=== PATIENT | female | born 1985 | race Caucasian/White ===

== ENCOUNTER 2017-09-26 02:37 | Emergency (ER) | payer OTHER ==
[2017-09-26 02:53] VITALS: BP 118/81; TEMP 99.6; O2SAT 99
[2017-09-26] MEDS: diazePAM 5 MG TAB PO ONE (03:02)
[2017-09-26] MEDS: carBAMazepine 200 MG TAB PO ONE (03:02)
--- NOTE | 2017-09-26 03:37 | ED.PDOC ---
History of Present Illness - General Chief Complaint: Neuro Symptoms/Deficits Stated Complaint: headache, twitching, out of seizure meds Time Seen by Provider: 09/26/17 02:55 Source: patient Exam Limitations: no limitations - History of Present Illness Initial Comments: the patient is a 32-year-old female presenting to the emergency room with her significant other secondary to tremors and diaphoresis and shaking for the last 12 hours. The patient has been out of her Tegretol and Valium. She reports that she takes 250 mg of Tegretol 3 times a day and Valium 10 mg 3 times a day. She also does have anxiety and bipolar issues. She has seizure disorder with multiple kinds of seizures. She has just moved to this area and has not established a new primary care doctor. She is planning to do this after the fourth. Timing/Duration: 24 hours Severity: moderate Improving Factors: nothing Worsening Factors: nothing Associated Symptoms: denies symptoms Allergies/Adverse Reactions: Allergies Aspirin Allergy (Verified 09/26/17 02:52) Ibuprofen Allergy (Verified 09/26/17 02:52) Ketorolac Tromethamine [From Toradol] Allergy (Verified 09/26/17 02:52) Levofloxacin [From Levaquin] Allergy (Verified 09/26/17 02:52) Phenytoin [From Dilantin] Allergy (Verified 09/26/17 02:52) Tramadol Allergy (Verified 09/26/17 02:52) Vancomycin Allergy (Verified 09/26/17 02:52) Home Medications: Ambulatory Orders Diazepam [Valium] 2 mg PO Q8HR PRN #20 tab 09/26/17 Diazepam [Valium] 10 mg PO TID 09/26/17 Zolpidem Tartrate [Ambien] 10 mg PO BEDTIME 09/26/17 carBAMazepine [TEGretol] 200 mg PO Q8HR #45 tab 09/26/17 carBAMazepine [TEGretol] 250 mg PO TID 09/26/17 Review of Systems - Review of Systems Constitutional: States: no symptoms reported EENTM: States: no symptoms reported Respiratory: States: no symptoms reported Cardiology: States: no symptoms reported Gastrointestinal/Abdominal: States: no symptoms reported Genitourinary: States: no symptoms reported Musculoskeletal: States: no symptoms reported Skin: States: no symptoms reported Neurological: States: anxiety, tremors Endocrine: States: no symptoms reported All other Systems: No Change from Baseline Past Medical History (General) - Patient Medical History Hx Seizures: Yes Hx Stroke: No Hx Dementia: No Hx Asthma: Yes Hx of COPD: No Hx Cardiac Disorders: No Hx Congestive Heart Failure: No Hx Pacemaker: No Hx Hypertension: No Hx Thyroid Disease: No Hx Diabetes: No Hx Gastroesophageal Reflux: No Hx Renal Disease: No Hx Cancer: No Hx Hepatitis C: No Surgical History: cholecystectomy, Hysterectomy - Vaccination History Hx Tetanus, Diphtheria Vaccination: Yes Hx Influenza Vaccination: No - refuses to take Hx Pneumococcal Vaccination: No - refuses to take - Social History Hx Tobacco Use: No Hx Alcohol Use: Yes - occasional Family Medical History - Family History Mother Family History: Unknown Physical Exam - Physical Exam General Appearance: Alert, Anxious Eye Exam: bilateral normal Ears, Nose, Throat: hearing grossly normal, normal ENT inspection, normal pharynx Neck: full range of motion, supple Respiratory: lungs clear, normal breath sounds, no respiratory distress, no accessory muscle use Cardiovascular/Chest: normal peripheral pulses, regular rate, rhythm, no edema Peripheral Pulses: radial,right: 2+, radial,left: 2+ Gastrointestinal/Abdominal: non tender, soft Rectal Exam: deferred Back Exam: no vertebral tenderness Extremity: normal range of motion, no pedal edema, normal capillary refill Neurologic: awning hanger II-XII nml as tested, alert, oriented x 3, other - anxious Skin Exam: normal color Comments: Vital Signs - 24 hr 09/26/17 02:37 Temperature 99.6 F Pulse Rate [ 90 monitor] Respiratory 16 Rate Blood Pressure 118/81 [Right Arm] O2 Sat by Pulse 99 Oximetry Progress - Progress Progress: 09/26/17 03:37 the patient is a 32-year-old patient with a history of bipolar disorder and epilepsy presenting secondary to being out of medications and likely and some benzodiazepine withdrawal. The patient was given a dose of Tegretol and the dose of Valium here. She'll be written for 2 weeks worth of Tegretol 200 mg 3 times a day and Valium 2 mg 3 times a day for one week. She needs to reestablish primary care doctor. ER warnings were given. - EKG/XRAY/CT CT Ordered: No Departure - Departure Clinical Impression: Noncompliance Benzodiazepine withdrawal Qualifiers: Complication of substance-induced condition: uncomplicated Qualified Code(s): F13.230 - Sedative, hypnotic or anxiolytic dependence with withdrawal, uncomplicated Epilepsy Qualifiers: Epilepsy type: other generalized Intractability: not intractable Status epilepticus: without status epilepticus Qualified Code(s): G40.409 - Other generalized epilepsy and epileptic syndromes, not intractable, without status epilepticus Disposition: Discharge to Home or Self Care Condition: Fair Departure Forms: ED Discharge - Pt. Copy, Patient Portal Self Enrollment Instructions: Prescription Drug Withdrawal (DC) Diet: regular diet Activity: increase activity as tolerated Prescriptions: carBAMazepine [TEGretol] 200 mg PO Q8HR #45 tab Diazepam [Valium] 2 mg PO Q8HR PRN #20 tab PRN Reason: Anxiety Home Medications: Ambulatory Orders Diazepam [Valium] 2 mg PO Q8HR PRN #20 tab 09/26/17 Diazepam [Valium] 10 mg PO TID 09/26/17 Zolpidem Tartrate [Ambien] 10 mg PO BEDTIME 09/26/17 carBAMazepine [TEGretol] 200 mg PO Q8HR #45 tab 09/26/17 carBAMazepine [TEGretol] 250 mg PO TID 09/26/17 Additional Instructions: the patient is a 32-year-old patient with a history of bipolar disorder and epilepsy presenting secondary to being out of medications and likely and some benzodiazepine withdrawal. The patient was given a dose of Tegretol and the dose of Valium here. She'll be written for 2 weeks worth of Tegretol 200 mg 3 times a day and Valium 2 mg 3 times a day for one week. She needs to reestablish primary care doctor. ER warnings were given.
== END 2017-09-26 03:47 | disposition home or self-care (01) ==
LOC: ER 02:37
DX: F13.230 Sedative, hypnotic or anxiolytic dependence with withdrawal, uncomplicated (principal); G40.409 Other generalized epilepsy and epileptic syndromes, not intractable, without status epilepticus; Z91.19 Patient's noncompliance with other medical treatment and regimen; Z79.899 Other long term (current) drug therapy

== ENCOUNTER 2017-09-28 22:42 | Emergency (ER) | payer OTHER ==
[2017-09-28] MEDS ORDERED: GABAPENTIN 300 MG CAP PO ONE (23:29)
--- NOTE | 2017-09-28 23:32 | ED.PDOC ---
History of Present Illness - General Chief Complaint: Neuro Symptoms/Deficits Stated Complaint: Seizure Time Seen by Provider: 09/28/17 23:22 Source: patient Exam Limitations: no limitations - History of Present Illness Initial Comments: the patient is a 32-year-old female presenting to the emergency room secondary to persistent increase in her epileptic activity according to her. She was seen here a few days ago after she had run out of her medications to treat her epilepsy from a move up from [facility]. She was written for her Tegretol and essentially full dose but the Valium was written at a smaller dose as she was saying that the Valium that she was taking was 10 mg 3 times a day. In the 2 visits that I seen her about not seeing anything that looks like a seizure like activity. At rest she is showing some generalized spastic motions however these do stop when she is distracted by something else. She is alert and oriented. No evidence of any injury. She reports that she has been on Neurontin before as little as 3 or 4 months ago. She does not remember the dose. Timing/Duration: unsure Severity: moderate Improving Factors: nothing Worsening Factors: nothing Associated Symptoms: denies symptoms Allergies/Adverse Reactions: Allergies Aspirin Allergy (Verified 09/28/17 23:26) Ibuprofen Allergy (Verified 09/28/17 23:26) Ketorolac Tromethamine [From Toradol] Allergy (Verified 09/28/17 23:26) Levofloxacin [From Levaquin] Allergy (Verified 09/28/17 23:26) Phenytoin [From Dilantin] Allergy (Verified 09/28/17 23:26) Tramadol Allergy (Verified 09/28/17 23:26) Vancomycin Allergy (Verified 09/28/17 23:26) Home Medications: Ambulatory Orders Diazepam [Valium] 2 mg PO Q8HR PRN #20 tab 09/26/17 Diazepam [Valium] 10 mg PO TID 09/26/17 Zolpidem Tartrate [Ambien] 10 mg PO BEDTIME 09/26/17 carBAMazepine [TEGretol] 200 mg PO Q8HR #45 tab 09/26/17 carBAMazepine [TEGretol] 250 mg PO TID 09/26/17 Gabapentin 100 mg PO TID #30 cap 09/28/17 Review of Systems - Review of Systems Constitutional: States: no symptoms reported EENTM: States: no symptoms reported Respiratory: States: no symptoms reported Cardiology: States: no symptoms reported Gastrointestinal/Abdominal: States: no symptoms reported Genitourinary: States: no symptoms reported Musculoskeletal: States: no symptoms reported Skin: States: no symptoms reported Neurological: States: see HPI Endocrine: States: no symptoms reported All other Systems: No Change from Baseline Past Medical History (General) - Patient Medical History Hx Seizures: Yes Hx Stroke: No Hx Dementia: No Hx Asthma: Yes Hx of COPD: No Hx Cardiac Disorders: No Hx Congestive Heart Failure: No Hx Pacemaker: No Hx Hypertension: No Hx Thyroid Disease: No Hx Diabetes: No Hx Gastroesophageal Reflux: No Hx Renal Disease: No Hx Cancer: No Hx Hepatitis C: No - Vaccination History Hx Tetanus, Diphtheria Vaccination: Yes Hx Influenza Vaccination: No - refuses to take Hx Pneumococcal Vaccination: No - refuses to take - Social History Hx Tobacco Use: No Hx Alcohol Use: Yes - occasional Family Medical History - Family History Mother Family History: Unknown Physical Exam - Physical Exam General Appearance: Alert, No apparent distress Eye Exam: bilateral normal - no abnormal nystagmus. Extraocular movements are intact. Ears, Nose, Throat: hearing grossly normal Neck: full range of motion, supple Respiratory: no respiratory distress, no accessory muscle use Cardiovascular/Chest: normal peripheral pulses, no edema Peripheral Pulses: radial,right: 2+, radial,left: 2+ Gastrointestinal/Abdominal: other - obese Rectal Exam: deferred Extremity: no pedal edema, no calf tenderness, normal capillary refill Neurologic: non food receiving clerk II-XII nml as tested, alert, oriented x 3 Skin Exam: normal color Progress - Progress Progress: 09/28/17 23:33 the patient is a 32-year-old female presenting to the emergency room secondary to what she is reporting to be an increased frequency of her seizure activity. The patient is going to have Neurontin 100 mg 3 times a day added to her medications. She has reported that she is getting set up with a new doctor for management of her seizure activity. She does need to keep this follow-up. ER warnings were given. Departure - Departure Clinical Impression: Epilepsy Qualifiers: Epilepsy type: unspecified Intractability: not intractable Status epilepticus: without status epilepticus Qualified Code(s): G40.909 - Epilepsy, unspecified, not intractable, without status epilepticus Disposition: Discharge to Home or Self Care Condition: Fair Departure Forms: ED Discharge - Pt. Copy, Patient Portal Self Enrollment Diet: regular diet Activity: increase activity as tolerated Prescriptions: Gabapentin 100 mg PO TID #30 cap Home Medications: Ambulatory Orders Diazepam [Valium] 2 mg PO Q8HR PRN #20 tab 09/26/17 Diazepam [Valium] 10 mg PO TID 09/26/17 Zolpidem Tartrate [Ambien] 10 mg PO BEDTIME 09/26/17 carBAMazepine [TEGretol] 200 mg PO Q8HR #45 tab 09/26/17 carBAMazepine [TEGretol] 250 mg PO TID 09/26/17 Gabapentin 100 mg PO TID #30 cap 09/28/17 Additional Instructions: the patient is a 32-year-old female presenting to the emergency room secondary to what she is reporting to be an increased frequency of her seizure activity. The patient is going to have Neurontin 100 mg 3 times a day added to her medications. She has reported that she is getting set up with a new doctor for management of her seizure activity. She does need to keep this follow-up. ER warnings were given. seizure activity precautions were given.
[2017-09-28 23:34] VITALS: O2SAT 96
[2017-09-28 23:36] VITALS: TEMP 98.9
[2017-09-28 23:44] VITALS: BP 103/73
== END 2017-09-28 23:43 | disposition home or self-care (01) ==
LOC: ER 22:42
DX: G40.909 Epilepsy, unspecified, not intractable, without status epilepticus (principal); Z79.899 Other long term (current) drug therapy

== ENCOUNTER → 2017-10-06 | Outpatient (CLI) | payer OTHER ==
--- NOTE | 2017-10-10 10:17 | MAM ---
EXAM DESCRIPTION: 3D Screening BILATERAL : Digital Mammography. CLINICAL HISTORY: 32 years Female SCREENING . No complaints. Sister and mother with breast cancer. Childbirth. Postmenopausal. No HRT.. COMPARISON: Baseline study at this facility.. No prior reports available. Reports from prior examinations also reviewed. Report from prior examination also reviewed. TECHNIQUE: Bilateral CC and MLO projection full-field images, 3-D tomosynthesis digital mammographic technique. CAD not utilized. FINDINGS: The breast parenchymal density pattern is: Scattered areas of fibroglandular density. No skin thickening or nipple retraction. Probable skin mole upper bilateral right breast posterior third. Left axillary lymph node. Small solitary microcalcifications bilaterally. No new focal, stellate mass or density, focal asymmetry , and no suspicious microcalcifications. IMPRESSION: BI-RADS CATEGORY: 2 - BENIGN FINDINGS. FOLLOW UP: Routine digital bilateral screening, one year interval from September 2017. Normally, screening would began at age 40 (please see below), but starting earlier due to strong positive family history. Also consider yearly breast MRI without and with gadolinium IV contrast due to strong positive family history (please see below.) Written communication explaining the IMPRESSION and follow-up, will be mailed to the patient and referring health care provider. According to the [employer], yearly mammograms are recommended starting at age 40 and continuing as long as a woman is in good health. Any breast change noted on a breast self-exam should be reported promptly to the patient's healthcare provider. Breast MRI is recommended for women with an approximately 20-25% or greater lifetime risk of breast cancer, including women with a strong family history of breast or ovarian cancer and women who have been treated for Hodgkin's disease. A negative mammographic report should not delay tissue diagnosis in patients with significant clinical history or physical findings. Extremely dense breast tissue limits the sensitivity of digital mammography. Electronically signed by: Monty Kim MD 10/10/2017 10:15 AM CDT
== END ==
LOC: MAMMO 12:31
PROVIDERS: ATTEND Nurse Practitioner Family
DX: Z12.31 Encounter for screening mammogram for malignant neoplasm of breast (principal); G40.909 Epilepsy, unspecified, not intractable, without status epilepticus

== ENCOUNTER 2017-12-10 03:00 | Emergency (ER) | payer OTHER ==
--- NOTE | 2017-12-10 03:39 | ED.PDOC ---
History of Present Illness - General Chief Complaint: Back Pain or Injury Stated Complaint: low back pain Time Seen by Provider: 12/10/17 03:25 Source: patient Exam Limitations: no limitations - History of Present Illness Initial Comments: Betsey Rowan 32 y/o female stated that she was reaching package on top of the fridge the stool that she was standing on slipped off then fell on her back.Had dull ache from her neck down to her back non radiating.Denies head injury;no blurry vision.No bladder or bowel dysfunction,no numbness,no weakness. Timing/Duration: 4-6 hours Quality/Severity: dullness Back Pain Location: C-spine, T-spine, lumbar spine, other - left shoulder Back Pain Radiation: other - none Method of Injury/Prior Injury: fell Improving Factors: rest Worsening Factors: movement Associated Symptoms: denies symptoms Allergies/Adverse Reactions: Allergies Aspirin Allergy (Verified 09/28/17 23:26) Ibuprofen Allergy (Verified 09/28/17 23:26) Ketorolac Tromethamine [From Toradol] Allergy (Verified 09/28/17 23:26) Levofloxacin [From Levaquin] Allergy (Verified 09/28/17 23:26) Phenytoin [From Dilantin] Allergy (Verified 09/28/17 23:26) Tramadol Allergy (Verified 09/28/17 23:26) Vancomycin Allergy (Verified 09/28/17 23:26) Home Medications: Ambulatory Orders Diazepam [Valium] 2 mg PO Q8HR PRN #20 tab 09/26/17 Diazepam [Valium] 10 mg PO TID 09/26/17 Zolpidem Tartrate [Ambien] 10 mg PO BEDTIME 09/26/17 carBAMazepine [TEGretol] 200 mg PO Q8HR #45 tab 09/26/17 carBAMazepine [TEGretol] 250 mg PO TID 09/26/17 Gabapentin 100 mg PO TID #30 cap 09/28/17 Baclofen 20 mg PO BID #10 tab 12/10/17 Review of Systems - Review of Systems Constitutional: States: no symptoms reported EENTM: States: no symptoms reported Respiratory: States: no symptoms reported Cardiology: States: no symptoms reported Gastrointestinal/Abdominal: States: no symptoms reported Genitourinary: States: no symptoms reported Musculoskeletal: States: back pain Skin: States: no symptoms reported Neurological: States: no symptoms reported Past Medical History (General) - Patient Medical History Hx Seizures: Yes Hx Stroke: No Hx Dementia: No Hx Asthma: Yes Hx of COPD: No Hx Cardiac Disorders: No Hx Congestive Heart Failure: No Hx Pacemaker: No Hx Hypertension: No Hx Thyroid Disease: No Hx Diabetes: No Hx Gastroesophageal Reflux: No Hx Renal Disease: No Hx Cancer: No Hx Hepatitis C: No Hx Other PMH: Yes - bipolar Surgical History: cholecystectomy, Hysterectomy, other - hyaterectomy - Vaccination History Hx Tetanus, Diphtheria Vaccination: Yes Hx Influenza Vaccination: No Hx Pneumococcal Vaccination: No - Social History Hx Tobacco Use: No Hx Alcohol Use: No Hx Substance Use: No Hx Substance Use Treatment: No Hx Depression: No Hx Physical Abuse: No Hx Emotional Abuse: No - Female History Patient is a Female of Child Bearing Age (10 -59 yrs old): No - Triage Comment ED Triage Comment: Pt reports she fell off chair trying to reach for something up in cabinet. This occurred earlier in evening. PT took some tylenol but no relief. Pt hurts in upper back shoulder area Family Medical History - Family History Mother Family History: Unknown Hx Family Asthma: Yes - child Hx Family Cancer: Yes - breast-sister Physical Exam - Physical Exam General Appearance: Alert, Comfortable, No apparent distress Eyes, Ears, Nose, Throat Exam: normal ENT inspection Neck Exam: non-tender, normal alignment, normal inspection, limited range of motion, muscle spasm Cardiovascular/Respiratory: regular rate, rhythm, no M/R/G, normal peripheral pulses Peripheral Pulses: radial,right: 2+, radial,left: 2+ Gastrointestinal/Abdominal: normal bowel sounds, non tender, soft, no organomegaly Back Exam: no CVA tenderness, no vertebral tenderness, muscle spasm - paralumbar muscle Extremity Exam: no evidence of injury, normal range of motion - both hips,no pain on external/ internal rotation, non-tender, no pedal edema, pelvis stable Neurologic: no motor/sensory deficits, alert, oriented x 3, other - negative straight leg raising test bilaterally Progress - Progress Progress: 12/10/17 03:45 Vital Signs - 8 hr 12/10/17 03:11 Temperature 98.9 F Pulse Rate [ 108 H left] Respiratory 18 Rate Blood Pressure 123/77 [left] O2 Sat by Pulse 96 Oximetry - EKG/XRAY/CT XRAY: c-spine,left shoulder,lumbar spine-no fracture Departure - Departure Clinical Impression: Muscle spasm Fall at home Qualifiers: Encounter type: initial encounter Qualified Code(s): W19.XXXA - Unspecified fall, initial encounter; Y92.009 - Unspecified place in unspecified non- institutional (private) residence as the place of occurrence of the external cause; Y92.009 - Unspecified place in unspecified non-institutional (private) residence as the place of occurrence of the external cause Backache, unspecified Qualifiers: Back pain location: back pain in unspecified location Chronicity: unspecified Back pain laterality: midline Qualified Code(s): M54.89 - Other dorsalgia Time of Disposition: 04:45 Disposition: Discharge to Home or Self Care Condition: Fair Departure Forms: ED Discharge - Pt. Copy, Patient Portal Self Enrollment Instructions: DI for Low Back Pain, DI for Back Spasm Referrals: Rach Howard, [employer] [Primary Care Provider] - 1-2 Weeks Prescriptions: Baclofen 20 mg PO BID #10 tab Home Medications: Ambulatory Orders Diazepam [Valium] 2 mg PO Q8HR PRN #20 tab 09/26/17 Diazepam [Valium] 10 mg PO TID 09/26/17 Zolpidem Tartrate [Ambien] 10 mg PO BEDTIME 09/26/17 carBAMazepine [TEGretol] 200 mg PO Q8HR #45 tab 09/26/17 carBAMazepine [TEGretol] 250 mg PO TID 09/26/17 Gabapentin 100 mg PO TID #30 cap 09/28/17 Baclofen 20 mg PO BID #10 tab 12/10/17 Additional Instructions: Follow up with primary Md 12 December 2017 as needed
--- NOTE | 2017-12-10 04:23 | RAD ---
EXAM DESCRIPTION: Shoulder,Left 2 or More Views CLINICAL HISTORY: 32 years Female, fall/pain COMPARISON: None. FINDINGS: No fracture or dislocation. Soft tissues are unremarkable. IMPRESSION: No acute abnormality. Electronically signed by: Roque Chavez DO 12/10/2017 4:22 AM CDT
--- NOTE | 2017-12-10 04:24 | RAD ---
EXAM DESCRIPTION: Cervical Spine,3 Views CLINICAL HISTORY: 32 years Female, fall/pain COMPARISON: None. FINDINGS: Disc space narrowing and marginal osteophytes throughout the cervical spine most pronounced at C5-6. There is straightening of the normal cervical lordosis. No subluxation. No acute fracture. Soft tissues are unremarkable. IMPRESSION: No acute abnormality. Electronically signed by: Roque Chavez DO 12/10/2017 4:23 AM CDT
--- NOTE | 2017-12-10 04:25 | RAD ---
EXAM DESCRIPTION: Lumbar Spine 3 Views CLINICAL HISTORY: 32 years Female, fall/pain COMPARISON: None. FINDINGS: The vertebral body heights and disc spaces are preserved. No acute fracture or subluxation. Soft tissues are unremarkable. IMPRESSION: No acute abnormality. Electronically signed by: Roque Chavez DO 12/10/2017 4:23 AM CDT
[2017-12-10] MEDS ORDERED: PROMETHAZINE HCL INJ 25 MG/ML VIAL IM ONE (04:36)
[2017-12-10] MEDS ORDERED: MORPHINE SULFATE INJ 10 MG/ML VIAL IM ONE (04:36)
[2017-12-10] MEDS ORDERED: ORPHENADRINE CITRATE 30 MG/ML AMP IM ONE (04:36)
[2017-12-10] MEDS ORDERED: ACETAMINOPHEN W/COD #3 TAB (ER Disp) PO ONE (04:42)
[2017-12-10 04:52] VITALS: O2SAT 98
[2017-12-10 05:12] VITALS: BP 123/78; TEMP 97
--- NOTE | 2017-12-10 07:25 | RAD ---
EXAM DESCRIPTION: Thoracic Spine Lateral Only CLINICAL HISTORY: 32 years Female, fall/pain COMPARISON: None. FINDINGS: Only a lateral and swimmer's view were provided. No obvious fracture or subluxation. Soft tissues are grossly unremarkable. IMPRESSION: No gross abnormalities on limited lateral views of the thoracic spine. Electronically signed by: Roque Chavez DO 12/10/2017 7:24 AM CDT
== END 2017-12-10 05:00 | disposition home or self-care (01) ==
LOC: ER 03:00
DX: M62.830 Muscle spasm of back (principal); M25.512 Pain in left shoulder; F31.9 Bipolar disorder, unspecified; J45.909 Unspecified asthma, uncomplicated; Z79.899 Other long term (current) drug therapy; Z88.8 Allergy status to other drugs, medicaments and biological substances; Z88.1 Allergy status to other antibiotic agents; Z88.6 Allergy status to analgesic agent; Z90.49 Acquired absence of other specified parts of digestive tract; W17.89XA Other fall from one level to another, initial encounter; Y92.009 Unspecified place in unspecified non-institutional (private) residence as the place of occurrence of the external cause; Y93.89 Activity, other specified
CPT/HCPCS: 72020; 72040; 72100; 73030; J2270; J2360; J2550

== ENCOUNTER 2017-12-10 13:24 | Emergency (ER) | payer OTHER ==
[2017-12-10] MEDS ORDERED: TETRACAINE HCL 0.5% OPHTH SOL 1 DROP OPHTH ONE (13:25)
[2017-12-10] MEDS ORDERED: LORazepam 0.5 MG TAB PO ONE (13:55)
--- NOTE | 2017-12-10 14:12 | ED.PDOC ---
History of Present Illness - General Chief Complaint: Eye Problems Stated Complaint: eye pain Time Seen by Provider: 12/10/17 14:07 Source: patient Exam Limitations: no limitations Additional Information: 32 YEAR OLD WHITE FEMALE PRESENTS WITH LEFT EYE BLURRED VISION ITCHING AND BLEEDING FROM THAT EYE SUDDEN ONSET TODAY NO SIMILAR PROBLEMS IN THE PAST SHE HAS HISTORY OF SEIZURES BIPOLAR DISORSER ANXIETY DM ON DIET CONTROL SHE HAS ALLERGIES NO PETS IN HER APPARTMENT SHE HAS NO EYE PAIN MORE OF A IRRITATION THOUGHT SHE COULD NOT READ ANY LETTERS ON THE CHART AFTER TETRACAINE INSTILLATION AND SHE HAD A VISION OF 20/ 40 ON THE AFFECTED LEFT EYE 20/30 ON THE UNAFFECTED RIGHT EYE PUPILS EQUAL AND REACTIVE CONJUNCTIVA ON THE LEFT SIDE WAS INJECTED AND EYELIDS WERE MILDLY SWOLLEN NO MATTING NOTED NO MUCO-PURULANT DISCHARGE - History of Present Illness Timing/Duration: abrupt, this morning EENT Location: eye (L) Improving Factors: nothing Worsening Factors: nothing Associated Symptoms: denies symptoms Allergies/Adverse Reactions: Allergies Aspirin Allergy (Verified 09/28/17 23:26) Ibuprofen Allergy (Verified 09/28/17 23:26) Ketorolac Tromethamine [From Toradol] Allergy (Verified 09/28/17 23:26) Levofloxacin [From Levaquin] Allergy (Verified 09/28/17 23:26) Phenytoin [From Dilantin] Allergy (Verified 09/28/17 23:26) Tramadol Allergy (Verified 09/28/17 23:26) Vancomycin Allergy (Verified 09/28/17 23:26) Home Medications: Ambulatory Orders Diazepam [Valium] 2 mg PO Q8HR PRN #20 tab 09/26/17 Diazepam [Valium] 10 mg PO TID 09/26/17 Zolpidem Tartrate [Ambien] 10 mg PO BEDTIME 09/26/17 carBAMazepine [TEGretol] 200 mg PO Q8HR #45 tab 09/26/17 carBAMazepine [TEGretol] 250 mg PO TID 09/26/17 Gabapentin 100 mg PO TID #30 cap 09/28/17 Baclofen 20 mg PO BID #10 tab 12/10/17 Olopatadine HCl [Patanol] 0.1 % OP Q6HRS #1 stas 12/10/17 Review of Systems - Review of Systems Constitutional: States: no symptoms reported EENTM: States: blurred vision Respiratory: States: no symptoms reported Cardiology: States: no symptoms reported Gastrointestinal/Abdominal: States: no symptoms reported Genitourinary: States: no symptoms reported Musculoskeletal: States: no symptoms reported Skin: States: no symptoms reported Neurological: States: no symptoms reported Endocrine: States: no symptoms reported Hematologic/Lymphatic: States: no symptoms reported Past Medical History (General) - Patient Medical History Hx Seizures: Yes Hx Stroke: No Hx Dementia: No Hx Asthma: Yes Hx of COPD: No Hx Cardiac Disorders: No Hx Congestive Heart Failure: No Hx Pacemaker: No Hx Hypertension: No Hx Thyroid Disease: No Hx Diabetes: No Hx Gastroesophageal Reflux: No Hx Renal Disease: No Hx Cancer: No Hx Hepatitis C: No - Vaccination History Hx Tetanus, Diphtheria Vaccination: Yes Hx Influenza Vaccination: No Hx Pneumococcal Vaccination: No - Social History Hx Tobacco Use: No Hx Alcohol Use: No Hx Substance Use: No Hx Substance Use Treatment: No Hx Depression: No Hx Physical Abuse: No Hx Emotional Abuse: No Family Medical History - Family History Mother Family History: Unknown Hx Family Asthma: Yes - child Hx Family Cancer: Yes - breast-sister Physical Exam - Physical Exam General Appearance: Alert, Comfortable Eye Exam: right normal, left conjunctivae pale - INJECTED, left other - EDEMATOUS Nasal Exam: normal inspection Throat Exam: normal mouth inspection, pharynx normal, dental tenderness Neck: non-tender, full range of motion, supple 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 Copy, Patient Portal Self Enrollment Referrals: Rach Howard NP [Primary Care Provider] - 1-2 Weeks Prescriptions: Olopatadine HCl [Patanol] 0.1 % OP Q6HRS #1 stas Home Medications: Ambulatory Orders Diazepam [Valium] 2 mg PO Q8HR PRN #20 tab 09/26/17 Diazepam [Valium] 10 mg PO TID 09/26/17 Zolpidem Tartrate [Ambien] 10 mg PO BEDTIME 09/26/17 carBAMazepine [TEGretol] 200 mg PO Q8HR #45 tab 09/26/17 carBAMazepine [TEGretol] 250 mg PO TID 09/26/17 Gabapentin 100 mg PO TID #30 cap 09/28/17 Baclofen 20 mg PO BID #10 tab 12/10/17 Olopatadine HCl [Patanol] 0.1 % OP Q6HRS #1 stas 12/10/17
[2017-12-10 14:34] VITALS: BP 132/73; TEMP 97.4; O2SAT 95
== END 2017-12-10 14:22 | disposition home or self-care (01) ==
LOC: ER 13:24
DX: H10.12 Acute atopic conjunctivitis, left eye (principal); F31.9 Bipolar disorder, unspecified; F41.9 Anxiety disorder, unspecified; R56.9 Unspecified convulsions; E11.9 Type 2 diabetes mellitus without complications; J45.909 Unspecified asthma, uncomplicated; Z79.899 Other long term (current) drug therapy; Z88.6 Allergy status to analgesic agent; Z88.1 Allergy status to other antibiotic agents; Z88.8 Allergy status to other drugs, medicaments and biological substances

== ENCOUNTER 2017-12-14 19:49 | Emergency (ER) | payer OTHER ==
--- NOTE | 2017-12-14 19:58 | ED.PDOC ---
History of Present Illness - General Time Seen by Provider: 12/14/17 19:53 Source: patient, RN notes reviewed, Vital Signs reviewed, EMS notes reviewed Exam Limitations: no limitations - History of Present Illness Timing/Duration: 1/2 hour, other - hit right side of head Severity: moderate Improving Factors: nothing Worsening Factors: nothing Associated Symptoms: loss of consciousness, seizures Allergies/Adverse Reactions: Allergies Aspirin Allergy (Verified 09/28/17 23:26) Ibuprofen Allergy (Verified 09/28/17 23:26) Ketorolac Tromethamine [From Toradol] Allergy (Verified 09/28/17 23:26) Levofloxacin [From Levaquin] Allergy (Verified 09/28/17 23:26) Phenytoin [From Dilantin] Allergy (Verified 09/28/17 23:26) Tramadol Allergy (Verified 09/28/17 23:26) Vancomycin Allergy (Verified 09/28/17 23:26) Home Medications: Ambulatory Orders Diazepam [Valium] 2 mg PO Q8HR PRN #20 tab 09/26/17 Diazepam [Valium] 10 mg PO TID 09/26/17 Zolpidem Tartrate [Ambien] 10 mg PO BEDTIME 09/26/17 carBAMazepine [TEGretol] 200 mg PO Q8HR #45 tab 09/26/17 carBAMazepine [TEGretol] 250 mg PO TID 09/26/17 Gabapentin 100 mg PO TID #30 cap 09/28/17 Baclofen 20 mg PO BID #10 tab 12/10/17 Olopatadine HCl [Patanol] 0.1 % OP Q6HRS #1 stas 12/10/17 Acetaminophen W/ Codeine [Tylenol W/ CODEINE #3] 1 ea PO Q6H PRN #6 12/14/17 Ondansetron Odt (ER Disp) [Zofran ODT (ER DISP)] 8 mg PO BID PRN #6 tab Review of Systems - Review of Systems Constitutional: States: no symptoms reported EENTM: States: no symptoms reported Respiratory: States: no symptoms reported Cardiology: States: no symptoms reported Gastrointestinal/Abdominal: States: nausea, vomiting Genitourinary: States: no symptoms reported Musculoskeletal: States: no symptoms reported Skin: States: no symptoms reported Neurological: States: headache, seizure Endocrine: States: no symptoms reported Hematologic/Lymphatic: States: no symptoms reported Past Medical History (General) - Patient Medical History Hx Seizures: Yes Hx Stroke: No Hx Dementia: No Hx Asthma: Yes Hx of COPD: No Hx Cardiac Disorders: No Hx Congestive Heart Failure: No Hx Pacemaker: No Hx Hypertension: No Hx Thyroid Disease: No Hx Diabetes: No Hx Gastroesophageal Reflux: No Hx Renal Disease: No Hx Cancer: No Hx Hepatitis C: No - Vaccination History Hx Tetanus, Diphtheria Vaccination: Yes Hx Influenza Vaccination: No Hx Pneumococcal Vaccination: No - Social History Hx Tobacco Use: No Hx Alcohol Use: No Hx Substance Use: No Hx Substance Use Treatment: No Hx Depression: No Hx Physical Abuse: No Hx Emotional Abuse: No Family Medical History - Family History Mother Family History: Unknown Hx Family Asthma: Yes - child Hx Family Cancer: Yes - breast-sister Physical Exam - Physical Exam General Appearance: Alert, Well Developed, Well Groomed, Well Hydrated, Well Nourished Eye Exam: bilateral normal ENT Exam: normal ENT inspection, hearing grossly normal, TMs normal, pharynx normal, nasal congestion Neck: non-tender, full range of motion, supple, normal inspection Respiratory: chest non-tender, lungs clear, normal breath sounds, no respiratory distress, no accessory muscle use Cardiovascular/Chest: normal peripheral pulses, regular rate, rhythm, no edema, no gallop Peripheral Pulses: radial,right: 2+ Gastrointestinal/Abdominal: non tender, soft Back Exam: normal inspection, no CVA tenderness, no vertebral tenderness Extremities Exam: non-tender, normal range of motion, no evidence of injury Mental Status: alert, 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 pt states that has been non compliant with tegretol; chart review shows she has history of this. 12/14/17 20:37 ct head negative, no seizure in the ED, baseline neuro, GCS3, Laboratory Results Sodium 138 mmol/L (135-145) 12/14/17 20:02 Potassium 3.9 mmol/L (3.6-5.0) 12/14/17 20:02 Chloride 103 mmol/L (101-111) 12/14/17 20:02 Carbon Dioxide 27 mmol/L (21-31) 12/14/17 20:02 Anion Gap 11.9 (12-18) L 12/14/17 20:02 BUN 10 mg/dL (7-18) 12/14/17 20:02 Creatinine 0.70 mg/dL (0.6-1.3) 12/14/17 20:02 BUN/Creatinine Ratio 14.3 (10-20) 12/14/17 20:02 Random Glucose 107 mg/dL (70-105) H 12/14/17 20:02 Serum Osmolality 275.2 mOsm/L (275-295) 12/14/17 20:02 Calcium 8.7 mg/dL (8.4-10.2) 12/14/17 20:02 Total Bilirubin < 0.2 mg/dL (0.2-1.0) L 12/14/17 20:02 AST 18 IU/L (10-42) 12/14/17 20:02 ALT 17 IU/L (10-60) 12/14/17 20:02 Alkaline Phosphatase 101 IU/L (42-121) 12/14/17 20:02 Serum Total Protein 6.7 gm/dL (6.4-8.2) 12/14/17 20:02 Albumin 3.3 g/dl (3.2-5.5) 12/14/17 20:02 Globulin 3.4 gm/dL (2.3-3.5) 12/14/17 20:02 Albumin/Globulin Ratio 1.0 (1.1-1.9) L 12/14/17 20:02 Departure - Departure Clinical Impression: Seizure Closed head injury Qualifiers: Encounter type: initial encounter Qualified Code(s): S09.90XA - Unspecified injury of head, initial encounter Nausea and vomiting Qualifiers: Vomiting type: unspecified Vomiting Intractability: non-intractable Qualified Code(s): R11.2 - Nausea with vomiting, unspecified Time of Disposition: 20:33 Disposition: Discharge to Home or Self Care Condition: Excellent Instructions: DI for Concussion, Epilepsy in Adults Diet: full liquid diet Activity: increase activity as tolerated Referrals: Rach Howard MACHINE CLOTHING REPLACER [Primary Care Provider] - 1-5 Days Prescriptions: Acetaminophen W/ Codeine [Tylenol W/ CODEINE #3] 1 ea PO Q6H PRN #6 PRN Reason: Pain Ondansetron Odt (ER Disp) [Zofran ODT (ER DISP)] 8 mg PO BID PRN #6 tab PRN Reason: Nausea -- Severe Home Medications: Ambulatory Orders Diazepam [Valium] 2 mg PO Q8HR PRN #20 tab 09/26/17 Diazepam [Valium] 10 mg PO TID 09/26/17 Zolpidem Tartrate [Ambien] 10 mg PO BEDTIME 09/26/17 carBAMazepine [TEGretol] 200 mg PO Q8HR #45 tab 09/26/17 carBAMazepine [TEGretol] 250 mg PO TID 09/26/17 Gabapentin 100 mg PO TID #30 cap 09/28/17 Baclofen 20 mg PO BID #10 tab 12/10/17 Olopatadine HCl [Patanol] 0.1 % OP Q6HRS #1 stas 12/10/17 Acetaminophen W/ Codeine [Tylenol W/ CODEINE #3] 1 ea PO Q6H PRN #6 12/14/17 Ondansetron Odt (ER Disp) [Zofran ODT (ER DISP)] 8 mg PO BID PRN #6 tab
[2017-12-14] MEDS: ONDANSETRON INJ 4 MG/2 ML VIAL IV ONE (20:21)
[2017-12-14] MEDS: ACETAMINOPHEN 500 MG TAB PO ONE (20:22)
[2017-12-14] MEDS: LORazepam 0.5 MG TAB PO ONE (20:22)
--- NOTE | 2017-12-14 20:30 | CT ---
CT head without contrast on 12/14/2017 CLINICAL INDICATION: Head trauma, seizure TECHNIQUE: Multiple axial images are obtained throughout the head without the administration of contrast. This exam was performed according to our departmental dose-optimization program, which includes automated exposure control, adjustment of the mA and/or kV according to patient size and/or use of iterative reconstruction technique. Total DLP is 859.97 mGy*cm. COMPARISON: 08/22/2017 FINDINGS: There is no hydrocephalus. There is no CT evidence of acute infarct. There is no hemorrhage. There are no abnormal extra-axial fluid collections. There is no mass, mass effect or midline shift. No bony abnormality is noted. IMPRESSION: No acute intracranial abnormality. Electronically signed by: Greg Stover 12/14/2017 8:29 PM CDT
[2017-12-14 20:34] VITALS: TEMP 98.4
[2017-12-14] MEDS: ACETAMINOPHEN W/COD #3 TAB 1 EA TAB PO ONE (20:56)
[2017-12-14] MEDS: ONDANSETRON ODT (ER DISP) 8 MG TAB PO ONE (20:57)
[2017-12-14 21:05] VITALS: BP 113/60; O2SAT 96
== END 2017-12-14 21:06 | disposition home or self-care (01) ==
LOC: ER 19:49
DX: S09.90XA Unspecified injury of head, initial encounter (principal); R56.9 Unspecified convulsions; R11.2 Nausea with vomiting, unspecified; J45.909 Unspecified asthma, uncomplicated; Z79.899 Other long term (current) drug therapy; X58.XXXA Exposure to other specified factors, initial encounter; Y92.002 Bathroom of unspecified non-institutional (private) residence as the place of occurrence of the external cause
CPT/HCPCS: 36415; 70450; 80053; J2405

== ENCOUNTER 2017-12-20 08:21 | Emergency (ER) | payer OTHER ==
[2017-12-20 08:34] VITALS: TEMP 97.8
--- NOTE | 2017-12-20 09:08 | ED.PDOC ---
History of Present Illness - General Chief Complaint: Abdominal Pain Stated Complaint: RLQ abdominal pain Time Seen by Provider: 12/20/17 09:02 Information Source: patient Exam Limitations: no limitations - History of Present Illness Initial Comments: RLQ ABD PAIN. STARTED [place] LAST NOC. N/V. PSH: JAMES TATYANA, C-SXN, TAHBSO (HYSTER FOR UTERINE CA). PT ASSURES ME SHE IS NOT ALLERGIC TO DILAUDID OR TYLENOL WITH CODEINE. Abdominal Pain Onset Location: RLQ Pain Radiation: no radiation Quality: severe Timing/Duration: 7-24 hours, constant, getting worse Improving Factors: nothing Worsening Factors: nothing Associated Symptoms: nausea/vomiting Review of Systems - Review of Systems Constitutional: Denies: diaphoresis, fever EENTM: States: no symptoms reported Respiratory: States: no symptoms reported Cardiology: States: no symptoms reported. Denies: chest pain, palpitations Gastrointestinal/Abdominal: States: see HPI, abdominal pain, nausea, vomiting. Denies: diarrhea Genitourinary: Denies: dysuria, frequency Musculoskeletal: States: no symptoms reported Skin: States: no symptoms reported Neurological: States: no symptoms reported Endocrine: States: no symptoms reported Hematologic/Lymphatic: States: no symptoms reported All other Systems: Reviewed and Negative Past Medical History (General) - Patient Medical History Hx Seizures: Yes Hx Stroke: No Hx Dementia: No Hx Asthma: Yes Hx of COPD: No Hx Cardiac Disorders: No Hx Congestive Heart Failure: No Hx Pacemaker: No Hx Hypertension: No Hx Thyroid Disease: No Hx Diabetes: No Hx Gastroesophageal Reflux: No Hx Renal Disease: No Hx Cancer: No Hx of HIV: No Hx Hepatitis C: No Hx MRSA: No Surgical History: cholecystectomy, Hysterectomy - Vaccination History Hx Tetanus, Diphtheria Vaccination: Yes Hx Influenza Vaccination: No Hx Pneumococcal Vaccination: No - Social History Hx Tobacco Use: No Hx Alcohol Use: No Hx Substance Use: No Hx Substance Use Treatment: No Hx Depression: No Hx Physical Abuse: No Hx Emotional Abuse: No Family Medical History - Family History Mother Family History: Unknown Hx Family Asthma: Yes - child Hx Family Cancer: Yes - breast-sister Physical Exam - Physical Exam General Appearance: Alert, Obvious distress Eyes, Ears, Nose, Throat Exam: PERRL/EOMI, normal ENT inspection Neck: non-tender, full range of motion Respiratory: lungs clear, normal breath sounds, no respiratory distress Cardiovascular/Chest: normal peripheral pulses, regular rate, rhythm, no murmur Peripheral Pulses: No deficit Gastrointestinal/Abdominal: normal bowel sounds, soft, no organomegaly, no pulsatile mass, tenderness - RLQ AT MCBURNEY'S POINT. Rectal Exam: deferred Back Exam: normal inspection, no CVA tenderness Extremity: normal range of motion, normal inspection Neurologic: no motor/sensory deficits, alert, normal mood/affect Skin Exam: normal color, warm/dry Lymphatic: no adenopathy Progress - Progress Progress: 12/20/17 11:26 PT STATES HER RLQ PAIN IS RETURNING. CT NEG FOR APPY. CT NOT ABLE TO R/O A 3 MM R DISTAL URETERAL NEPHROLITHIASIS. THIS CORRELATES CLINICALLY, THUS I WILL GIVE NS BOLUS AND REPEAT PAIN MED SINCE SHE IS C/O HER PAIN HAVING RETURNED. 12/20/17 11:28 CBC NEG. UA NEG FOR IFXN. LIPASE NEG. CMP NEG EXCEPT K+ 3.5. 12/20/17 12:52 I EXPLAINED TO PT THAT HER STONE IS SMALL ENOUGH SHE WILL PASS IT AT HOME. PT IS COMFORTABLE BEING DC'D TO HOME WITH PAIN PILLS AND ANTIEMETIC. SAFE FOR DC TO HOME. Departure - Departure Clinical Impression: Right nephrolithiasis, RLQ abdominal pain Nausea & vomiting Qualifiers: Vomiting type: unspecified Vomiting Intractability: non-intractable Qualified Code(s): R11.2 - Nausea with vomiting, unspecified Disposition: Discharge to Home or Self Care Condition: Good Departure Forms: ED Discharge - Pt. Copy, Patient Portal Self Enrollment Instructions: Kidney Stones in Adults Diet: resume usual diet Activity: increase activity as tolerated Referrals: Rach Howard NP [Primary Care Provider] - 1-2 Weeks Prescriptions: Ondansetron [Zofran Odt] 8 mg PO Q8HRS PRN #20 tab PRN Reason: Nausea/Vomiting Acetaminophen W/ Codeine [Tylenol W/ CODEINE #3] 1 ea PO Q6H PRN #20 PRN Reason: Pain Home Medications: Ambulatory Orders Acetaminophen W/ Codeine [Tylenol W/ CODEINE #3] 1 ea PO Q6H PRN #6 12/14/17 Gabapentin [Neurontin] 300 mg PO TID 12/14/17 Ondansetron Odt (ER Disp) [Zofran ODT (ER DISP)] 8 mg PO BID PRN #6 tab Acetaminophen W/ Codeine [Tylenol W/ CODEINE #3] 1 ea PO Q6H PRN #20 12/20/17 Ondansetron [Zofran Odt] 8 mg PO Q8HRS PRN #20 tab 12/20/17 Additional Instructions: Please drink at least 64 oz of water per day.
[2017-12-20] MEDS ORDERED: HYDROmorphone HCL INJ 2 MG/ML VIAL IV ONE ×2 (09:38→11:27)
[2017-12-20] MEDS ORDERED: ONDANSETRON INJ 4 MG/2 ML VIAL IV ONE (09:38)
--- NOTE | 2017-12-20 10:34 | CT ---
EXAM DESCRIPTION: CT ABDOMEN AND PELVIS WITH CONTRAST CLINICAL HISTORY: RLQ PAIN COMPARISON: None Available. TECHNIQUE: CT of the abdomen and pelvis are performed during IV bolus administration of routine adult dose of nonionic iodinated contrast. No oral contrast. FINDINGS: In the lower chest, the lung bases are clear. Heart size is normal. CT abdomen Gallbladder is surgically absent. Common duct is normal in caliber. The liver, spleen, pancreas, adrenal glands, stomach and kidneys are normal in appearance. No inflammation around the pancreas. No renal stones or hydronephrosis. No bowel dilatation to suggest obstruction. No free air or free fluid. CT pelvis Appendix appears normal. No inflammation around the cecum or terminal ileum or sigmoid colon. Bladder and distal ureters are thought to be negative for stones although the small ureters are difficult to follow through the pelvis. Pelvic calcifications are probably phleboliths. Normal enhancement of pelvic vessels. No inguinal or lower pelvic adenopathy. Bone window images are negative for fracture or lytic lesion. Vacuum phenomenon in the SI joints. Delayed images show normal contrast in the urinary collecting systems. Unfortunately, no contrast is seen in the most distal portion of the right ureter to determine the position of the ureter relative to the right pelvic calcification. As best can be determined, this calcification is most likely a phlebolith since the ureter is nondilated and there is no hydronephrosis on the right side. Chronically compensated calculus in the distal ureter 3 mm in size certainly cannot be excluded. Coronal and sagittal reformatted images confirm the findings. IMPRESSION: Without obstructive uropathy, the 3 mm calcification in the right pelvis is most likely a phlebolith. See above. Normal CT appearance of the appendix. No acute upper abdominal process. This exam was performed according to our departmental dose-optimization program, which includes automated exposure control, adjustment of the mA and/or kV according to patient size and/or use of iterative reconstruction technique. Total DLP equals 2671.49 mGycm. Electronically signed by: Jan Mcnair MD 12/20/2017 10:33 AM CDT
[2017-12-20] MEDS ORDERED: SODIUM CHLORIDE 0.9% 1000ML 1,000 ML IVS ONE (11:27)
[2017-12-20 13:06] VITALS: BP 111/75; O2SAT 97
== END 2017-12-20 13:05 | disposition home or self-care (01) ==
LOC: ER 08:21
DX: N20.1 Calculus of ureter (principal); R11.2 Nausea with vomiting, unspecified; J45.909 Unspecified asthma, uncomplicated
CPT/HCPCS: 36415; 74177; 80053; 81001; 83690; 85025; J1170; J2405; J7030

== ENCOUNTER 2018-01-08 03:51 | Emergency (ER) | payer OTHER ==
--- NOTE | 2018-01-08 05:12 | ED.PDOC ---
History of Present Illness - General Chief Complaint: General Stated Complaint: left sided weakness and CP since noon,SOB x's2 day Time Seen by Provider: 01/08/18 04:07 Source: patient, EMS Exam Limitations: no limitations - History of Present Illness Initial Comments: She reports waking up at 0400 with left sided weakness. Last known normal was 2320 when she fell asleep. However, she gives conflicting details about the same symptoms yesterday that were sometimes on the right & sometimes on the left with each lasting 2-3 minutes. Timing/Duration: unknown, episodic Severity: severe Improving Factors: nothing Worsening Factors: nothing Associated Symptoms: paresthesia, weakness Allergies/Adverse Reactions: Allergies Aspirin Allergy (Verified 01/08/18 04:23) Ibuprofen Allergy (Verified 01/08/18 04:23) Ketorolac Tromethamine [From Toradol] Allergy (Verified 01/08/18 04:23) Levofloxacin [From Levaquin] Allergy (Verified 01/08/18 04:23) Phenytoin [From Dilantin] Allergy (Verified 01/08/18 04:23) Tramadol Allergy (Verified 01/08/18 04:23) Vancomycin Allergy (Verified 01/08/18 04:23) Home Medications: Ambulatory Orders Diazepam [Valium] 10 mg PO BID 01/08/18 Melatonin 10 mg PO BEDTIME 01/08/18 carBAMazepine [TEGretol] 200 mg PO TID 01/08/18 Review of Systems - Review of Systems Constitutional: States: no symptoms reported EENTM: States: no symptoms reported Respiratory: States: short of breath - for at least 2 days Cardiology: States: chest pain - atypical; worse with deep breathing; present for at least 16 hours. Gastrointestinal/Abdominal: States: no symptoms reported Genitourinary: States: no symptoms reported Musculoskeletal: States: no symptoms reported Skin: States: no symptoms reported Neurological: States: see HPI Endocrine: States: no symptoms reported Hematologic/Lymphatic: States: no symptoms reported Past Medical History (General) - Patient Medical History Hx Seizures: Yes Hx Stroke: No Hx Dementia: No Hx Asthma: Yes Hx of COPD: No Hx Cardiac Disorders: No Hx Congestive Heart Failure: No Hx Pacemaker: No Hx Hypertension: No Hx Thyroid Disease: No Hx Diabetes: No Hx Gastroesophageal Reflux: No Hx Renal Disease: No Hx Cancer: No Hx of HIV: No Hx Hepatitis C: No Hx MRSA: No Surgical History: cholecystectomy, Hysterectomy - Vaccination History Hx Tetanus, Diphtheria Vaccination: Yes - 2 years ago Hx Influenza Vaccination: No Hx Pneumococcal Vaccination: No - Social History Hx Tobacco Use: No Hx Alcohol Use: No Hx Substance Use: No Hx Substance Use Treatment: No Hx Depression: No Hx Physical Abuse: No Hx Emotional Abuse: No Family Medical History - Family History Mother Family History: Unknown Hx Family Asthma: Yes - child Hx Family Cancer: Yes - breast-sister Physical Exam - Physical Exam General Appearance: Alert, Comfortable, No apparent distress Eye Exam: bilateral normal ENT Exam: normal ENT inspection Neck: non-tender, full range of motion, supple, normal inspection Respiratory: lungs clear, normal breath sounds, no respiratory distress, no accessory muscle use Cardiovascular/Chest: regular rate, rhythm, no edema, no gallop, no JVD, no murmur Gastrointestinal/Abdominal: non tender, soft, no organomegaly Extremities Exam: non-tender, no evidence of injury, no edema Mental Status: alert, oriented x 3 rn complex care Exam: normal hearing, normal speech, PERRL, other - won't fully cooperate with testing for facial weakness Coordination/Gait: ABN nose to finger (L) - limping gait Motor/Sensory: sensory deficit, weak motor strength LUE, weak motor strength LLE Skin Exam: normal color Progress - Progress Progress: 01/08/18 05:[address] Staff reports she was able to get into a W/C, get on the CT gurney & stand for a CXR. I watched her get out of the W/C with some difficulty & she was holding her arm with elbow flexion of approximately 45 degrees. 01/08/18 05:32 Says she is feeling somewhat better. She can move her fingers & her left leg is crossed over her right. She says she still has dyspnea & CP. 01/08/18 06:27 Using her left arm to hold the phone when distracted. Wants to be transferred to [place]. 01/08/18 06:51 HEART score = 2 01/08/18 06:52 Allergic to ASA with anaphylaxis. I do not feel her CP is consistent with an ACS. - Results/Orders Results/Orders: Tr < 0.02 d-dimer 0.91 Hgb 13 - EKG/XRAY/CT EKG: Sinus, Tachy - HR 103; LAD; nml intervals; RBBB; nml ST-T, RBBB, no ST T wave changes XRAY: chest - WNL CT: head & CTA chest: WNL - Consult/PCP Time Called: 06:46 Consult/PCP: Dr. Barraza Consult Reason/Comments: accepted in transfer Stroke Information - Onset of Symptoms Symptoms of Stroke: Numbness, Left Hemiparesis Stroke Onset of Symptoms Date: 01/07/18 Stroke Onset of Symptoms Time: 23:20 - Contraindications Antithrombotic Contraindication: Treatment not indicated, Drug Allergy t-PA Contraindication: Drug Tx Not Indicated Departure - Departure Clinical Impression: TIA (transient ischemic attack) Chest pain Qualifiers: Chest pain type: unspecified Qualified Code(s): R07.9 - Chest pain, unspecified Time of Disposition: 06:47 Disposition: Transfer to Hospital Condition: Fair Home Medications: Ambulatory Orders Diazepam [Valium] 10 mg PO BID 01/08/18 Melatonin 10 mg PO BEDTIME 01/08/18 carBAMazepine [TEGretol] 200 mg PO TID 01/08/18
--- NOTE | 2018-01-08 05:14 | CT ---
EXAM: Single view chest. INDICATION: Dyspnea. COMPARISON: Chest x-ray: None. FINDINGS: Cardiac silhouette: Unremarkable. Reyna: Unremarkable. Lobar consolidation: None. Pleural effusion: None. Pneumothorax: None. Other: None. Bones: Unremarkable. Other: None. IMPRESSION: 1. No acute cardiopulmonary process. EXAM: CT head without contrast. INDICATION: Headache. TECHNIQUE: Contiguous axial CT images of the brain. Intravenous contrast: Absent. DLP 859 mGy-cm. This exam was performed according to our departmental dose-optimization program, which includes automated exposure control, adjustment of the mA and/or kV according to patient size and/or use of iterative reconstruction technique. COMPARISON: 12/14/2017. FINDINGS: Subcutaneous: Unremarkable. No acute intracranial hemorrhage. No midline shift. No mass effect. Ventricles: No hydrocephalus. Domínguez-white differentiation preserved. Paranasal sinuses/mastoid air cells: Visualized portions are aerated. Bones/orbits: Visualized portions are unremarkable. IMPRESSION: 1. No CT evidence of acute intracranial hemorrhage. Electronically signed by: Twin Pacheco MD 01/08/2018 5:11 AM CDT Workstation: [id number]
[2018-01-08] MEDS ORDERED: MORPHINE SULFATE INJ 10 MG/ML VIAL IV ONE (05:33)
[2018-01-08] MEDS ORDERED: ONDANSETRON INJ 4 MG/2 ML VIAL IV ONE (05:33)
[2018-01-08] MEDS ORDERED: SODIUM CHLORIDE 0.9% 1000ML 250 ML IVS ONE (05:35)
--- NOTE | 2018-01-08 06:16 | CT ---
EXAM: CT chest angiogram with contrast. INDICATION: Chest pain. TECHNIQUE: Contiguous axial CT images of the chest. Intravenous contrast: Present. Protocol: Pulmonary embolus (PE) protocol angiogram. Reformats: MIPs and MPRs created and utilized. DLP 610 mGy-cm. This exam was performed according to our departmental dose-optimization program, which includes automated exposure control, adjustment of the mA and/or kV according to patient size and/or use of iterative reconstruction technique. Note: LV=left ventricle. RV=right ventricle. COMPARISON: None. FINDINGS: Upper abdomen: Partially imaged. Cholecystectomy Thoracic aorta: Unremarkable. Heart: No right atrial thrombus. RV/LV ratio: Within normal limits. Pulmonary arteries: Technical: Adequate opacification to the level of the segmental vessels. Pulmonary embolus: No low-density filling defect to suggest acute PE. Overall embolic burden: None. Mediastinum: No pathologic sized middle mediastinal lymphadenopathy. Tracheobronchial tree: Unremarkable. Lungs: Lobar consolidation: Negative. Pleural effusion: Negative. Pneumothorax: Negative. Other: Negative. Bones: Unremarkable. IMPRESSION: 1. No CT evidence of acute PE. Electronically signed by: Twin Pacheco MD 01/08/2018 6:14 AM CDT Workstation: [id number]
[2018-01-08] MEDS ORDERED: ACETAMINOPHEN 325 MG TAB PO ONE (07:48)
[2018-01-08 08:04] VITALS: TEMP 99.7; O2SAT 97
[2018-01-08 09:57] VITALS: BP 135/88
== END 2018-01-08 08:40 | disposition short-term general hospital (02) ==
LOC: ER 03:51
DX: G45.9 Transient cerebral ischemic attack, unspecified (principal); R07.9 Chest pain, unspecified; R56.9 Unspecified convulsions; J45.909 Unspecified asthma, uncomplicated; Z79.899 Other long term (current) drug therapy; Z88.6 Allergy status to analgesic agent; Z88.8 Allergy status to other drugs, medicaments and biological substances; Z88.1 Allergy status to other antibiotic agents
CPT/HCPCS: 70450; 71045; 71275; 80048; 82550; 82553; 84484; 85025; 85379; 85610; 85730; 93005; J2270; J2405; J7030

== ENCOUNTER 2018-01-16 16:17 | Emergency (ER) | payer OTHER ==
[2018-01-16] MEDS ORDERED: SODIUM CHLORIDE 0.9% (FLUSH) 10 ML SYG IV PRN (16:33)
--- NOTE | 2018-01-16 16:36 | ED.PDOC ---
History of Present Illness - General Chief Complaint: Chest Pain/PR Stated Complaint: chest pain Time Seen by Provider: 01/16/18 16:30 Source: patient Exam Limitations: no limitations - History of Present Illness Initial Comments: Betsey Rowan 32 y/o female stated that while watcing TV had onset of non radiating sharp CP w/some sob which had been constant then called up EMS.Had same symptoms 10 stated was transferred to [facility] since her d-dimer was abnormal and venous leg doppler was negative then sent home.CTA- chest done a wk ago negative for PE.Stated had thyroid test done was normal. Severity: moderate Location: central Activities at Onset: rest Prior Chest Pain/Cardiac Workup: other - see hpi Improving Factors: nothing Worsening Factors: nothing Nitro Today/Relief: 0.4 mg x 1, no relief Aspirin Treatment Today: no aspirin today - allergies Allergies/Adverse Reactions: Allergies Aspirin Allergy (Verified 01/08/18 04:23) Ibuprofen Allergy (Verified 01/08/18 04:23) Ketorolac Tromethamine [From Toradol] Allergy (Verified 01/08/18 04:23) Levofloxacin [From Levaquin] Allergy (Verified 01/08/18 04:23) Phenytoin [From Dilantin] Allergy (Verified 01/08/18 04:23) Tramadol Allergy (Verified 01/08/18 04:23) Vancomycin Allergy (Verified 01/08/18 04:23) Home Medications: Ambulatory Orders Diazepam [Valium] 10 mg PO BID 01/08/18 Melatonin 10 mg PO BEDTIME 01/08/18 carBAMazepine [TEGretol] 200 mg PO TID 01/08/18 Pantoprazole Sodium [Protonix] 20 mg PO ACBK #60 tablet 01/16/18 Review of Systems - Review of Systems Constitutional: States: no symptoms reported EENTM: States: no symptoms reported Respiratory: States: no symptoms reported Cardiology: States: see HPI Gastrointestinal/Abdominal: States: no symptoms reported Genitourinary: States: no symptoms reported Musculoskeletal: States: no symptoms reported Skin: States: no symptoms reported Neurological: States: no symptoms reported Past Medical History (General) - Patient Medical History Hx Seizures: Yes Hx Stroke: No Hx Dementia: No Hx Asthma: Yes Hx of COPD: No Hx Cardiac Disorders: No Hx Congestive Heart Failure: No Hx Pacemaker: No Hx Hypertension: No Hx Thyroid Disease: No Hx Diabetes: No Hx Gastroesophageal Reflux: No Hx Renal Disease: No Hx Cancer: No Hx of HIV: No Hx Hepatitis C: No Hx MRSA: No Surgical History: other - hysterectomy,BTL - Vaccination History Hx Tetanus, Diphtheria Vaccination: Yes - 2 years ago Hx Influenza Vaccination: No Hx Pneumococcal Vaccination: No - Social History Hx Tobacco Use: No Hx Alcohol Use: No Hx Substance Use: No Hx Substance Use Treatment: No Hx Depression: No Hx Physical Abuse: No Hx Emotional Abuse: No Family Medical History - Family History Mother Family History: Unknown Hx Family Asthma: Yes - child Hx Family Cancer: Yes - breast-sister Physical Exam - Physical Exam General Appearance: Alert, Comfortable, No apparent distress Eyes, Ears, Nose, Throat Exam: normal ENT inspection Neck: non-tender, full range of motion, normal inspection Respiratory: chest non-tender, lungs clear, normal breath sounds Cardiovascular/Chest: normal peripheral pulses, regular rate, rhythm, tachycardia - hr-120 Peripheral Pulses: radial,right: 2+, radial,left: 2+ Gastrointestinal/Abdominal: normal bowel sounds, non tender, soft, no organomegaly Extremity: normal range of motion, non-tender, no pedal edema, no calf tenderness Neurologic: alert, normal mood/affect, oriented x 3 Progress - Progress Progress: 01/16/18 16:59 Vital Signs - 8 hr 01/16/18 16:18 Temperature 98.8 F Pulse Rate [ 117 H Apical] Respiratory 18 Rate Blood Pressure 121/70 [Left Arm] O2 Sat by Pulse 98 Oximetry - Results/Orders Results/Orders: 01/16/18 16:33 Sodium Chloride 0.9% (Flush) [Saline Flush Syringe] 10 ml IV PRN PRN 01/16/18 16:34 IV Care:Saline Lock per Protoc QSHIFT Telemetry .ONCE EKG Stat Pulse Ox Stat Laboratory Results - last 24 hr 01/16/18 01/16/18 01/16/18 16:35 16:35 16:35 WBC 7.3 RBC 4.74 Hgb 13.0 Hct 39.6 MCV 83.6 MCH 27.5 MCHC 32.9 L RDW 13.3 Plt Count 310 MPV 7.9 Absolute Neuts (auto) 4.00 Absolute Lymphs (auto) 2.50 Absolute Monos (auto) 0.50 Absolute Eos (auto) 0.20 Absolute Basos (auto) 0.00 Neutrophils % 55.6 Lymphocytes % 34.4 Monocytes % 7.4 Eosinophils % 2.1 Basophils % 0.5 PT 9.3 INR 0.93 PTT (SP) 22.9 D-Dimer, Quantitative 1.28 H* Sodium 143 Potassium 3.4 L Chloride 109 Carbon Dioxide 26 Anion Gap 11.4 L BUN 13 Creatinine 0.49 L BUN/Creatinine Ratio 26.5 H Random Glucose 110 H Serum Osmolality 285.7 Calcium 9.0 Magnesium 2.0 Total Bilirubin 0.3 Direct Bilirubin < 0.1 Indirect Bilirubin 0.2 AST 21 ALT 20 Alkaline Phosphatase 104 Creatine Kinase 61 CK-MB (CK-2) 0.9 CK-MB (CK-2) % Not Reportable Troponin I < 0.02 B-Natriuretic Peptide < 5.0 Serum Total Protein 6.6 Albumin 3.1 L Urine Color Urine Appearance Urine pH Ur Specific [place] Urine Protein Urine Glucose (UA) Urine Ketones Urine Blood Urine Nitrite Urine Bilirubin Urine Urobilinogen Ur Leukocyte Esterase Urine RBC Urine WBC Ur Epithelial Cells Amorphous Sediment Urine Bacteria Urine Opiates Screen Urine Barbiturates Ur Phencyclidine Scrn U Amphetamin/Meth Scrn U Benzodiazepines Scrn U Cocaine Metab Screen U Cannabinoids Screen 01/16/18 01/16/18 01/16/18 18:27 18:27 19:37 WBC RBC Hgb Hct MCV MCH MCHC RDW Plt Count MPV Absolute Neuts (auto) Absolute Lymphs (auto) Absolute Monos (auto) Absolute Eos (auto) Absolute Basos (auto) Neutrophils % Lymphocytes % Monocytes % Eosinophils % Basophils % PT INR PTT (SP) D-Dimer, Quantitative Sodium Potassium Chloride Carbon Dioxide Anion Gap BUN Creatinine BUN/Creatinine Ratio Random Glucose Serum Osmolality Calcium Magnesium Total Bilirubin Direct Bilirubin Indirect Bilirubin AST ALT Alkaline Phosphatase Creatine Kinase CK-MB (CK-2) CK-MB (CK-2) % Troponin I < 0.02 B-Natriuretic Peptide Serum Total Protein Albumin Urine Color Yellow Urine Appearance Clear Urine pH 5.5 Ur Specific [place] 1.025 Urine Protein Negative Urine Glucose (UA) Negative Urine Ketones Trace Urine Blood Negative Urine Nitrite Negative Urine Bilirubin Negative Urine Urobilinogen 0.2 Ur Leukocyte Esterase Negative Urine RBC 0-1 Urine WBC 0-1 Ur Epithelial Cells 0 Amorphous Sediment 2+ Urine Bacteria 1+ Urine Opiates Screen Negative Urine Barbiturates Negative Ur Phencyclidine Scrn Negative U Amphetamin/Meth Scrn Negative U Benzodiazepines Scrn Negative U Cocaine Metab Screen Negative U Cannabinoids Screen Negative - EKG/XRAY/CT EKG: Sinus, Tachy, no ST T wave changes XRAY: chest - no acute abnormalities CT: previous chest ct last week no PE CT Ordered: Yes - CTA chest no pulmonary embolus or other abnormalities -second chest ct Departure - Departure Clinical Impression: Sinus tachycardia, D-dimer, elevated Chest pain Qualifiers: Chest pain type: unspecified Qualified Code(s): R07.9 - Chest pain, unspecified Time of Disposition: 21:11 Disposition: Discharge to Home or Self Care Condition: Fair Departure Forms: ED Discharge - Pt. Copy, Patient Portal Self Enrollment Instructions: DI for Chest Pain, Tachycardia (DC) Referrals: TY BARRAZA [Primary Care Provider] - 1-2 Weeks Prescriptions: Pantoprazole Sodium [Protonix] 20 mg PO ACBK #60 tablet Home Medications: Ambulatory Orders Diazepam [Valium] 10 mg PO BID 01/08/18 Melatonin 10 mg PO BEDTIME 01/08/18 carBAMazepine [TEGretol] 200 mg PO TID 01/08/18 Pantoprazole Sodium [Protonix] 20 mg PO ACBK #60 tablet 01/16/18 Additional Instructions: Return to ER if symptoms worsen;continue with current medications;Avoid caffeine caffeine drinks;Keep appointment with your primary Md 19 January 2018
[2018-01-16 16:42] VITALS: TEMP 98.8
[2018-01-16] MEDS: ONDANSETRON INJ 4 MG/2 ML VIAL IV ONE (16:52)
[2018-01-16] MEDS: CLOPIDOGREL 75 MG TAB PO ONE (16:52)
[2018-01-16] MEDS: LACTATED RINGERS 1,000 ML IVS ONE (16:52)
[2018-01-16] MEDS: NITROGLYCERIN 0.4 MG 25 EA TAB SL ONE (16:52)
--- NOTE | 2018-01-16 16:54 | RAD ---
PROCEDURE: XR CHEST 1 VIEW HISTORY: pain COMPARISON: 01/08/2018 TECHNIQUE: Single projection of the chest was done. FINDINGS: The lung santos are well inflated . There are no discrete airspace infiltrates, pneumothoraces or pleural effusions. The pulmonary vascularity is normal. The cardiomediastinal silhouette is stable. IMPRESSION: There is no acute pleural-parenchymal process seen in the imaged lung santos. Location of Interpretation: Teleradiology Electronically signed by: Celso Giron MD 01/16/2018 4:53 PM CDT Workstation: [id number]
[2018-01-16] MEDS: HYDROcodone 10MG/APAP 325MG 1 EA TAB PO ONE (18:04)
--- NOTE | 2018-01-16 20:18 | CT ---
EXAM DESCRIPTION: CTA Chest CLINICAL HISTORY: 32 years, Female, tachycardia,elevated d dimer,chest pains COMPARISON: None. TECHNIQUE: Axial images through the chest were performed after the administration of intravenous contrast using a pulmonary embolus protocol. MIPS were performed. This exam was performed according to our departmental dose-optimization program which includes use of Automated Exposure Control, adjustment of the mA and/or kV according to patient size and/or use of iterative reconstruction technique. FINDINGS: No pulmonary embolus is identified. Normal caliber aorta without dissection. No pericardial effusion. No pleural effusion. Patchy areas of air trapping in both lower lobes may related to small airway or small vessel disease. No confluent pulmonary opacities. No pneumothorax. Patent central airway. Soft tissues are unremarkable. No acute osseous findings. No acute abnormality within the visualized upper abdomen. Patient has had a cholecystectomy. Diffuse fatty infiltration of the liver. IMPRESSION: No pulmonary embolus. Electronically signed by: Roque Chavez DO 01/16/2018 8:16 PM CDT
[2018-01-16] MEDS ORDERED: SODIUM CHLORIDE 0.9% 100ML 100 ML IVPB ONE (22:03)
[2018-01-16] MEDS ORDERED: PANTOPRAZOLE SODIUM IV 40 MG VIAL ONE (22:03)
[2018-01-16] MEDS: PANTOPRAZOLE INJECTION 80 MG in SODIUM CHLORIDE 0.9% 100ML 80 ML IVPB ONE (22:08)
[2018-01-16] MEDS: HYDROCOD/APAP 5/325 (ER DISP) #3 TAB PO ONE (22:09)
[2018-01-16] MEDS: HYDROCOD/APAP 10/325 (ER DISP) # 3 tablets PO ONE (22:10)
[2018-01-16 22:32] VITALS: O2SAT 95
[2018-01-16 22:33] VITALS: BP 108/68
== END 2018-01-16 22:33 | disposition home or self-care (01) ==
LOC: ER 16:17
DX: R07.9 Chest pain, unspecified (principal); R00.0 Tachycardia, unspecified; R79.89 Other specified abnormal findings of blood chemistry; J45.909 Unspecified asthma, uncomplicated; R56.9 Unspecified convulsions; Z79.899 Other long term (current) drug therapy; Z88.6 Allergy status to analgesic agent; Z88.8 Allergy status to other drugs, medicaments and biological substances
CPT/HCPCS: 36415; 71045; 71275; 80048; 80076; 80307; 81001; 82550; 82553; 83880; 84484; 85025; 85379; 85610; 85730; 93005; J2405; J7050; J7120

== ENCOUNTER 2018-02-03 18:49 | Emergency (ER) | payer OTHER ==
--- NOTE | 2018-02-03 20:01 | ED.PDOC ---
History of Present Illness - General Chief Complaint: Back Pain or Injury Stated Complaint: mid low back pain Time Seen by Provider: 02/03/18 19:36 Source: patient Exam Limitations: no limitations - History of Present Illness Initial Comments: Betsey Rowan 32 y/o female brought by EMS with worsening sharp low back pain radiating to back of her left leg.Denies recent or remote back injuries but stated had scoliosis which was cuasing her the on and off back pains for the last 7 years.No bowel or bladder dysfunction,no weakness,no numbness,fever, weight loss. Has scheduled appointment with her Md 08 February 2018 Timing/Duration: days - 2 Quality/Severity: sharpness Back Pain Location: lumbar spine Back Pain Radiation: lower legs - left side Method of Injury/Prior Injury: other - see hpi Improving Factors: rest Worsening Factors: movement Allergies/Adverse Reactions: Allergies Aspirin Allergy (Verified 01/08/18 04:23) Ibuprofen Allergy (Verified 01/08/18 04:23) Ketorolac Tromethamine [From Toradol] Allergy (Verified 01/08/18 04:23) Levofloxacin [From Levaquin] Allergy (Verified 01/08/18 04:23) Phenytoin [From Dilantin] Allergy (Verified 01/08/18 04:23) Tramadol Allergy (Verified 01/08/18 04:23) Vancomycin Allergy (Verified 01/08/18 04:23) Home Medications: Ambulatory Orders Diazepam [Valium] 10 mg PO BID 01/08/18 Melatonin 10 mg PO BEDTIME 01/08/18 carBAMazepine [TEGretol] 200 mg PO TID 01/08/18 Pantoprazole Sodium [Protonix] 20 mg PO ACBK #60 tablet 01/16/18 Acetaminophen W/ Codeine [Tylenol w/Codeine 300-30 mg] 1 tab PO TID PRN #3 tab 02/03/18 Baclofen 20 mg PO BID #20 tab 02/03/18 predniSONE 20 mg PO DAILY #7 tab 02/03/18 Review of Systems - Review of Systems Constitutional: States: no symptoms reported EENTM: States: no symptoms reported Respiratory: States: no symptoms reported Cardiology: States: no symptoms reported Gastrointestinal/Abdominal: States: no symptoms reported Genitourinary: States: no symptoms reported Musculoskeletal: States: see HPI Skin: States: no symptoms reported Neurological: States: no symptoms reported Endocrine: States: no symptoms reported Past Medical History (General) - Patient Medical History Hx Seizures: Yes Hx Stroke: No Hx Dementia: No Hx Asthma: Yes Hx of COPD: No Hx Cardiac Disorders: No Hx Congestive Heart Failure: No Hx Pacemaker: No Hx Hypertension: No Hx Thyroid Disease: No Hx Diabetes: No Hx Gastroesophageal Reflux: No Hx Renal Disease: No Hx Cancer: No Hx of HIV: No Hx Hepatitis C: No Hx MRSA: No Surgical History: other - hysterectomy,btl - Vaccination History Hx Tetanus, Diphtheria Vaccination: No Hx Influenza Vaccination: No Hx Pneumococcal Vaccination: No Immunizations Up to Date: No - Social History Hx Tobacco Use: No Hx Chewing Tobacco Use: No Hx Alcohol Use: No Hx Substance Use: No Hx Substance Use Treatment: No Hx Depression: No Hx Physical Abuse: No Hx Emotional Abuse: No Hx Suspected Abuse: No - Activities of Daily Living Hospice Agency (if applicable):: None - Female History Patient : No Family Medical History - Family History Mother Family History: Unknown Hx Family Asthma: Yes - child Hx Family Cancer: Yes - breast-sister Physical Exam - Physical Exam General Appearance: Alert, Comfortable, No apparent distress Eyes, Ears, Nose, Throat Exam: normal ENT inspection Neck Exam: full range of motion, normal inspection Cardiovascular/Respiratory: regular rate, rhythm, no M/R/G, normal peripheral pulses Peripheral Pulses: radial,right: 2+, radial,left: 2+ Gastrointestinal/Abdominal: normal bowel sounds, non tender, soft, no organomegaly Back Exam: no CVA tenderness, no vertebral tenderness Extremity Exam: no evidence of injury, normal range of motion, non-tender, no pedal edema Neurologic: no motor/sensory deficits, alert, oriented x 3, other - DTR-knee jerk 2 + bilaterally;negative straight leg raising test Skin Exam: normal color, warm/dry Progress - Progress Progress: 02/03/18 20:07 Vital Signs - 8 hr 02/03/18 19:16 Temperature 98.1 F Pulse Rate [ 85 left] Respiratory 20 Rate Blood Pressure 110/54 [left] O2 Sat by Pulse 98 Oximetry - EKG/XRAY/CT XRAY: lumbar spine -no acute findings Departure - Departure Clinical Impression: Lumbar pain with radiation down left leg Time of Disposition: 20:51 Disposition: Discharge to Home or Self Care Departure Forms: ED Discharge - Pt. Copy, Patient Portal Self Enrollment Instructions: DI for Low Back Pain, DI for Back Pain With Sciatica Referrals: TY BARRAZA [Primary Care Provider] - 1-2 Weeks Prescriptions: Acetaminophen W/ Codeine [Tylenol w/Codeine 300-30 mg] 1 tab PO TID PRN #3 tab PRN Reason: Pain Baclofen 20 mg PO BID #20 tab predniSONE 20 mg PO DAILY #7 tab Home Medications: Ambulatory Orders Diazepam [Valium] 10 mg PO BID 01/08/18 Melatonin 10 mg PO BEDTIME 01/08/18 carBAMazepine [TEGretol] 200 mg PO TID 01/08/18 Pantoprazole Sodium [Protonix] 20 mg PO ACBK #60 tablet 01/16/18 Acetaminophen W/ Codeine [Tylenol w/Codeine 300-30 mg] 1 tab PO TID PRN #3 tab 02/03/18 Baclofen 20 mg PO BID #20 tab 02/03/18 predniSONE 20 mg PO DAILY #7 tab 02/03/18 Additional Instructions: Keep appointment with 08 Feb 2018
[2018-02-03] MEDS ORDERED: HYDROcodone 10MG/APAP 325MG 1 EA TAB PO ONE (20:05)
[2018-02-03] MEDS ORDERED: ORPHENADRINE CITRATE 30 MG/ML AMP IM ONE (20:05)
[2018-02-03] MEDS ORDERED: DEXAMETHASONE INJ 10 MG/ML VIAL IM ONE (20:05)
--- NOTE | 2018-02-03 20:44 | RAD ---
EXAM DESCRIPTION: Lumbar Spine 3 Views CLINICAL HISTORY: 32 years Female, back pain COMPARISON: Lumbar spine radiographs December 11, 2017. FINDINGS: Lumbar vertebral bodies demonstrate normal heights. No obvious acute fracture. No subluxation. Disc spaces are maintained. Minimal levocurvature is again noted. Surrounding soft tissues are unremarkable. Visualized bowel gas pattern appears nonobstructive. IMPRESSION: No acute findings. Electronically signed by: Blas Ward MD 02/03/2018 8:43 PM CHOIR TEACHER
[2018-02-03] MEDS ORDERED: HYDROCOD/APAP 7.5/325 (ER DISP) #3 TAB PO ONE (20:55)
[2018-02-03 21:17] VITALS: BP 118/73; TEMP 98.4; O2SAT 96
== END 2018-02-03 21:16 | disposition home or self-care (01) ==
LOC: ER 18:49
DX: M54.42 Lumbago with sciatica, left side (principal); J45.909 Unspecified asthma, uncomplicated; R56.9 Unspecified convulsions; Z79.899 Other long term (current) drug therapy; Z88.8 Allergy status to other drugs, medicaments and biological substances; Z88.6 Allergy status to analgesic agent; Z88.1 Allergy status to other antibiotic agents
CPT/HCPCS: 72100; J1100; J2360

== ENCOUNTER → 2018-02-08 | Outpatient (CLI) | payer OTHER ==
--- NOTE | 2018-02-10 07:26 | RAD ---
EXAM: Scoliosis Series CLINICAL HISTORY: M41.34 COMPARISON STUDY: None TECHNICAL: AP and lateral images of the thoracic and lumbar spine FINDINGS: There is a scoliotic curvature of the lower thoracic spine is convex to the right. The apex of the curvature is at T9-10. The curvature measures 30 degrees. There is a accompanying curvature of the lumbar spine convex to the left. The curvature is centered at L3-4 and measures 20 degrees there is no identifiable osseous abnormality. Cholecystectomy clips are present. The visible chest and abdomen are without acute abnormality. IMPRESSION: 30 degrees dextroscoliosis of the lower thoracic spine and 20 degree levoscoliosis of the lumbar spine. Electronically signed by: Ronald Hough MD 02/10/2018 7:25 AM MATERIALS AND PROCESSES MANAGER
== END ==
LOC: RAD 16:17
PROVIDERS: ATTEND Nurse Practitioner Family
DX: M41.34 Thoracogenic scoliosis, thoracic region (principal); M41.86 Other forms of scoliosis, lumbar region

== ENCOUNTER 2018-04-02 17:26 | Emergency (ER) | payer OTHER ==
[2018-04-02] MEDS ORDERED: methylPREDNISolone SODIUM SUC 125 MG/2 ML VIAL IM ONE (17:54)
[2018-04-02] MEDS ORDERED: IPRATROPIUM/ALBUTEROL 3 ML VIAL NEB ONE (17:54)
[2018-04-02] MEDS ORDERED: ACETAMINOPHEN 325 MG TAB PO ONE (17:58)
--- NOTE | 2018-04-02 17:58 | ED.PDOC ---
History of Present Illness - General Chief Complaint: General Stated Complaint: Flu-like sx's Time Seen by Provider: 04/02/18 17:36 Source: patient Exam Limitations: no limitations - History of Present Illness Initial Comments: Patient presents with URI for one week. She has been coughing up green sputum for a week and has had a sore throat as well. She has asthma and says that she uses her MDI a "few times" per week. She said she had a fever of 102 earlier today. + green nasal exudates. No N/V/D. Multiple sick contacts. No other complaints. Timing/Duration: 1 week Severity: moderate Improving Factors: nothing Worsening Factors: nothing Associated Symptoms: cough, fever/chills, other - see HPI Allergies/Adverse Reactions: Allergies Aspirin Allergy (Verified 01/08/18 04:23) Ibuprofen Allergy (Verified 01/08/18 04:23) Ketorolac Tromethamine [From Toradol] Allergy (Verified 01/08/18 04:23) Levofloxacin [From Levaquin] Allergy (Verified 01/08/18 04:23) Phenytoin [From Dilantin] Allergy (Verified 01/08/18 04:23) Tramadol Allergy (Verified 01/08/18 04:23) Vancomycin Allergy (Verified 01/08/18 04:23) Home Medications: Ambulatory Orders Melatonin 10 mg PO BEDTIME 01/08/18 carBAMazepine [TEGretol] 300 mg PO TID 01/08/18 Pantoprazole Sodium [Protonix] 20 mg PO ACBK #60 tablet 01/16/18 Azithromycin 250 mg PO DAILY #4 tab 04/02/18 Buspirone HCl 15 mg PO BID 04/02/18 HYDROcodone 5MG/APAP 325MG [[place] 5/325] 1 tab PO Q4H PRN 04/02/18 Prednisone [Deltasone] 20 mg PO DAILY #4 tab 04/02/18 Review of Systems - Review of Systems Constitutional: States: see HPI EENTM: States: see HPI Respiratory: States: see HPI Cardiology: States: no symptoms reported Gastrointestinal/Abdominal: States: no symptoms reported Genitourinary: States: no symptoms reported Musculoskeletal: States: no symptoms reported Skin: States: no symptoms reported Neurological: States: no symptoms reported Endocrine: States: no symptoms reported Hematologic/Lymphatic: States: no symptoms reported Past Medical History (General) - Patient Medical History Hx Seizures: Yes Hx Stroke: No Hx Dementia: No Hx Asthma: Yes Hx of COPD: No Hx Cardiac Disorders: No Hx Congestive Heart Failure: No Hx Pacemaker: No Hx Hypertension: No Hx Thyroid Disease: No Hx Diabetes: No Hx Gastroesophageal Reflux: No Hx Renal Disease: No Hx Cancer: No Hx of HIV: No Hx Hepatitis C: No Hx MRSA: No Surgical History: Hysterectomy, other - Vaccination History Hx Tetanus, Diphtheria Vaccination: Yes Hx Influenza Vaccination: No Hx Pneumococcal Vaccination: No - Social History Hx Tobacco Use: No Hx Chewing Tobacco Use: No Hx Alcohol Use: Yes - Social Hx Substance Use: No Hx Substance Use Treatment: No Hx Depression: No Hx Physical Abuse: No Hx Emotional Abuse: No Hx Suspected Abuse: No - Female History Patient is a Female of Child Bearing Age (10 -59 yrs old): No Patient : No Family Medical History - Family History Mother Family History: Unknown Hx Family Asthma: Yes - child Hx Family Cancer: Yes - breast-sister Physical Exam - Physical Exam General Appearance: Alert Eye Exam: bilateral normal Ears, Nose, Throat: normal ENT inspection Neck: non-tender, full range of motion, supple Respiratory: lungs clear, normal breath sounds Cardiovascular/Chest: normal peripheral pulses, regular rate, rhythm Gastrointestinal/Abdominal: normal bowel sounds, non tender, soft Skin Exam: normal color Lymphatic: no adenopathy Progress - Progress Progress: 04/02/18 18:55 Laboratory Tests 04/02/18 04/02/18 04/02/18 17:55 17:55 17:59 WBC 7.3 RBC 4.84 Hgb 13.2 Hct 40.2 MCV 83.1 MCH 27.2 MCHC 32.8 L RDW 13.8 Plt Count 270 MPV 8.0 Absolute Neuts (auto) 4.50 Absolute Lymphs (auto) 1.90 Absolute Monos (auto) 0.60 Absolute Eos (auto) 0.20 Absolute Basos (auto) 0.00 Neutrophils % 61.7 Lymphocytes % 25.9 Monocytes % 8.3 Eosinophils % 3.4 Basophils % 0.7 Sodium 138 Potassium 3.6 Chloride 105 Carbon Dioxide 24 Anion Gap 12.6 BUN 15 Creatinine 0.59 L BUN/Creatinine Ratio 25.4 H Random Glucose 100 Serum Osmolality 276.6 Calcium 8.9 Group A Strep Rapid Negative CXR showed no acute disease. Patient received Solumedrol 125 mg IM x one and Tylenol 650 mg po x one. With her asthma, reported fever, and lengthy illness, she is high risk for pneumonia or other respiratory complications. She was given azithromycin 500 mg po in the E.D. with an RX for 4 days and RX for prednisone for 4 days. Care instructions given. E.R. warnings given. Questions were elicited and answered. Patient voiced understanding and agreement with the plan. Departure - Departure Clinical Impression: Upper respiratory infection, Asthma Disposition: Discharge to Home or Self Care Condition: Good Departure Forms: ED Discharge - Pt. Copy, Patient Portal Self Enrollment Diet: resume usual diet Activity: increase activity as tolerated Referrals: TY BARRAZA [Primary Care Provider] - 1-2 Weeks Prescriptions: Azithromycin 250 mg PO DAILY #4 tab Prednisone [Deltasone] 20 mg PO DAILY #4 tab Home Medications: Ambulatory Orders Melatonin 10 mg PO BEDTIME 01/08/18 carBAMazepine [TEGretol] 300 mg PO TID 01/08/18 Pantoprazole Sodium [Protonix] 20 mg PO ACBK #60 tablet 01/16/18 Azithromycin 250 mg PO DAILY #4 tab 04/02/18 Buspirone HCl 15 mg PO BID 04/02/18 HYDROcodone 5MG/APAP 325MG [[place] 5/325] 1 tab PO Q4H PRN 04/02/18 Prednisone [Deltasone] 20 mg PO DAILY #4 tab 04/02/18 Additional Instructions: Take medications as prescribed. Return to the E.R. if a temperature greater than 100.4 lasts for more than three days for for trouble breathing.
[2018-04-02 18:45] VITALS: O2SAT 99
--- NOTE | 2018-04-02 18:52 | RAD ---
EXAM DESCRIPTION: AP view of the chest CLINICAL HISTORY:32 years Female, cough and dyspnea Comparison: None FINDINGS: No focal lung consolidation. No pleural effusion. No pneumothorax. Cardiac and mediastinal silhouette is unremarkable. No acute osseous abnormality. Soft tissues are unremarkable. IMPRESSION: No acute findings. No focal lung consolidation. Electronically signed by: Roque Chavez DO 04/02/2018 6:51 PM MONITORING AND EVALUATION ADVISOR
[2018-04-02] MEDS ORDERED: AZITHROMYCIN 250 MG TAB PO ONE (18:54)
[2018-04-02 19:04] VITALS: BP 114/70; TEMP 98.7
== END 2018-04-02 19:04 | disposition home or self-care (01) ==
LOC: ER 17:26
DX: J06.9 Acute upper respiratory infection, unspecified (principal); J45.909 Unspecified asthma, uncomplicated; R56.9 Unspecified convulsions; Z79.899 Other long term (current) drug therapy; Z88.6 Allergy status to analgesic agent; Z88.1 Allergy status to other antibiotic agents; Z88.8 Allergy status to other drugs, medicaments and biological substances
CPT/HCPCS: 71046; 80048; 85025; 87070; 87502; 87880; 94640; J2930; J7620; Q0144

== ENCOUNTER 2018-04-12 22:10 | Emergency (ER) | payer OTHER ==
[2018-04-12 22:25] VITALS: TEMP 98.9
[2018-04-12] MEDS ORDERED: ONDANSETRON INJ 4 MG/2 ML VIAL IV ONE (22:45)
[2018-04-12] MEDS ORDERED: SODIUM CHLORIDE 0.9% 1000ML 1,000 ML IVS ONE (22:45)
[2018-04-12] MEDS ORDERED: ONDANSETRON INJ 4 MG/2 ML VIAL ONE (22:46)
[2018-04-12] MEDS ORDERED: SODIUM CHLORIDE 0.9% 1000ML 1,000 ML ONE (22:46)
[2018-04-12] MEDS ORDERED: HYDROcodone 7.5MG/APAP 325MG 1 EA TAB PO ONE (22:52)
--- NOTE | 2018-04-12 22:56 | ED.PDOC ---
History of Present Illness - General Chief Complaint: Abdominal Pain Stated Complaint: abd pain Time Seen by Provider: 04/12/18 22:53 Source: patient, RN notes reviewed, Vital Signs reviewed Additional Information: 32 YEAR OLD WITH HISTORY OF BIPOLAR DISORDER DEPRESSION ANXIETY SEIZURES CHRONIC PAIN PRESENTS WITH COMPLAINTS OF 1 VOMITING AND DIARRHEA AND ABDOMINAL PAIN EMESIS AND DIARRHEA 3-6 TIMES EACH FOR 3 DAYS 2 RAN OUT OF HER HYDROCODONE 3 SHE IS CONCERNED ABOUT CROHNS DISEASE SHE HAS NO BLOOD IN STOOLS NO WEIGHT LOSS - History of Present Illness Timing/Duration: changing over time Severity: moderate Improving Factors: nothing Allergies/Adverse Reactions: Allergies Aspirin Allergy (Verified 04/12/18 22:25) Ibuprofen Allergy (Verified 04/12/18 22:25) Ketorolac Tromethamine [From Toradol] Allergy (Verified 04/12/18 22:25) Levofloxacin [From Levaquin] Allergy (Verified 04/12/18 22:25) Phenytoin [From Dilantin] Allergy (Verified 04/12/18 22:25) Tramadol Allergy (Verified 04/12/18 22:25) Vancomycin Allergy (Verified 04/12/18 22:25) Home Medications: Ambulatory Orders Melatonin 10 mg PO BEDTIME 01/08/18 carBAMazepine [TEGretol] 300 mg PO TID 01/08/18 Pantoprazole Sodium [Protonix] 20 mg PO ACBK #60 tablet 01/16/18 Azithromycin 250 mg PO DAILY #4 tab 04/02/18 Buspirone HCl 15 mg PO BID 04/02/18 HYDROcodone 5MG/APAP 325MG [[place] 5/325] 1 tab PO Q4H PRN 04/02/18 Prednisone [Deltasone] 20 mg PO DAILY #4 tab 04/02/18 Dicyclomine HCl [Bentyl] 20 mg PO Q6HR #30 tab 04/12/18 Promethazine Tab [Phenergan Tablet] 25 mg PO .Q4H #20 tab 04/12/18 Review of Systems - Review of Systems Constitutional: States: no symptoms reported EENTM: States: no symptoms reported Respiratory: States: no symptoms reported Cardiology: States: no symptoms reported Gastrointestinal/Abdominal: States: no symptoms reported Genitourinary: States: no symptoms reported Musculoskeletal: States: no symptoms reported Skin: States: no symptoms reported Neurological: States: no symptoms reported Endocrine: States: no symptoms reported Hematologic/Lymphatic: States: no symptoms reported Past Medical History (General) - Patient Medical History Hx Seizures: Yes Hx Stroke: No Hx Dementia: No Hx Asthma: Yes Hx of COPD: No Hx Cardiac Disorders: No Hx Congestive Heart Failure: No Hx Pacemaker: No Hx Hypertension: No Hx Thyroid Disease: No Hx Diabetes: No Hx Gastroesophageal Reflux: No Hx Renal Disease: No Hx Cancer: No Hx of HIV: No Hx Hepatitis C: No Hx MRSA: No Surgical History: cholecystectomy, Hysterectomy - Vaccination History Hx Tetanus, Diphtheria Vaccination: No Hx Influenza Vaccination: No Hx Pneumococcal Vaccination: No Immunizations Up to Date: No - Social History Hx Tobacco Use: No Hx Chewing Tobacco Use: No Hx Alcohol Use: No Hx Substance Use: No Hx Substance Use Treatment: No Hx Depression: Yes Hx Physical Abuse: No Hx Emotional Abuse: No Hx Suspected Abuse: No - Female History Patient is a Female of Child Bearing Age (10 -59 yrs old): No Patient : No Family Medical History - Family History Mother Family History: Unknown Hx Family Asthma: Yes - child Hx Family Cancer: Yes - breast-sister Physical Exam - Physical Exam General Appearance: Alert, Anxious Eye Exam: bilateral normal Ears, Nose, Throat: hearing grossly normal, normal ENT inspection, normal pharynx Neck: non-tender, full range of motion, supple Respiratory: chest non-tender, lungs clear, normal breath sounds, no respiratory distress, no accessory muscle use Cardiovascular/Chest: normal peripheral pulses, regular rate, rhythm, no edema, no gallop, no JVD, no murmur Gastrointestinal/Abdominal: normal bowel sounds, soft, no organomegaly, no pulsatile mass, tenderness, other - ABDOMEN IS OBESE GENERALISED TENDERNESS IN THE LOWER QUADRANTS NO GUARDING NO REBOUND NO SIGNS OF PERITONITIS Progress - Results/Orders Results/Orders: Laboratory Tests 04/12/18 04/12/18 04/12/18 21:40 21:40 22:46 WBC 8.4 RBC 4.97 Hgb 13.5 Hct 41.3 MCV 83.1 MCH 27.2 MCHC 32.7 L RDW 14.4 Plt Count 309 MPV 8.4 Absolute Neuts (auto) 5.00 Absolute Lymphs (auto) 2.50 Absolute Monos (auto) 0.70 Absolute Eos (auto) 0.20 Absolute Basos (auto) 0.00 Neutrophils % 59.6 Lymphocytes % 29.3 Monocytes % 8.7 Eosinophils % 1.9 Basophils % 0.5 Sodium 142 Potassium 3.7 Chloride 108 Carbon Dioxide 26 Anion Gap 11.7 L BUN 12 Creatinine 0.55 L BUN/Creatinine Ratio 21.8 H Random Glucose 116 H Serum Osmolality 283.9 Calcium 8.9 Total Bilirubin 0.2 AST 22 ALT 21 Alkaline Phosphatase 123 H Serum Total Protein 7.1 Albumin 3.5 Globulin 3.6 H Albumin/Globulin Ratio 1.0 L Urine Color Yellow Urine Appearance Clear Urine pH 5.5 Ur Specific [place] >= 1.030 Urine Protein Negative Urine Glucose (UA) Negative Urine Ketones Negative Urine Blood Negative Urine Nitrite Negative Urine Bilirubin Negative Urine Urobilinogen 0.2 Ur Leukocyte Esterase Negative Urine RBC 0 Urine WBC 0 Ur Epithelial Cells 0 Urine Bacteria 0 23 45 NO EMESIS OR DIARRHEA DURING HER STAY IN THE ED Departure - Departure Clinical Impression: Abdominal pain, Seizure, Acute gastroenteritis Time of Disposition: 23:43 Disposition: Discharge to Home or Self Care Condition: Good Departure Forms: ED Discharge - Pt. Copy, Patient Portal Self Enrollment Instructions: DI for Abdominal Pain-Adult Diet: full liquid diet Activity: increase activity as tolerated Referrals: TY BARRAZA [Primary Care Provider] - 1-2 Weeks Prescriptions: Dicyclomine HCl [Bentyl] 20 mg PO Q6HR #30 tab Promethazine Tab [Phenergan Tablet] 25 mg PO .Q4H #20 tab Home Medications: Ambulatory Orders Melatonin 10 mg PO BEDTIME 01/08/18 carBAMazepine [TEGretol] 300 mg PO TID 01/08/18 Pantoprazole Sodium [Protonix] 20 mg PO ACBK #60 tablet 01/16/18 Azithromycin 250 mg PO DAILY #4 tab 04/02/18 Buspirone HCl 15 mg PO BID 04/02/18 HYDROcodone 5MG/APAP 325MG [[place] 5/325] 1 tab PO Q4H PRN 04/02/18 Prednisone [Deltasone] 20 mg PO DAILY #4 tab 04/02/18 Dicyclomine HCl [Bentyl] 20 mg PO Q6HR #30 tab 04/12/18 Promethazine Tab [Phenergan Tablet] 25 mg PO .Q4H #20 tab 04/12/18 Comments: please follow up with your pcp RETURN IF SYMPTOMS WORSEN
[2018-04-12] MEDS ORDERED: DICYCLOMINE HCL INJ 20 MG/2 ML AMP IM ONE ×2 (23:42→23:45)
[2018-04-12 23:53] VITALS: BP 113/85; O2SAT 99
== END 2018-04-12 23:53 | disposition home or self-care (01) ==
LOC: ER 22:10
DX: K52.9 Noninfective gastroenteritis and colitis, unspecified (principal); R56.9 Unspecified convulsions; F31.9 Bipolar disorder, unspecified; F41.9 Anxiety disorder, unspecified; J45.909 Unspecified asthma, uncomplicated; Z90.49 Acquired absence of other specified parts of digestive tract; Z79.899 Other long term (current) drug therapy; Z88.6 Allergy status to analgesic agent; Z88.8 Allergy status to other drugs, medicaments and biological substances; Z88.1 Allergy status to other antibiotic agents
CPT/HCPCS: 80053; 81001; 85025; J0500; J2405; J7030

== ENCOUNTER 2018-04-30 22:15 | Emergency (ER) | payer OTHER ==
[2018-04-30] MEDS ORDERED: ASPIRIN (CHEWABLE) 81 MG TAB PO ONE (23:00)
--- NOTE | 2018-04-30 23:18 | RAD ---
EXAM: Chest,1 View CLINICAL INDICATION: 32-year-old female with chest pain. TECHNIQUE: Single view, AP portable chest was obtained. COMPARISON: None. FINDINGS: Unremarkable cardiac and mediastinal silhouette. Heart size is normal. Lungs are clear without focal opacity, pneumothorax or pleural effusions. Dextrothoracic curvature of the thoracic spine. The visualized bones are otherwise within normal limits. IMPRESSION: No acute cardiopulmonary abnormalities. Electronically signed by: Missy Guajardo MD 04/30/2018 11:16 PM [facility]
[2018-05-01] MEDS ORDERED: MORPHINE SULFATE INJ 10 MG/ML VIAL IM ONE (00:11)
[2018-05-01] MEDS ORDERED: ORPHENADRINE CITRATE 30 MG/ML AMP IM ONE (00:11)
--- NOTE | 2018-05-01 00:18 | ED.PDOC ---
History of Present Illness - General Chief Complaint: Chest Pain/IL Stated Complaint: chest pain Time Seen by Provider: 04/30/18 22:59 Source: patient Exam Limitations: no limitations - History of Present Illness Initial Comments: Betsey Rowan 32 y/o female stated that she had been having intermittent sharp left sided chest pains for the last one week aggravated by movement;also feels sob occasionally,no diaphoresis,no n/v,no cough,no wheezing.She was sent to [facility] last year for chest pain symptoms but repeat test negative result;she had also CTA-chest w/c did not show pulmonary embolus after showing elevated d- dimer 1.28 at that time.Also has been on medication for GERD stated not helping. Severity: moderate Location: other - left side Activities at Onset: activity Prior Chest Pain/Cardiac Workup: non-cardiac Worsening Factors: nothing Nitro Today/Relief: no nitro taken today Aspirin Treatment Today: 81 mg x 4 Associated Symptoms: other - see hpi Allergies/Adverse Reactions: Allergies Aspirin Allergy (Verified 04/12/18 22:25) Ibuprofen Allergy (Verified 04/12/18 22:25) Ketorolac Tromethamine [From Toradol] Allergy (Verified 04/12/18 22:25) Levofloxacin [From Levaquin] Allergy (Verified 04/12/18 22:25) Phenytoin [From Dilantin] Allergy (Verified 04/12/18 22:25) Tramadol Allergy (Verified 04/12/18 22:25) Vancomycin Allergy (Verified 04/12/18 22:25) Home Medications: Ambulatory Orders Melatonin 10 mg PO BEDTIME 01/08/18 carBAMazepine [TEGretol] 300 mg PO TID 01/08/18 Pantoprazole Sodium [Protonix] 20 mg PO ACBK #60 tablet 01/16/18 Buspirone HCl 15 mg PO BID 04/02/18 HYDROcodone 5MG/APAP 325MG [[place] 5/325] 1 tab PO Q4H PRN 04/02/18 Acetamin W/Cod #3 Tab [Tylenol w/CODEINE #3] 1 ea PO TID PRN #2 tab 05/01/18 Review of Systems - Review of Systems Constitutional: States: no symptoms reported EENTM: States: no symptoms reported Respiratory: States: no symptoms reported Cardiology: States: see HPI Gastrointestinal/Abdominal: States: no symptoms reported Genitourinary: States: no symptoms reported Musculoskeletal: States: no symptoms reported Skin: States: no symptoms reported Neurological: States: no symptoms reported All other Systems: Reviewed and Negative, No Change from Baseline Past Medical History (General) - Patient Medical History Hx Seizures: Yes Hx Stroke: No Hx Dementia: No Hx Asthma: Yes Hx of COPD: No Hx Cardiac Disorders: No Hx Congestive Heart Failure: No Hx Pacemaker: No Hx Hypertension: No Hx Thyroid Disease: No Hx Diabetes: No Hx Gastroesophageal Reflux: No Hx Renal Disease: No Hx Cancer: No Hx of HIV: No Hx Hepatitis C: No Hx MRSA: No Surgical History: cholecystectomy, Hysterectomy - Vaccination History Hx Tetanus, Diphtheria Vaccination: No Hx Influenza Vaccination: No Hx Pneumococcal Vaccination: No - Social History Hx Tobacco Use: No Hx Chewing Tobacco Use: No Hx Alcohol Use: No Hx Substance Use: No Hx Substance Use Treatment: No Hx Depression: Yes Hx Physical Abuse: No Hx Emotional Abuse: No Hx Suspected Abuse: No - Female History Patient is a Female of Child Bearing Age (10 -59 yrs old): No Patient : No - Triage Comment ED Triage Comment: chest pain for past week everyday, pain increases with movement Family Medical History - Family History Mother Family History: Unknown Hx Family Asthma: Yes - child Hx Family Cancer: Yes - breast-sister Physical Exam - Physical Exam General Appearance: Alert, Comfortable, No apparent distress Eyes, Ears, Nose, Throat Exam: normal ENT inspection, pharynx normal Neck: non-tender, full range of motion, supple, normal inspection Respiratory: lungs clear, normal breath sounds, no respiratory distress Cardiovascular/Chest: normal peripheral pulses, regular rate, rhythm, no murmur Peripheral Pulses: radial,right: 2+, radial,left: 2+ Gastrointestinal/Abdominal: non tender, soft, no organomegaly Neurologic: alert, oriented x 3 Skin Exam: normal color, warm/dry Progress - Progress Progress: 05/01/18 00:27 Vital Signs - 24 hr 04/30/18 22:55 Temperature 99.2 F Pulse Rate [ 112 H Right] Respiratory 20 Rate Blood Pressure 139/77 [Left Arm] O2 Sat by Pulse 97 Oximetry - Results/Orders Results/Orders: 04/30/18 23:00 IV Care:Saline Lock per Protoc QSHIFT 04/30/18 23:30 EKG STAT 05/01/18 02:36 EKG Assessment ONCE 05/01/18 02:45 EKG STAT Laboratory Results - last 24 hr 04/30/18 04/30/18 04/30/18 23:32 23:32 23:32 WBC 8.3 RBC 4.93 Hgb 13.4 Hct 41.3 MCV 83.7 MCH 27.2 MCHC 32.5 L RDW 14.4 Plt Count 277 MPV 7.9 Absolute Neuts (auto) 5.10 Absolute Lymphs (auto) 2.40 Absolute Monos (auto) 0.60 Absolute Eos (auto) 0.20 Absolute Basos (auto) 0.00 Neutrophils % 60.9 Lymphocytes % 28.5 Monocytes % 7.3 Eosinophils % 2.7 Basophils % 0.6 PT 9.0 INR 0.90 PTT (SP) 21.4 L D-Dimer, Quantitative 1.02 H* Sodium 139 Potassium 3.5 L Chloride 107 Carbon Dioxide 23 Anion Gap 12.5 BUN 10 Creatinine 0.53 L BUN/Creatinine Ratio 18.9 Random Glucose 143 H Serum Osmolality 279.1 Calcium 8.5 Magnesium 1.8 Total Bilirubin 0.2 Direct Bilirubin < 0.1 Indirect Bilirubin 0.1 L AST 25 ALT 23 Alkaline Phosphatase 127 H Creatine Kinase 74 CK-MB (CK-2) 1.7 CK-MB (CK-2) % Not Reportable Troponin I < 0.02 Serum Total Protein 7.0 Albumin 3.4 Serum HCG, Qual Negative Urine Color Urine Appearance Urine pH Ur Specific [place] Urine Protein Urine Glucose (UA) Urine Ketones Urine Blood Urine Nitrite Urine Bilirubin Urine Urobilinogen Ur Leukocyte Esterase Urine RBC Urine WBC Ur Epithelial Cells Urine Bacteria 04/30/18 05/01/18 23:45 01:30 WBC RBC Hgb Hct MCV MCH MCHC RDW Plt Count MPV Absolute Neuts (auto) Absolute Lymphs (auto) Absolute Monos (auto) Absolute Eos (auto) Absolute Basos (auto) Neutrophils % Lymphocytes % Monocytes % Eosinophils % Basophils % PT INR PTT (SP) D-Dimer, Quantitative Sodium Potassium Chloride Carbon Dioxide Anion Gap BUN Creatinine BUN/Creatinine Ratio Random Glucose Serum Osmolality Calcium Magnesium Total Bilirubin Direct Bilirubin Indirect Bilirubin AST ALT Alkaline Phosphatase Creatine Kinase CK-MB (CK-2) CK-MB (CK-2) % Troponin I < 0.02 Serum Total Protein Albumin Serum HCG, Qual Urine Color Yellow Urine Appearance Clear Urine pH 6.0 Ur Specific [place] > 1.030 H Urine Protein Negative Urine Glucose (UA) Negative Urine Ketones Negative Urine Blood Negative Urine Nitrite Negative Urine Bilirubin Negative Urine Urobilinogen 0.2 Ur Leukocyte Esterase Negative Urine RBC 1-3 Urine WBC 0 Ur Epithelial Cells 3-5 Urine Bacteria Rare Discuss all test result with patient and her previously elevated d- dimer in the past as well as today mentioned that she had CTA-chest w/c was negative for pulmonary embolus - EKG/XRAY/CT EKG: Sinus, Tachy, no ST T wave changes Comments: HR-117 XRAY: chest - no acute abnormalities - Additional EKG/XRAY/Consults EKG #2: Sinus, nonspecific ST T wave Chg Comments: HR-99 Departure - Departure Clinical Impression: Chest pain Qualifiers: Chest pain type: unspecified Qualified Code(s): R07.9 - Chest pain, unspecified Time of Disposition: 02:55 Disposition: Discharge to Home or Self Care Condition: Fair Departure Forms: ED Discharge - Pt. Copy, Patient Portal Self Enrollment Instructions: DI for Chest Pain Referrals: TY BARRAZA [Primary Care Provider] - 1-2 Weeks Prescriptions: Acetamin W/Cod #3 Tab [Tylenol w/CODEINE #3] 1 ea PO TID PRN #2 tab PRN Reason: Pain Home Medications: Ambulatory Orders Melatonin 10 mg PO BEDTIME 01/08/18 carBAMazepine [TEGretol] 300 mg PO TID 01/08/18 Pantoprazole Sodium [Protonix] 20 mg PO ACBK #60 tablet 01/16/18 Buspirone HCl 15 mg PO BID 04/02/18 HYDROcodone 5MG/APAP 325MG [[place] 5/325] 1 tab PO Q4H PRN 04/02/18 Acetamin W/Cod #3 Tab [Tylenol w/CODEINE #3] 1 ea PO TID PRN #2 tab 05/01/18 Additional Instructions: Follow up with primary Md for recheck 02 May 2018 for cardiology consult;Return to er as needed
[2018-05-01] MEDS ORDERED: SODIUM CHLORIDE 0.9% 1000ML 1,000 ML IVS ONE (00:43)
[2018-05-01] MEDS ORDERED: ACETAMINOPHEN W/COD #3 TAB (ER Disp) PO ONE (02:56)
[2018-05-01 03:15] VITALS: BP 149/89; TEMP 98.7; O2SAT 96
== END 2018-05-01 03:15 | disposition home or self-care (01) ==
LOC: ER 22:15
DX: R07.9 Chest pain, unspecified (principal); R00.0 Tachycardia, unspecified; R06.02 Shortness of breath; K21.9 Gastro-esophageal reflux disease without esophagitis; J45.909 Unspecified asthma, uncomplicated; R56.9 Unspecified convulsions; F32.9 Major depressive disorder, single episode, unspecified; Z79.899 Other long term (current) drug therapy; Z90.49 Acquired absence of other specified parts of digestive tract
CPT/HCPCS: 36415; 71045; 80048; 80076; 81001; 82550; 82553; 84484; 84703; 85025; 85379; 85610; 85730; 93005; J2270; J2360; J7030

== ENCOUNTER 2018-05-26 20:32 | Emergency (ER) | payer OTHER ==
[2018-05-26 20:57] VITALS: TEMP 99.7; O2SAT 98
--- NOTE | 2018-05-26 21:03 | ED.PDOC ---
History of Present Illness - General Chief Complaint: Abdominal Pain Stated Complaint: rt side abd pain Time Seen by Provider: 05/26/18 20:40 Information Source: patient Exam Limitations: no limitations - History of Present Illness Initial Comments: Betsey Rowan 32 y/o Abdominal Pain Onset Location: RLQ Pain Radiation: no radiation Quality: sharpness Timing/Duration: other - 48 hours Improving Factors: nothing Worsening Factors: eating Associated Symptoms: other - loss of appetite Review of Systems - Review of Systems Constitutional: States: no symptoms reported EENTM: States: no symptoms reported Respiratory: States: no symptoms reported Cardiology: States: no symptoms reported Gastrointestinal/Abdominal: States: see HPI Genitourinary: States: no symptoms reported All other Systems: Reviewed and Negative, No Change from Baseline Past Medical History (General) - Patient Medical History Hx Seizures: Yes Hx Stroke: No Hx Dementia: No Hx Asthma: Yes Hx of COPD: No Hx Cardiac Disorders: No Hx Congestive Heart Failure: No Hx Pacemaker: No Hx Hypertension: No Hx Thyroid Disease: No Hx Diabetes: No Hx Gastroesophageal Reflux: No Hx Renal Disease: No Hx Cancer: No Hx of HIV: No Hx Hepatitis C: No Hx MRSA: No Surgical History: cholecystectomy, other - hysterectomy - Vaccination History Hx Tetanus, Diphtheria Vaccination: No Hx Influenza Vaccination: No Hx Pneumococcal Vaccination: No - Social History Hx Tobacco Use: No Hx Chewing Tobacco Use: No Hx Alcohol Use: No Hx Substance Use: No Hx Substance Use Treatment: No Hx Depression: Yes Hx Physical Abuse: No Hx Emotional Abuse: No Hx Suspected Abuse: No - Female History Patient : No Family Medical History - Family History Mother Family History: Unknown Hx Family Asthma: Yes - child Hx Family Cancer: Yes - breast-sister Physical Exam - Physical Exam General Appearance: Alert, Anxious, No apparent distress Eyes, Ears, Nose, Throat Exam: normal ENT inspection, pharynx normal Neck: non-tender, full range of motion, supple, normal inspection Respiratory: chest non-tender, lungs clear, normal breath sounds, no respiratory distress Cardiovascular/Chest: normal peripheral pulses, regular rate, rhythm, no murmur Peripheral Pulses: No deficit Gastrointestinal/Abdominal: soft, tenderness - right lower quadrant,no peritoneal signs Back Exam: no CVA tenderness, no vertebral tenderness Extremity: no pedal edema, no calf tenderness Neurologic: alert, oriented x 3 Skin Exam: normal color, warm/dry Lymphatic: no adenopathy Special Observations: Using mobile device Progress - Progress Progress: 05/26/18 22:45 Vital Signs 05/26/18 20:48 Temperature 99.7 F H Pulse Rate [ 95 H left] Respiratory 18 Rate Blood Pressure 111/83 [left] O2 Sat by Pulse 98 Oximetry - Results/Orders Results/Orders: 05/26/18 20:57 UA [URINALYSIS] Stat 05/26/18 21:05 Hold Metformin x 48Hrs [id number] IV Care:Saline Lock per Protoc QSHIFT Laboratory Results - last 24 hr 05/26/18 05/26/18 05/26/18 20:44 20:44 21:04 WBC 8.4 RBC 4.72 Hgb 12.8 Hct 39.2 MCV 83.1 MCH 27.1 MCHC 32.6 L RDW 13.7 Plt Count 311 MPV 7.3 L Absolute Neuts (auto) 4.90 Absolute Lymphs (auto) 2.80 Absolute Monos (auto) 0.60 Absolute Eos (auto) 0.10 Absolute Basos (auto) 0.00 Neutrophils % 57.7 Lymphocytes % 33.5 Monocytes % 6.8 Eosinophils % 1.6 Basophils % 0.4 Sodium Potassium Chloride Carbon Dioxide Anion Gap BUN Creatinine BUN/Creatinine Ratio Random Glucose Serum Osmolality Calcium Total Bilirubin AST ALT Alkaline Phosphatase Serum Total Protein Albumin Globulin Albumin/Globulin Ratio Urine Color Yellow Urine Appearance Clear Urine pH 5.5 Ur Specific [place] 1.025 Urine Protein Negative Urine Glucose (UA) Negative Urine Ketones Negative Urine Blood Negative Urine Nitrite Negative Urine Bilirubin Negative Urine Urobilinogen 0.2 Ur Leukocyte Esterase Negative Urine RBC 0-1 Urine WBC 1-3 Ur Epithelial Cells 3-5 Urine Bacteria 3+ H Urine HCG, Qual Negative 05/26/18 21:04 WBC RBC Hgb Hct MCV MCH MCHC RDW Plt Count MPV Absolute Neuts (auto) Absolute Lymphs (auto) Absolute Monos (auto) Absolute Eos (auto) Absolute Basos (auto) Neutrophils % Lymphocytes % Monocytes % Eosinophils % Basophils % Sodium 141 Potassium 4.0 Chloride 104 Carbon Dioxide 26 Anion Gap 15.0 BUN 19 H Creatinine 0.83 BUN/Creatinine Ratio 22.9 H Random Glucose 96 Serum Osmolality 283.4 Calcium 8.8 Total Bilirubin 0.4 AST 19 ALT 21 Alkaline Phosphatase 121 Serum Total Protein 7.1 Albumin 3.8 Globulin 3.3 Albumin/Globulin Ratio 1.2 Urine Color Urine Appearance Urine pH Ur Specific [place] Urine Protein Urine Glucose (UA) Urine Ketones Urine Blood Urine Nitrite Urine Bilirubin Urine Urobilinogen Ur Leukocyte Esterase Urine RBC Urine WBC Ur Epithelial Cells Urine Bacteria Urine HCG, Qual - EKG/XRAY/CT CT Ordered: Yes - abd/p-no acute inflammatory process,no ureteral calculus Departure - Departure Clinical Impression: Abdominal pain Qualifiers: Abdominal location: right lower quadrant Qualified Code(s): R10.31 - Right lower quadrant pain Time of Disposition: 22:46 Disposition: Discharge to Home or Self Care Condition: Fair Departure Forms: ED Discharge - Pt. Copy, Patient Portal Self Enrollment Instructions: DI for Abdominal Pain-Adult Referrals: TY BARRAZA [Primary Care Provider] - 1-2 Weeks Home Medications: Ambulatory Orders Melatonin 10 mg PO BEDTIME 01/08/18 carBAMazepine [TEGretol] 300 mg PO TID 01/08/18 Pantoprazole Sodium [Protonix] 20 mg PO ACBK #60 tablet 01/16/18 Buspirone HCl 15 mg PO BID 04/02/18 HYDROcodone 5MG/APAP 325MG [[place] 5/325] 1 tab PO Q4H PRN 04/02/18 Acetamin W/Cod #3 Tab [Tylenol w/CODEINE #3] 1 ea PO TID PRN #2 tab 05/01/18 Additional Instructions: Avoid greasy,spicy foods.follow up with primary Md 29 May 2018 for re check;continue with home meds
[2018-05-26] MEDS ORDERED: LACTATED RINGERS 1,000 ML IVS ONE (21:05)
[2018-05-26] MEDS ORDERED: MORPHINE SULFATE INJ 10 MG/ML VIAL IV ONE ×2 (21:05→21:53)
[2018-05-26] MEDS ORDERED: PROCHLORPERAZINE INJ 10 MG/2 ML VIAL IV ONE (21:05)
--- NOTE | 2018-05-26 22:33 | CT ---
CLINICAL HISTORY: RLQ pain COMPARISON: January 16, 2018. TECHNIQUE: CT ABDOMEN PELVIS WITH IV CONTRAST on 05/26/2018 9:04 PM ENVIRONMENTAL HEALTH PHYSICIAN This exam was performed according to our departmental dose-optimization program, which includes automated exposure control, adjustment of the mA and/or kV according to patient size and/or use of iterative reconstruction technique. FINDINGS: Lower lungs are clear. Abdomen: The liver is normal in appearance. There is mild intra and extrahepatic biliary dilatation following cholecystectomy. Common bile duct measures 1.1 cm. The pancreas and spleen are normal in appearance. The adrenal glands and kidneys are unremarkable. Abdominal aorta is normal in course and caliber without aneurysm. There is no free air. There is no retroperitoneal adenopathy. Pelvis: There is no bowel obstruction. Urinary bladder is unremarkable. There is no free fluid. Hysterectomy was performed. Appendix is normal. Skeleton: There are no acute osseous findings. No suspicious bony lesions. IMPRESSION: No acute inflammatory process. No renal or ureteral calculi. Electronically signed by: Mario Elliott MD 05/26/2018 10:30 PM ENVIRONMENTAL HEALTH PHYSICIAN
[2018-05-26 23:00] VITALS: BP 126/75
== END 2018-05-26 23:00 | disposition home or self-care (01) ==
LOC: ER 20:32
DX: R10.31 Right lower quadrant pain (principal); J45.909 Unspecified asthma, uncomplicated; Z90.49 Acquired absence of other specified parts of digestive tract; Z90.710 Acquired absence of both cervix and uterus
CPT/HCPCS: 36415; 74177; 80053; 81001; 81025; 85025; J0780; J2270; J7120

== ENCOUNTER → 2018-05-30 | Outpatient (CLI) | payer OTHER ==
--- NOTE | 2018-05-30 15:28 | MRI ---
Study: MRI of the Left Shoulder. Indication: TEAR OF ROTATOR CUFF Technique: Multiplanar, multi sequence MRI of the left shoulder was obtained without intravenous contrast. Comparison: None. Findings: Mild AC joint osteoarthritis. Mild type II acromion with moderate downsloping. Trace subacromial/subdeltoid bursal fluid. Supraspinatus and infraspinatus tendinosis noted with subtle low-grade interstitial fissuring throughout the supraspinatus tendon insertion and anterior margin infraspinatus tendon insertion. No full-thickness tear. Subscapularis tendinosis. Teres minor tendon intact. Rotator cuff musculature normal without atrophy, fatty infiltration, or intramuscular edema. Intracapsular long head biceps tendinosis. High-grade undersurface tearing throughout the base of the bicipital labral anchor and superior labrum with posterior propagation to the 10:00 position indicating a SLAP tear. Tiny joint effusion. No acute fracture or advanced glenohumeral joint osteoarthritis. Impression: Supraspinatus and infraspinatus tendinosis with low-grade interstitial fissuring of both tendons. Subscapularis tendinosis. Intracapsular long head biceps tendinosis. SLAP tear. Tiny glenohumeral joint effusion. Mild AC joint osteoarthritis. Electronically signed by: Alhaji Daniel MD 05/30/2018 3:24 PM [facility]
== END ==
LOC: MRI 14:00
PROVIDERS: ATTEND Emergency Medicine
DX: M75.102 Unspecified rotator cuff tear or rupture of left shoulder, not specified as traumatic (principal); M75.22 Bicipital tendinitis, left shoulder; M19.012 Primary osteoarthritis, left shoulder

== ENCOUNTER 2018-06-18 19:41 | Emergency (ER) | payer OTHER ==
[2018-06-18 19:55] VITALS: TEMP 100
[2018-06-18] MEDS ORDERED: fentaNYL CITRATE INJ 50 MCG/ML AMP ONE (20:01)
[2018-06-18] MEDS ORDERED: PROMETHAZINE HCL INJ 25 MG/ML VIAL ONE (20:01)
[2018-06-18] MEDS ORDERED: fentaNYL CITRATE INJ 50 MCG/ML AMP IM ONE (20:02)
[2018-06-18] MEDS ORDERED: PROMETHAZINE HCL INJ 25 MG/ML VIAL IM ONE (20:03)
--- NOTE | 2018-06-18 20:06 | ED.PDOC ---
History of Present Illness - General Chief Complaint: Headache Stated Complaint: headache for one week Time Seen by Provider: 06/18/18 20:02 Source: patient, RN notes reviewed, Vital Signs reviewed Additional Information: 32 YEAR OLD WHITE FEMALE PRESENTS WITH HEADACHE STARTING FROM OCCIPUT TO THE FRONTAL SCALP LAST 1 WEEK NOT BETTER WITH OTC PAIN MEDS SHE HAS HAD SIMILAR HEADACHES FOR SEVERAL YEARS SHE HAS NO FEVER CHILLS NO SKIN RASH NO VISUAL SCOTOMAS NO RECENT HEAD TRAUMA NO SINUS DENTAL SYMPTOMS - History of Present Illness Timing/Duration: 1 week Severity: moderate Improving Factors: nothing Worsening Factors: nothing Associated Symptoms: headaches Allergies/Adverse Reactions: Allergies Aspirin Allergy (Verified 04/12/18 22:25) Ibuprofen Allergy (Verified 04/12/18 22:25) Ketorolac Tromethamine [From Toradol] Allergy (Verified 04/12/18 22:25) Levofloxacin [From Levaquin] Allergy (Verified 04/12/18 22:25) Phenytoin [From Dilantin] Allergy (Verified 04/12/18 22:25) Tramadol Allergy (Verified 04/12/18 22:25) Vancomycin Allergy (Verified 04/12/18 22:25) Home Medications: Ambulatory Orders carBAMazepine [TEGretol] 300 mg PO TID 01/08/18 Buspirone HCl 15 mg PO BID 04/02/18 HYDROcodone 5MG/APAP 325MG [[place] 5/325] 1 tab PO Q4H PRN 04/02/18 Review of Systems - Review of Systems Constitutional: States: no symptoms reported EENTM: States: no symptoms reported Respiratory: States: no symptoms reported Cardiology: States: no symptoms reported Gastrointestinal/Abdominal: States: no symptoms reported Genitourinary: States: no symptoms reported Musculoskeletal: States: no symptoms reported Skin: States: no symptoms reported Neurological: States: see HPI, headache Endocrine: States: no symptoms reported Hematologic/Lymphatic: States: no symptoms reported Past Medical History (General) - Patient Medical History Hx Seizures: Yes Hx Stroke: No Hx Dementia: No Hx Asthma: Yes Hx of COPD: No Hx Cardiac Disorders: No Hx Congestive Heart Failure: No Hx Pacemaker: No Hx Hypertension: No Hx Thyroid Disease: No Hx Diabetes: No Hx Gastroesophageal Reflux: No Hx Renal Disease: No Hx Cancer: No Hx of HIV: No Hx Hepatitis C: No Hx MRSA: No Surgical History: cholecystectomy, Hysterectomy - Vaccination History Hx Tetanus, Diphtheria Vaccination: No Hx Influenza Vaccination: No Hx Pneumococcal Vaccination: No - Social History Hx Tobacco Use: No Hx Chewing Tobacco Use: No Hx Alcohol Use: No Hx Substance Use: No Hx Substance Use Treatment: No Hx Depression: Yes Hx Physical Abuse: No Hx Emotional Abuse: No Hx Suspected Abuse: No - Female History Patient is a Female of Child Bearing Age (10 -59 yrs old): No Patient : No Family Medical History - Family History Mother Family History: Unknown Hx Family Asthma: Yes - child Hx Family Cancer: Yes - breast-sister Physical Exam - Physical Exam General Appearance: Alert, Comfortable Eye Exam: bilateral normal Ears, Nose, Throat: hearing grossly normal, normal ENT inspection, normal pharynx Neck: non-tender, full range of motion, supple, normal inspection Respiratory: chest non-tender, lungs clear, normal breath sounds, no respiratory distress, no accessory muscle use Cardiovascular/Chest: normal peripheral pulses, regular rate, rhythm, no edema, no gallop, no JVD, no murmur Gastrointestinal/Abdominal: normal bowel sounds, non tender, soft, no organomegaly Back Exam: normal inspection, no CVA tenderness, no vertebral tenderness Extremity: normal range of motion, non-tender, normal inspection Departure - Departure Clinical Impression: Headache, Migraine Time of Disposition: 20:44 Disposition: Discharge to Home or Self Care Departure Forms: ED Discharge - Pt. Copy, Patient Portal Self Enrollment Instructions: DI for Headache Referrals: TY BARRAZA [Primary Care Provider] - 1-2 Weeks Home Medications: Ambulatory Orders carBAMazepine [TEGretol] 300 mg PO TID 01/08/18 Buspirone HCl 15 mg PO BID 04/02/18 HYDROcodone 5MG/APAP 325MG [[place] 5/325] 1 tab PO Q4H PRN 04/02/18 Comments: PLEASE FOLLOW UP WITH YOUR PCP
[2018-06-18 20:39] VITALS: BP 106/82; O2SAT 98
== END 2018-06-18 20:50 | disposition home or self-care (01) ==
LOC: ER 19:41
DX: G43.909 Migraine, unspecified, not intractable, without status migrainosus (principal); J45.909 Unspecified asthma, uncomplicated; F32.9 Major depressive disorder, single episode, unspecified; R56.9 Unspecified convulsions; Z79.899 Other long term (current) drug therapy; Z88.5 Allergy status to narcotic agent; Z88.6 Allergy status to analgesic agent; Z88.8 Allergy status to other drugs, medicaments and biological substances; Z88.1 Allergy status to other antibiotic agents
CPT/HCPCS: J2550; J3010

== ENCOUNTER 2018-06-19 00:19 | Emergency (ER) | payer OTHER ==
[2018-06-19] MEDS ORDERED: MORPHINE SULFATE INJ 10 MG/ML VIAL IM ONE (00:34)
[2018-06-19] MEDS ORDERED: ONDANSETRON INJ 4 MG/2 ML VIAL IV ONE (00:35)
[2018-06-19 00:36] VITALS: O2SAT 96
[2018-06-19] MEDS ORDERED: ONDANSETRON INJ 4 MG/2 ML VIAL IM ONE (00:38)
--- NOTE | 2018-06-19 00:38 | ED.PDOC ---
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 NO FOCAL NEUROLOGICAL DEFICIT - History of Present Illness Timing/Duration: unsure Severity: moderate Improving Factors: nothing Worsening Factors: nothing Associated Symptoms: denies symptoms Allergies/Adverse Reactions: Allergies Aspirin Allergy (Verified 04/12/18 22:25) Azithromycin Allergy (Verified 06/19/18 00:28) Ibuprofen Allergy (Verified 04/12/18 22:25) Ketorolac Tromethamine [From Toradol] Allergy (Verified 04/12/18 22:25) Levofloxacin [From Levaquin] Allergy (Verified 04/12/18 22:25) Phenytoin [From Dilantin] Allergy (Verified 04/12/18 22:25) Tramadol Allergy (Verified 04/12/18 22:25) Vancomycin Allergy (Verified 04/12/18 22:25) Home Medications: Ambulatory Orders carBAMazepine [TEGretol] 300 mg PO TID 01/08/18 Buspirone HCl 15 mg PO BID 04/02/18 HYDROcodone 5MG/APAP 325MG [[place] 5/325] 1 tab PO Q4H PRN 04/02/18 Acetamin W/Cod #3 Tab [Tylenol w/CODEINE #3] 1 ea PO Q6HR PRN #40 tab 06/19/18 Review of Systems - Review of Systems Constitutional: States: no symptoms reported EENTM: States: no symptoms reported Respiratory: States: no symptoms reported Cardiology: States: no symptoms reported Gastrointestinal/Abdominal: States: no symptoms reported Genitourinary: States: no symptoms reported Skin: States: no symptoms reported Neurological: States: see HPI Endocrine: States: no symptoms reported Hematologic/Lymphatic: States: no symptoms reported Past Medical History (General) - Patient Medical History Hx Seizures: Yes Hx Stroke: No Hx Dementia: No Hx Asthma: Yes Hx of COPD: No Hx Cardiac Disorders: No Hx Congestive Heart Failure: No Hx Pacemaker: No Hx Hypertension: No Hx Thyroid Disease: No Hx Diabetes: No Hx Gastroesophageal Reflux: No Hx Renal Disease: No Hx Cancer: No Hx of HIV: No Hx Hepatitis C: No Hx MRSA: No Surgical History: cholecystectomy, Hysterectomy - Vaccination History Hx Tetanus, Diphtheria Vaccination: No Hx Influenza Vaccination: No Hx Pneumococcal Vaccination: No Immunizations Up to Date: No - Social History Hx Tobacco Use: No Hx Chewing Tobacco Use: No Hx Alcohol Use: No Hx Substance Use: No Hx Substance Use Treatment: No Hx Depression: Yes Hx Physical Abuse: No Hx Emotional Abuse: No Hx Suspected Abuse: No - Female History Patient is a Female of Child Bearing Age (10 -59 yrs old): No Patient : No Family Medical History - Family History Mother Family History: Unknown Hx Family Asthma: Yes - child Hx Family Cancer: Yes - breast-sister Physical Exam - Physical Exam General Appearance: Alert, Comfortable Eye Exam: bilateral normal Ears, Nose, Throat: hearing grossly normal, normal ENT inspection, normal pharynx Neck: non-tender, full range of motion, supple Respiratory: chest non-tender, lungs clear, normal breath sounds Cardiovascular/Chest: normal peripheral pulses, regular rate, rhythm, no edema Peripheral Pulses: radial,right: 2+, radial,left: 2+, femoral,right: 2+, femoral,left: 2+ Back Exam: normal inspection Extremity: normal range of motion, non-tender, normal inspection 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 Copy, Patient Portal Self Enrollment Instructions: DI for Concussion, DI for Closed Head Injury Referrals: TY BARRAZA [Primary Care Provider] - 1-2 Weeks Home Medications: Ambulatory Orders carBAMazepine [TEGretol] 300 mg PO TID 01/08/18 Buspirone HCl 15 mg PO BID 04/02/18 HYDROcodone 5MG/APAP 325MG [[place] 5/325] 1 tab PO Q4H PRN 04/02/18 Acetamin W/Cod #3 Tab [Tylenol w/CODEINE #3] 1 ea PO Q6HR PRN #40 tab 06/19/18 Comments: FOLLOW UP WITH YOUR MD
--- NOTE | 2018-06-19 01:17 | CT ---
CT HEAD WITHOUT CONTRAST 06/19/2018 CLINICAL HISTORY: Head trauma COMPARISON: None. TECHNIQUE: Axial [address] imaging of the brain. Reformatted coronal and sagittal images obtained. This examination was performed according to our departmental dose optimization program, which includes automated exposure control, adjustment of the mA and/or kV according to patient size and/or use of iterative reconstruction technique. FINDINGS: Ventricles and extra-axial spaces appear normal. Cummings-white matter differentiation is preserved. No edema, intracranial hemorrhage, mass, or midline shift. No acute infarction evident. No hyperdense. Normal cerebellum and vermis. Fourth ventricle is midline. Prepontine cisterns are not effaced. Normal sella contents. Intact globes. There is mild mucosal thickening within the left greater than right ethmoid air cells. Mastoid air cells are clear bilaterally. Intact skull base. Intact calvarium. Unremarkable scalp soft tissues. IMPRESSION: 1. No intracranial acute finding. 2. Mucosal sinus disease. Electronically signed by: Maria Guadalupe Durbin DO 06/19/2018 1:14 AM CDT
--- NOTE | 2018-06-19 01:23 | CT ---
CT CERVICAL SPINE WITHOUT CONTRAST. 06/19/2018 CLINICAL HISTORY: Pain after fall COMPARISON: None. TECHNIQUE: Axial 2.[address] imaging of the cervical spine. Reformatted coronal and sagittal images obtained. A dose reduction technique was utilized. FINDINGS: There is significant broad reversal of cervical lordosis. The craniocervical and cervicothoracic junction alignment are maintained. There are moderate hypertrophic degenerative endplate changes within the cervical spine from C3 to C6. There is no compression fracture. There is no subluxation. No odontoid process or lateral mass fracture. No prevertebral edema. No spinal canal or foraminal stenosis. No fracture within the posterior elements. The included portions of the posterior fossa appear normal. Parapharyngeal soft tissues and mucosal spaces appear normal. Normal thyroid. Clear lung apices. Nonenlarged scattered neck lymph nodes. IMPRESSION: 1. Broad reversal of cervical lordosis with moderate cervical spondylosis. No acute fracture or traumatic subluxation. Electronically signed by: Maria Guadalupe Durbin DO 06/19/2018 1:19 AM CDT
[2018-06-19 01:42] VITALS: BP 110/78; TEMP 99.1
== END 2018-06-19 01:42 | disposition home or self-care (01) ==
LOC: ER 00:19
DX: G43.109 Migraine with aura, not intractable, without status migrainosus (principal); S16.1XXA Strain of muscle, fascia and tendon at neck level, initial encounter; R56.9 Unspecified convulsions; F32.9 Major depressive disorder, single episode, unspecified; J45.909 Unspecified asthma, uncomplicated; Z79.899 Other long term (current) drug therapy; Z88.8 Allergy status to other drugs, medicaments and biological substances; Z88.5 Allergy status to narcotic agent; Z88.1 Allergy status to other antibiotic agents; Z88.6 Allergy status to analgesic agent; W22.09XA Striking against other stationary object, initial encounter; Y92.89 Other specified places as the place of occurrence of the external cause
CPT/HCPCS: 70450; 72125; J2270; J2405

== ENCOUNTER → 2018-06-29 | Outpatient (CLI) | payer OTHER ==
--- NOTE | 2018-06-29 13:18 | RAD ---
EXAM DESCRIPTION: Shoulder,Left four x-ray Views CLINICAL HISTORY: M25.512 COMPARISON: Previous study December 10, 2017 TECHNIQUE: Four views of the left shoulder. FINDINGS: There is adequate internal and external rotation. Normal alignment on transcatheter Y view and transaxillary view There is no fracture or dislocation. There are no significant degenerative changes observed. AC joint appears intact. No focal bone lesion. Prominent leftward curvature of the upper T-spine. IMPRESSION: Negative for fracture or dislocation. Electronically signed by: Jan Mcnair MD 06/29/2018 1:14 PM CDT
== END ==
LOC: RAD 08:53
PROVIDERS: ATTEND Orthopaedic Surgery
DX: M25.512 Pain in left shoulder (principal)

== ENCOUNTER 2018-08-03 20:24 | Emergency (ER) | payer OTHER ==
[2018-08-03 20:56] VITALS: BP 147/85
[2018-08-03] MEDS ORDERED: CLINDAMYCIN HCL CAP 150 MG CAP PO ONE (21:05)
[2018-08-03] MEDS ORDERED: PROMETHAZINE HCL 25 MG TAB PO ONE (21:05)
[2018-08-03] MEDS ORDERED: traMADol HCL 50 MG TAB PO ONE (21:06)
[2018-08-03] MEDS ORDERED: ACETAMINOPHEN-CAFF-BUTALBITAL 1 EA TAB PO ONE (21:07)
--- NOTE | 2018-08-03 21:10 | ED.PDOC ---
History of Present Illness - General Chief Complaint: Dental/Mouth Stated Complaint: toothache Time Seen by Provider: 08/03/18 21:03 Source: patient Exam Limitations: no limitations - History of Present Illness Initial Comments: the patient is a 32-year-old female presenting secondary to pain from infected dental caries. She has very poor dentition with numerous broken off teeth. The one causing her pain currently is her bottom right most posterior molar. No obvious abscess formation. It is been hurting her for 2 days. Severity: moderate Improving Factors: nothing Worsening Factors: nothing Associated Symptoms: denies symptoms Allergies/Adverse Reactions: Allergies Aspirin Allergy (Verified 04/12/18 22:25) Azithromycin Allergy (Verified 06/19/18 00:28) Ibuprofen Allergy (Verified 04/12/18 22:25) Ketorolac Tromethamine [From Toradol] Allergy (Verified 04/12/18 22:25) Levofloxacin [From Levaquin] Allergy (Verified 04/12/18 22:25) Phenytoin [From Dilantin] Allergy (Verified 04/12/18 22:25) Tramadol Allergy (Verified 04/12/18 22:25) Vancomycin Allergy (Verified 04/12/18 22:25) Home Medications: Ambulatory Orders carBAMazepine [TEGretol] 300 mg PO TID 01/08/18 Buspirone HCl 15 mg PO BID 04/02/18 HYDROcodone 5MG/APAP 325MG [[place] 5/325] 1 tab PO Q4H PRN 04/02/18 Hxrjrdfbyllxi-Ywfh-Nfyhmgkedv [Fioricet] 1 ea PO Q8H PRN #10 tab 08/03/18 Albuterol Inhaler [Ventolin Hfa Inhaler] 1 puff INH PRN 08/03/18 Clindamycin HCl 300 mg PO Q8H #20 cap 08/03/18 Zolpidem Tartrate [Ambien] 10 mg PO BEDTIME 08/03/18 Review of Systems - Review of Systems Constitutional: States: no symptoms reported EENTM: States: see HPI Respiratory: States: no symptoms reported Cardiology: States: no symptoms reported Gastrointestinal/Abdominal: States: no symptoms reported Genitourinary: States: no symptoms reported Musculoskeletal: States: no symptoms reported Skin: States: no symptoms reported Neurological: States: no symptoms reported Endocrine: States: no symptoms reported All other Systems: No Change from Baseline Past Medical History (General) - Patient Medical History Hx Seizures: Yes Hx Stroke: No Hx Dementia: No Hx Asthma: Yes Hx of COPD: No Hx Cardiac Disorders: No Hx Congestive Heart Failure: No Hx Pacemaker: No Hx Hypertension: No Hx Thyroid Disease: No Hx Diabetes: No Hx Gastroesophageal Reflux: No Hx Renal Disease: No Hx Cancer: No Hx of HIV: No Hx Hepatitis C: No Hx MRSA: No - Vaccination History Hx Tetanus, Diphtheria Vaccination: No Hx Influenza Vaccination: No Hx Pneumococcal Vaccination: No - Social History Hx Tobacco Use: No Hx Chewing Tobacco Use: No Hx Alcohol Use: No Hx Substance Use: No Hx Substance Use Treatment: No Hx Depression: Yes Hx Physical Abuse: No Hx Emotional Abuse: No Hx Suspected Abuse: No - Female History Patient : No Family Medical History - Family History Mother Family History: Unknown Hx Family Asthma: Yes - child Hx Family Cancer: Yes - breast-sister Physical Exam - Physical Exam General Appearance: Alert, Comfortable, No apparent distress Eye Exam: bilateral normal Ears, Nose, Throat: hearing grossly normal, other - numerous dental caries and fractured teeth Neck: full range of motion, supple Respiratory: no respiratory distress, no accessory muscle use Cardiovascular/Chest: normal peripheral pulses, no edema, other - borderline tachycardic Peripheral Pulses: radial,right: 2+, radial,left: 2+ Gastrointestinal/Abdominal: soft - obese Rectal Exam: deferred Extremity: normal range of motion, no pedal edema, normal capillary refill 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 She'll be written for clindamycin for the next 7 days and Fioricet for as needed use. She needs to see a dentist. ER warnings were tia lam. Departure - Departure Clinical Impression: Dental caries, Chronic dental infection, Chronic dental pain Disposition: Discharge to Home or Self Care Condition: Fair Departure Forms: ED Discharge - Pt. Copy, Patient Portal Self Enrollment Instructions: DI for Dental Pain Diet: regular diet Activity: increase activity as tolerated Referrals: TY BARRAZA [Primary Care Provider] - 1-2 Weeks Prescriptions: Qzwuosmktbziy-Rrsf-Hfbwdoklub [Fioricet] 1 ea PO Q8H PRN #10 tab PRN Reason: Pain Clindamycin HCl 300 mg PO Q8H #20 cap Home Medications: Ambulatory Orders carBAMazepine [TEGretol] 300 mg PO TID 01/08/18 Buspirone HCl 15 mg PO BID 04/02/18 HYDROcodone 5MG/APAP 325MG [[place] 5/325] 1 tab PO Q4H PRN 04/02/18 Tekbjvfwsrrex-Eowz-Kzlrgtinys [Fioricet] 1 ea PO Q8H PRN #10 tab 08/03/18 Albuterol Inhaler [Ventolin Hfa Inhaler] 1 puff INH PRN 08/03/18 Clindamycin HCl 300 mg PO Q8H #20 cap 08/03/18 Zolpidem Tartrate [Ambien] 10 mg PO BEDTIME 08/03/18 Additional Instructions: the patient's 32-year-old female presenting secondary to pain from i nfected dental caries. She'll be written for clindamycin for the next 7 days and Fioricet for as needed use. She needs to see a dentist. ER warnings were given.
[2018-08-03 21:32] VITALS: TEMP 98.9; O2SAT 94
== END 2018-08-03 21:28 | disposition home or self-care (01) ==
LOC: ER 20:24
DX: K02.9 Dental caries, unspecified (principal); K04.7 Periapical abscess without sinus; S02.5XXA Fracture of tooth (traumatic), initial encounter for closed fracture; F32.9 Major depressive disorder, single episode, unspecified; J45.909 Unspecified asthma, uncomplicated; R56.9 Unspecified convulsions; Z79.899 Other long term (current) drug therapy; Z88.6 Allergy status to analgesic agent; Z88.1 Allergy status to other antibiotic agents; Z88.8 Allergy status to other drugs, medicaments and biological substances; X58.XXXA Exposure to other specified factors, initial encounter; Y92.9 Unspecified place or not applicable

== ENCOUNTER 2018-08-05 04:44 | Emergency (ER) | payer OTHER ==
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
[2018-08-05 05:10] VITALS: O2SAT 99
[2018-08-05] MEDS ORDERED: SODIUM CHLORIDE 0.9% 500ML 500 ML IVS ONE (05:19)
[2018-08-05] MEDS ORDERED: BUTORPHANOL TARTRATE 2 MG/ML VIAL IV ONE (05:25)
[2018-08-05] MEDS ORDERED: PROCHLORPERAZINE INJ 10 MG/2 ML VIAL IV ONE (05:25)
[2018-08-05 06:38] VITALS: BP 121/76; TEMP 97.1
== END 2018-08-05 06:38 | disposition home or self-care (01) ==
LOC: ER 04:44
DX: G40.909 Epilepsy, unspecified, not intractable, without status epilepticus (principal); K04.01 Reversible pulpitis; F32.9 Major depressive disorder, single episode, unspecified; J45.909 Unspecified asthma, uncomplicated; Z87.820 Personal history of traumatic brain injury; Z79.899 Other long term (current) drug therapy; Z88.1 Allergy status to other antibiotic agents; Z88.8 Allergy status to other drugs, medicaments and biological substances; Z88.6 Allergy status to analgesic agent
CPT/HCPCS: 36415; 80048; 80076; 80156; 82550; 82553; 83605; 84484; 85025; 85610; 85730; J0595; J0780; J7040

== ENCOUNTER 2018-08-29 18:43 | Emergency (ER) | payer OTHER ==
[2018-08-29 18:59] VITALS: TEMP 100.1
--- NOTE | 2018-08-29 19:12 | ED.PDOC ---
History of Present Illness - General Chief Complaint: Abdominal Pain Time Seen by Provider: 08/29/18 19:09 Source: patient Exam Limitations: no limitations - History of Present Illness Initial Comments: 3D RLQ PAIN, N/V, FEVERS. CONSTANT. PT NOT ALLERGIC TO MORPHINE. H/O HYSTERECTOMY, TUBAL LIGATION, C-SXN, CHOLECYSTECTOMY. Timing/Duration: constant Severity: moderate Improving Factors: nothing Worsening Factors: nothing Associated Symptoms: nausea/vomiting Allergies/Adverse Reactions: Allergies Aspirin Allergy (Verified 04/12/18 22:25) Azithromycin Allergy (Verified 06/19/18 00:28) Ibuprofen Allergy (Verified 04/12/18 22:25) Ketorolac Tromethamine [From Toradol] Allergy (Verified 04/12/18 22:25) Levofloxacin [From Levaquin] Allergy (Verified 04/12/18 22:25) Phenytoin [From Dilantin] Allergy (Verified 04/12/18 22:25) Tramadol Allergy (Verified 04/12/18 22:25) Vancomycin Allergy (Verified 04/12/18 22:25) Home Medications: Ambulatory Orders carBAMazepine [TEGretol] 300 mg PO TID 01/08/18 Buspirone HCl 15 mg PO BID 04/02/18 HYDROcodone 5MG/APAP 325MG [[place] 5/325] 1 tab PO Q4H PRN 04/02/18 Mgtrkfamhgrvv-Nxud-Sqwdmsddve [Fioricet] 1 ea PO Q8H PRN #10 tab 08/03/18 Albuterol Inhaler [Ventolin Hfa Inhaler] 1 puff INH PRN 08/03/18 Zolpidem Tartrate [Ambien] 10 mg PO BEDTIME 08/03/18 Methylprednisolone [Medrol Dose Sky] 4 mg PO DAILY #1 tab 08/29/18 Review of Systems - Review of Systems Constitutional: States: fever. Denies: chills, diaphoresis EENTM: States: no symptoms reported Respiratory: States: no symptoms reported Cardiology: States: no symptoms reported Gastrointestinal/Abdominal: States: abdominal pain, nausea, vomiting. Denies: constipation, diarrhea Genitourinary: States: no symptoms reported. Denies: dysuria, frequency, hematuria Musculoskeletal: States: no symptoms reported Skin: States: no symptoms reported Neurological: States: no symptoms reported Endocrine: States: no symptoms reported Hematologic/Lymphatic: States: no symptoms reported All other Systems: Reviewed and Negative Past Medical History (General) - Patient Medical History Hx Seizures: Yes Hx Stroke: No Hx Dementia: No Hx Asthma: Yes Hx of COPD: No Hx Cardiac Disorders: No Hx Congestive Heart Failure: No Hx Pacemaker: No Hx Hypertension: No Hx Thyroid Disease: No Hx Diabetes: No Hx Gastroesophageal Reflux: No Hx Renal Disease: No Hx Cancer: No Hx of HIV: No Hx Hepatitis C: No Hx MRSA: No - Vaccination History Hx Tetanus, Diphtheria Vaccination: No Hx Influenza Vaccination: No Hx Pneumococcal Vaccination: No - Social History Hx Tobacco Use: No Hx Chewing Tobacco Use: No Hx Alcohol Use: No Hx Substance Use: No Hx Substance Use Treatment: No Hx Depression: No Hx Physical Abuse: No Hx Emotional Abuse: No Hx Suspected Abuse: No - Female History Patient : No - hystorectomy Family Medical History - Family History Mother Family History: Unknown Hx Family Asthma: Yes - child Hx Family Cancer: Yes - breast-sister Physical Exam - Physical Exam General Appearance: Alert, Obese Eye Exam: bilateral normal Ears, Nose, Throat: hearing grossly normal, normal ENT inspection Neck: full range of motion, normal inspection Respiratory: no respiratory distress, no accessory muscle use Cardiovascular/Chest: normal peripheral pulses, regular rate, rhythm Gastrointestinal/Abdominal: normal bowel sounds, soft, no organomegaly, no pulsatile mass, tenderness - RLQ Rectal Exam: deferred Back Exam: no CVA tenderness, no vertebral tenderness Extremity: normal range of motion, normal inspection Neurologic: alert, normal mood/affect Skin Exam: normal color, warm/dry Lymphatic: no adenopathy Progress - Progress Progress: 08/29/18 21:59 W/U NEG: CT, UA, CBC, CMP, LIPASE, HCG. W/U NEG TO EXPLAIN PT'S RLQ PAIN, THUS I WILL D/C WITH RX FOR MEDROL DOSE PACK FOR PAIN AND INFLAMMATION CONTROL. F/U W/ PCP. SAFE FOR DC TO HOME. Departure - Departure Clinical Impression: RLQ abdominal pain Nausea & vomiting Qualifiers: Vomiting type: unspecified Vomiting Intractability: non-intractable Qualified Code(s): R11.2 - Nausea with vomiting, unspecified Disposition: Discharge to Home or Self Care Condition: Good Departure Forms: ED Discharge - Pt. Copy, Patient Portal Self Enrollment Instructions: DI for Abdominal Pain-Adult Diet: bland diet Activity: increase activity as tolerated Referrals: Rach Howard NP [Primary Care Provider] - 1-2 Weeks Prescriptions: Methylprednisolone [Medrol Dose Sky] 4 mg PO DAILY #1 tab Home Medications: Ambulatory Orders carBAMazepine [TEGretol] 300 mg PO TID 01/08/18 Buspirone HCl 15 mg PO BID 04/02/18 HYDROcodone 5MG/APAP 325MG [[place] 5/325] 1 tab PO Q4H PRN 04/02/18 Dcpododaoaciz-Wrau-Ncnjtnrkfp [Fioricet] 1 ea PO Q8H PRN #10 tab 08/03/18 Albuterol Inhaler [Ventolin Hfa Inhaler] 1 puff INH PRN 08/03/18 Zolpidem Tartrate [Ambien] 10 mg PO BEDTIME 08/03/18 Methylprednisolone [Medrol Dose Sky] 4 mg PO DAILY #1 tab 08/29/18
[2018-08-29] MEDS: ONDANSETRON INJ 4 MG/2 ML VIAL IV ONE (19:55)
[2018-08-29] MEDS: MORPHINE SULFATE INJ 10 MG/ML VIAL IV ONE (19:56)
--- NOTE | 2018-08-29 20:41 | CT ---
EXAM: Abdomen/Pelvis w/Contrast CLINICAL INDICATION: Right lower quadrant pain COMPARISON: 05/26/2018 TECHNIQUE: The CT scan was done using contiguous axial 5 mm postcontrast sections through the abdomen and pelvis including IV contrast. This exam was performed according to our departmental dose-optimization program, which includes automated exposure control, adjustment of the mA and/or kV according to patient size and/or use of iterative reconstruction technique. FINDINGS: The visualized portions of the lung bases are clear. The gallbladder is surgically absent. The liver, kidneys, adrenal glands, spleen, and pancreas have a normal CT appearance. The aorta is normal in caliber. There are no dilated loops of small bowel. The appendix is normal. There is no free air, free fluid, or abscess. IMPRESSION: No evidence of an acute intra-abdominal process. Electronically signed by: Anjel Metcalf MD 08/29/2018 8:38 PM CDT
[2018-08-29] MEDS: methylPREDNISolone ACETATE 80 MG/ML VIAL IM ONE (22:02)
[2018-08-29 22:11] VITALS: BP 142/86; O2SAT 95
== END 2018-08-29 22:10 | disposition home or self-care (01) ==
LOC: ER 18:43
DX: R10.31 Right lower quadrant pain (principal); R11.2 Nausea with vomiting, unspecified; R56.9 Unspecified convulsions; Z90.710 Acquired absence of both cervix and uterus; Z90.49 Acquired absence of other specified parts of digestive tract; Z79.899 Other long term (current) drug therapy; Z88.1 Allergy status to other antibiotic agents; Z88.5 Allergy status to narcotic agent; Z88.8 Allergy status to other drugs, medicaments and biological substances; Z88.6 Allergy status to analgesic agent
CPT/HCPCS: 36415; 74177; 80053; 81001; 83690; 84703; 85025; J1030; J2270; J2405

== ENCOUNTER 2018-09-07 04:59 | Emergency (ER) | payer OTHER ==
--- NOTE | 2018-09-07 05:24 | ED.PDOC ---
History of Present Illness - General Chief Complaint: Abdominal Pain Stated Complaint: sbd pain since 08/29, n/v Time Seen by Provider: 09/07/18 05:12 Information Source: patient Exam Limitations: no limitations - History of Present Illness Initial Comments: Betsey Rowan 33 y/o female brought by EMS to ER with stabbing lower abdominal pain,watery diarrhea,N/V since 29 August 2018 no fever ,no chills no vomiting noted in ER.Seen here 29 August 2018 and all her lab test not showing abnormalities and had CT Abd/Pelvis with contrast showed no evidence of acute intrabdominal process.Stated ate boiled lobster last night bought it at [employer]. Abdominal Pain Onset Location: other - lower abdomen Pain Radiation: no radiation Quality: stabbing, waxing/waning Timing/Duration: days - 9 Improving Factors: nothing Worsening Factors: eating Associated Symptoms: other - see hpi Review of Systems - Review of Systems Constitutional: States: no symptoms reported EENTM: States: no symptoms reported Respiratory: States: no symptoms reported Cardiology: States: no symptoms reported Gastrointestinal/Abdominal: States: see HPI, diarrhea, vomiting Genitourinary: States: no symptoms reported Musculoskeletal: States: no symptoms reported Skin: States: no symptoms reported All other Systems: Reviewed and Negative, No Change from Baseline Past Medical History (General) - Patient Medical History Hx Seizures: Yes Hx Stroke: No Hx Dementia: No Hx Asthma: Yes Hx of COPD: No Hx Cardiac Disorders: No Hx Congestive Heart Failure: No Hx Pacemaker: No Hx Hypertension: No Hx Thyroid Disease: No Hx Diabetes: No Hx Gastroesophageal Reflux: No Hx Renal Disease: No Hx Cancer: No Hx of HIV: No Hx Hepatitis C: No Hx MRSA: No Surgical History: cholecystectomy, other - hysterectomy - Vaccination History Hx Tetanus, Diphtheria Vaccination: No Hx Influenza Vaccination: No Hx Pneumococcal Vaccination: No - Social History Hx Tobacco Use: No Hx Chewing Tobacco Use: No Hx Alcohol Use: No Hx Substance Use: No Hx Substance Use Treatment: No Hx Depression: No Hx Physical Abuse: No Hx Emotional Abuse: No Hx Suspected Abuse: No - Female History Patient : No - hysterectomy Family Medical History - Family History Mother Family History: Unknown Hx Family Asthma: Yes - child Hx Family Cancer: Yes - breast-sister Physical Exam - Physical Exam General Appearance: Alert, Comfortable, No apparent distress Eyes, Ears, Nose, Throat Exam: PERRL/EOMI, normal ENT inspection Neck: non-tender, supple, normal inspection Respiratory: chest non-tender, lungs clear, normal breath sounds Cardiovascular/Chest: normal peripheral pulses, regular rate, rhythm, no murmur Peripheral Pulses: No deficit Gastrointestinal/Abdominal: soft, tenderness - lower abdomen no peritoneal signs Back Exam: no CVA tenderness, no vertebral tenderness Extremity: no pedal edema, no calf tenderness Neurologic: alert, oriented x 3 Skin Exam: normal color, warm/dry Progress - Progress Progress: 09/07/18 06:22 Vital Signs - 8 hr 09/07/18 09/07/18 05:05 06:17 Temperature 97.9 F Pulse Rate [ 90 83 monitor] Respiratory 19 20 Rate Blood Pressure 135/93 112/86 [Left Arm] O2 Sat by Pulse 94 L 96 Oximetry - Results/Orders Results/Orders: 09/07/18 05:25 IV Care:Saline Lock per Protoc QSHIFT 09/07/18 05:41 CLOSTRIDIUM DIFFICILE AG/TOXIN Urgent Laboratory Results - last 24 hr 09/07/18 09/07/18 09/07/18 05:09 06:00 06:00 WBC 9.4 RBC 4.86 Hgb 13.4 Hct 41.0 MCV 84.3 MCH 27.5 MCHC 32.7 L RDW 14.2 Plt Count 280 MPV 8.2 Absolute Neuts (auto) 6.30 Absolute Lymphs (auto) 2.30 Absolute Monos (auto) 0.60 Absolute Eos (auto) 0.10 Absolute Basos (auto) 0.00 Neutrophils % 67.5 Lymphocytes % 24.1 Monocytes % 6.9 Eosinophils % 1.0 Basophils % 0.5 Sodium 139 Potassium 3.7 Chloride 104 Carbon Dioxide 24 Anion Gap 14.7 BUN 20 H Creatinine 0.67 BUN/Creatinine Ratio 29.9 H Random Glucose 104 Serum Osmolality 280.5 Calcium 9.3 Total Bilirubin 0.4 AST 32 ALT 49 Alkaline Phosphatase 119 Serum Total Protein 7.6 Albumin 3.6 Globulin 4.0 H Albumin/Globulin Ratio 0.9 L Urine Color Yellow Urine Appearance Clear Urine pH 5.5 Ur Specific [place] >= 1.030 Urine Protein Negative Urine Glucose (UA) Negative Urine Ketones Negative Urine Blood Negative Urine Nitrite Negative Urine Bilirubin Negative Urine Urobilinogen 0.2 Ur Leukocyte Esterase Negative Urine RBC 0 Urine WBC 1-3 Ur Epithelial Cells 5-10 Urine Bacteria 2+ H Discuss all test results with patient;unable to give stool sample advised to follow up with primary Md in [place], [place] for Gastroenterology consult Departure - Departure Clinical Impression: Nausea vomiting and diarrhea Abdominal pain Qualifiers: Abdominal location: lower abdomen, unspecified Qualified Code(s): R10.30 - Lower abdominal pain, unspecified Time of Disposition: 06:28 Disposition: Discharge to Home or Self Care Condition: Fair Departure Forms: ED Discharge - Pt. Copy, Patient Portal Self Enrollment Instructions: DI for Abdominal Pain-Adult, Diarrhea in Adolescents and Adults Diet: other - Avoid greasy /spicy foods Referrals: Rach Howard, [employer] ASSISTANT [Primary Care Provider] - 1-2 Weeks Home Medications: Ambulatory Orders carBAMazepine [TEGretol] 300 mg PO TID 01/08/18 Buspirone HCl 15 mg PO BID 04/02/18 HYDROcodone 5MG/APAP 325MG [[place] 5/325] 1 tab PO Q4H PRN 04/02/18 Lssmafxjkrgkj-Mqvr-Nnnbplkiis [Fioricet] 1 ea PO Q8H PRN #10 tab 08/03/18 Albuterol Inhaler [Ventolin Hfa Inhaler] 1 puff INH PRN 08/03/18 Zolpidem Tartrate [Ambien] 10 mg PO BEDTIME 08/03/18 Methylprednisolone [Medrol Dose Sky] 4 mg PO DAILY #1 tab 08/29/18 Additional Instructions: Continue with all home medications;May take over the counter Probiotics-one capsule daily;Follow up with primary Md- Dr. Bond for referral to [facility]
[2018-09-07 05:34] VITALS: TEMP 97.9
[2018-09-07] MEDS ORDERED: MORPHINE SULFATE INJ 10 MG/ML VIAL IV ONE (05:41)
[2018-09-07] MEDS ORDERED: PROMETHAZINE HCL INJ 25 MG/ML VIAL IM ONE (05:41)
[2018-09-07 06:19] VITALS: O2SAT 96
[2018-09-07 06:53] VITALS: BP 128/82
== END 2018-09-07 06:53 | disposition home or self-care (01) ==
LOC: ER 04:59
DX: R10.30 Lower abdominal pain, unspecified (principal); R11.2 Nausea with vomiting, unspecified; R19.7 Diarrhea, unspecified; J45.909 Unspecified asthma, uncomplicated; R56.9 Unspecified convulsions; Z90.49 Acquired absence of other specified parts of digestive tract
CPT/HCPCS: 36415; 80053; 81001; 85025; J2270; J2550

== ENCOUNTER 2018-09-09 20:19 | Emergency (ER) | payer OTHER ==
--- NOTE | 2018-09-09 20:35 | ED.PDOC ---
History of Present Illness - General Chief Complaint: Lower Extremity Injury Stated Complaint: right leg pain Time Seen by Provider: 09/09/18 20:32 Source: patient Exam Limitations: no limitations - History of Present Illness Initial Comments: Betsey Rowan 33 y/o female stated she fell off the stairs in her apartment about 1730 H today after she and rolled down 3 steps able to brace herself with her left outstretch hand but landed on her face.Denies neck pains wrist pains,headache,blurry vision,back pains,hip pains but hurts on her right ankle and leg.While she was in her room she was noted to be holding her cellphone well with left hand and was texting. Occurred: this afternoon Pain - Lower Extremity: moderate: Right Leg, Right Ankle, Right Foot Method of Injury: fell Improving Factors: rest Worsening Factors: movement Associated Symptoms: pain Allergies/Adverse Reactions: Allergies Aspirin Allergy (Verified 04/12/18 22:25) Azithromycin Allergy (Verified 06/19/18 00:28) Ibuprofen Allergy (Verified 04/12/18 22:25) Ketorolac Tromethamine [From Toradol] Allergy (Verified 04/12/18 22:25) Levofloxacin [From Levaquin] Allergy (Verified 04/12/18 22:25) Phenytoin [From Dilantin] Allergy (Verified 04/12/18 22:25) Tramadol Allergy (Verified 04/12/18 22:25) Vancomycin Allergy (Verified 04/12/18 22:25) Home Medications: Ambulatory Orders carBAMazepine [TEGretol] 300 mg PO TID 01/08/18 Buspirone HCl 15 mg PO BID 04/02/18 HYDROcodone 5MG/APAP 325MG [[place] 5/325] 1 tab PO Q4H PRN 04/02/18 Pzngtcevtasyq-Grog-Irxrxlalgk [Fioricet] 1 ea PO Q8H PRN #10 tab 08/03/18 Albuterol Inhaler [Ventolin Hfa Inhaler] 1 puff INH PRN 08/03/18 Zolpidem Tartrate [Ambien] 10 mg PO BEDTIME 08/03/18 Methylprednisolone [Medrol Dose Sky] 4 mg PO DAILY #1 tab 08/29/18 Acetamin W/Cod #3 Tab [Tylenol w/CODEINE #3] 1 ea PO BID #2 tab 09/09/18 Methocarbamol [Robaxin] 750 mg PO TID #3 tab 09/09/18 Review of Systems - Review of Systems Musculoskeletal: States: see HPI All other Systems: Reviewed and Negative, No Change from Baseline Past Medical History (General) - Patient Medical History Hx Seizures: Yes Hx Stroke: No Hx Dementia: No Hx Asthma: Yes Hx of COPD: No Hx Cardiac Disorders: No Hx Congestive Heart Failure: No Hx Pacemaker: No Hx Hypertension: No Hx Thyroid Disease: No Hx Diabetes: No Hx Gastroesophageal Reflux: No Hx Renal Disease: No Hx Cancer: No Hx of HIV: No Hx Hepatitis C: No Hx MRSA: No Surgical History: cholecystectomy, other - hysterectomy - Vaccination History Hx Tetanus, Diphtheria Vaccination: No Hx Influenza Vaccination: No Hx Pneumococcal Vaccination: No - Social History Hx Tobacco Use: No Hx Chewing Tobacco Use: No Hx Alcohol Use: No Hx Substance Use: No Hx Substance Use Treatment: No Hx Depression: No Hx Physical Abuse: No Hx Emotional Abuse: No Hx Suspected Abuse: No - Female History Patient : No - hysterectomy Family Medical History - Family History Mother Family History: Unknown Living Status: Hx Family Asthma: Yes - child Hx Family Cancer: Yes - breast-sister Physical Exam - Physical Exam General Appearance: Alert, Comfortable, No apparent distress Eyes, Ears, Nose, Throat: normal ENT inspection Neck: non-tender, full range of motion, supple, normal inspection Cardiovascular/Respiratory: regular rate, rhythm, normal peripheral pulses, normal breath sounds, no respiratory distress Gastrointestinal/Abdominal: non-tender Back: normal inspection, no CVA tenderness, no vertebral tenderness Thigh/Hip: normal inspection, non-tender, no evidence of injury Leg: normal inspection, non-tender, no evidence of injury Knee: normal inspection, non-tender, no evidence of injury, normal ROM Ankle: limited ROM - pain right ankle, pain, soft tissue tenderness - right ankle Foot: bone tenderness - right foot Neuro/Tendon: normal sensation, normal motor functions, normal tendon functions, responds to pain, no evidence tendon injury Mental Status: alert, oriented x 3 Skin: normal color, warm/dry Progress - Progress Progress: 09/09/18 21:02 Vital Signs - 8 hr 09/09/18 20:37 Temperature 97.7 F Pulse Rate [ 112 H pulse ox] Respiratory 20 Rate Blood Pressure 147/95 [Right Arm] O2 Sat by Pulse 99 Oximetry - EKG/XRAY/CT XRAY: leg - right-knee,tib fib,ankle no fracture noted Departure - Departure Clinical Impression: Fall (on) (from) other stairs and steps, initial encounter, Pain of right lower extremity due to injury Time of Disposition: 21:18 Disposition: Discharge to Home or Self Care Condition: Fair Departure Forms: ED Discharge - Pt. Copy, Patient Portal Self Enrollment Prescriptions: Acetamin W/Cod #3 Tab [Tylenol w/CODEINE #3] 1 ea PO BID #2 tab Methocarbamol [Robaxin] 750 mg PO TID #3 tab Home Medications: Ambulatory Orders carBAMazepine [TEGretol] 300 mg PO TID 01/08/18 Buspirone HCl 15 mg PO BID 04/02/18 HYDROcodone 5MG/APAP 325MG [[place] 5/325] 1 tab PO Q4H PRN 04/02/18 Dajbcceaxjnzm-Rmnv-Uqcczqrref [Fioricet] 1 ea PO Q8H PRN #10 tab 08/03/18 Albuterol Inhaler [Ventolin Hfa Inhaler] 1 puff INH PRN 08/03/18 Zolpidem Tartrate [Ambien] 10 mg PO BEDTIME 08/03/18 Methylprednisolone [Medrol Dose Sky] 4 mg PO DAILY #1 tab 08/29/18 Acetamin W/Cod #3 Tab [Tylenol w/CODEINE #3] 1 ea PO BID #2 tab 09/09/18 Methocarbamol [Robaxin] 750 mg PO TID #3 tab 09/09/18 Additional Instructions: continue with ice pack 20 minutes 3 x a day DURING WAKING HOURS ONLY UNTIL BETTER;Follow up with primary Md for recheck 12 September 2018
[2018-09-09 20:52] VITALS: TEMP 97.7; O2SAT 99
--- NOTE | 2018-09-09 21:06 | RAD ---
EXAM: Ankle,Right 2 Views CLINICAL INDICATION: Right ankle pain COMPARISON: There is no previous study for comparison. FINDINGS: 2 views of the right ankle reveal no fracture. The ankle mortise and talar dome are intact. The osseous structures appear intact and unremarkable. No radiopaque foreign bodies are identified. There is no bony destruction to suggest osteomyelitis. IMPRESSION: Negative right ankle radiographs. Electronically signed by: Anjel Metcalf MD 09/09/2018 9:04 PM CDT
--- NOTE | 2018-09-09 21:07 | RAD ---
EXAM: Knee,Right 2 or More Views CLINICAL INDICATION: Right knee pain COMPARISON: There is no previous study for comparison. FINDINGS: 2 views of the right knee reveal no evidence of fracture. There is no knee joint effusion. No significant degenerative joint disease is identified. The osseous structures are intact and unremarkable. IMPRESSION: Negative right knee radiographs. Electronically signed by: Anjel Metcalf MD 09/09/2018 9:05 PM CDT
--- NOTE | 2018-09-09 21:08 | RAD ---
EXAM: Tibia/Fibula,Right CLINICAL INDICATION: Right leg pain COMPARISON: There is no previous study for comparison. FINDINGS: 2 views of the right tibia/fibula reveal no evidence of any fracture. The osseous structures appear intact and unremarkable. There are no radiopaque foreign bodies. IMPRESSION: Normal right tibia/fibula radiographs. Electronically signed by: Anjel Metcalf MD 09/09/2018 9:05 PM CDT
[2018-09-09] MEDS ORDERED: HYDROCOD/APAP 5/325 (ER DISP) #3 TAB PO ONE (21:18)
[2018-09-09] MEDS ORDERED: HYDROcodone 5MG/APAP 325MG 1 EA TAB PO ONE (21:18)
[2018-09-09] MEDS ORDERED: METHOCARBAMOL 750 MG TAB PO ONE (21:19)
[2018-09-09 21:29] VITALS: BP 142/80
== END 2018-09-09 21:29 | disposition home or self-care (01) ==
LOC: ER 20:19
DX: S89.91XA Unspecified injury of right lower leg, initial encounter (principal); J45.909 Unspecified asthma, uncomplicated; R56.9 Unspecified convulsions; W10.9XXA Fall (on) (from) unspecified stairs and steps, initial encounter; Y92.039 Unspecified place in apartment as the place of occurrence of the external cause; Z88.6 Allergy status to analgesic agent; Z88.1 Allergy status to other antibiotic agents; Z88.8 Allergy status to other drugs, medicaments and biological substances; Z88.5 Allergy status to narcotic agent

== ENCOUNTER 2018-09-23 11:48 | Emergency (ER) | payer OTHER ==
[2018-09-23] MEDS ORDERED: ACETAMINOPHEN 500 MG TAB PO ONE (12:57)
--- NOTE | 2018-09-23 12:58 | ED.PDOC ---
History of Present Illness - General Chief Complaint: General Stated Complaint: Pt slammed R foot in car door, seizure last night Time Seen by Provider: 09/23/18 12:50 Source: patient Exam Limitations: no limitations - History of Present Illness Initial Comments: PT STATES SHE HAD SZ LAST NIGHT B/C SHE WOKE UP AND HAD BEEN INCONTINENT AND HAD A AGUERO. PT HAS BEEN NON COMPLIANT WITH HER TEGRETOL. HAS NOT BEEN TAKING FOR A LEAST A WEEK. REVIEW OF RECORDS SHOWS PT VERY FREQUENT VISITOR TO THIS ED. ALSO WANTS HER FOOT CHECKED B/C SHE SHUT IT IN THE DOOR ON THE WAY HERE. Severity: mild Improving Factors: nothing Worsening Factors: other - AMBULATION Associated Symptoms: other - AGUERO Allergies/Adverse Reactions: Allergies Aspirin Allergy (Verified 04/12/18 22:25) Azithromycin Allergy (Verified 06/19/18 00:28) Ibuprofen Allergy (Verified 04/12/18 22:25) Ketorolac Tromethamine [From Toradol] Allergy (Verified 04/12/18 22:25) Levofloxacin [From Levaquin] Allergy (Verified 04/12/18 22:25) Phenytoin [From Dilantin] Allergy (Verified 04/12/18 22:25) Tramadol Allergy (Verified 04/12/18 22:25) Vancomycin Allergy (Verified 04/12/18 22:25) Home Medications: Ambulatory Orders carBAMazepine [TEGretol] 300 mg PO TID 01/08/18 Buspirone HCl 15 mg PO BID 04/02/18 HYDROcodone 5MG/APAP 325MG [[place] 5/325] 1 tab PO Q4H PRN 04/02/18 Rwsonyvcfsxue-Oxcm-Etbcurxhbg [Fioricet] 1 ea PO Q8H PRN #10 tab 08/03/18 Albuterol Inhaler [Ventolin Hfa Inhaler] 1 puff INH PRN 08/03/18 Zolpidem Tartrate [Ambien] 10 mg PO BEDTIME 08/03/18 Methylprednisolone [Medrol Dose Sky] 4 mg PO DAILY #1 tab 08/29/18 Acetamin W/Cod #3 Tab [Tylenol w/CODEINE #3] 1 ea PO BID #2 tab 09/09/18 Methocarbamol [Robaxin] 750 mg PO TID #3 tab 09/09/18 Review of Systems - Review of Systems Constitutional: Denies: chills, fever EENTM: States: no symptoms reported Respiratory: Denies: cough, short of breath Cardiology: Denies: chest pain, palpitations Gastrointestinal/Abdominal: Denies: nausea, vomiting Genitourinary: States: no symptoms reported Musculoskeletal: States: other - R FOOT PAIN. Denies: back pain, neck pain Skin: States: other - SWELLING, NO ECCHYMOSIS Neurological: States: headache. Denies: numbness, paresthesia, weakness Endocrine: States: no symptoms reported Hematologic/Lymphatic: States: no symptoms reported Past Medical History (General) - Patient Medical History Hx Seizures: Yes Hx Stroke: Yes - 2017 Hx Dementia: No Hx Asthma: Yes Hx of COPD: No Hx Cardiac Disorders: No Hx Congestive Heart Failure: No Hx Pacemaker: No Hx Hypertension: No Hx Thyroid Disease: No Hx Diabetes: No Hx Gastroesophageal Reflux: No Hx Renal Disease: No Hx Cancer: No Hx of HIV: No Hx Hepatitis C: No Hx MRSA: No Surgical History: cholecystectomy, Hysterectomy - Vaccination History Hx Tetanus, Diphtheria Vaccination: Yes Hx Influenza Vaccination: No Hx Pneumococcal Vaccination: No - Social History Hx Tobacco Use: No Hx Chewing Tobacco Use: No Hx Alcohol Use: No Hx Substance Use: No Hx Substance Use Treatment: No Hx Depression: Yes Hx Physical Abuse: No Hx Emotional Abuse: No Hx Suspected Abuse: No - Female History Patient is a Female of Child Bearing Age (10 -59 yrs old): Yes Patient : No - Hysterectomy Family Medical History - Family History Mother Family History: Unknown Living Status: Hx Family Asthma: Yes - child Hx Family Cancer: Yes - breast-sister Physical Exam - Physical Exam General Appearance: Alert, No apparent distress, Obese Eye Exam: bilateral normal Ears, Nose, Throat: hearing grossly normal, normal ENT inspection Neck: non-tender, full range of motion, supple Respiratory: lungs clear, normal breath sounds Cardiovascular/Chest: regular rate, rhythm, no murmur Gastrointestinal/Abdominal: normal bowel sounds, non tender, soft, no organomegaly Back Exam: normal inspection, no CVA tenderness Extremity: normal range of motion, non-tender, other - MILD TTP LATERAL ASPECT R FOOT. NO INSTABILITY, NVI, NO BONY ABN/DEF, NO TENDON DYSFUNCTION Neurologic: no motor/sensory deficits, alert, normal mood/affect Skin Exam: normal color, warm/dry Lymphatic: no adenopathy Progress - Progress Progress: 09/23/18 13:58 HAVE REVIEWED PT'S OLD RECORDS HAS HAD BLOOD DRAWN TWICE THIS MONTH BOTH OF WHICH WERE ESSENTIALLY NL. Departure - Departure Clinical Impression: Non-compliance, Seizure disorder Head ache Qualifiers: Headache type: unspecified Headache chronicity pattern: acute headache Intractability: not intractable Qualified Code(s): R51 - Headache Contusion of foot, right Qualifiers: Encounter type: initial encounter Qualified Code(s): S90.31XA - Contusion of right foot, initial encounter Time of Disposition: 14:03 Disposition: Discharge to Home or Self Care Condition: Good Departure Forms: ED Discharge - Pt. Copy, Patient Portal Self Enrollment Instructions: Contusion (DC), Seizures, Adult (DC) Home Medications: Ambulatory Orders carBAMazepine [TEGretol] 300 mg PO TID 01/08/18 Buspirone HCl 15 mg PO BID 04/02/18 HYDROcodone 5MG/APAP 325MG [[place] 5/325] 1 tab PO Q4H PRN 04/02/18 Nbtzyaxkuaihs-Dtsl-Srrkjeogze [Fioricet] 1 ea PO Q8H PRN #10 tab 08/03/18 Albuterol Inhaler [Ventolin Hfa Inhaler] 1 puff INH PRN 08/03/18 Zolpidem Tartrate [Ambien] 10 mg PO BEDTIME 08/03/18 Methylprednisolone [Medrol Dose Sky] 4 mg PO DAILY #1 tab 08/29/18 Acetamin W/Cod #3 Tab [Tylenol w/CODEINE #3] 1 ea PO BID #2 tab 09/09/18 Methocarbamol [Robaxin] 750 mg PO TID #3 tab 09/09/18
--- NOTE | 2018-09-23 13:23 | RAD ---
CLINICAL HISTORY: 33 years Female SLAMMED FOOT IN DOOR COMPARISON: None TECHNIQUE: AP, lateral and oblique views of the [] foot are obtained. FINDINGS: OSSEOUS: There is no evidence of acute fracture or osteolytic/osteoblastic lesions. There is no evidence of subluxation or dislocation. The joint spaces are preserved. Minimal osteoarthritic marginal osteophytosis noted in the first MTP joint and tibiotalar joint anteriorly. There is no evidence of marginal erosive changes to suggest an inflammatory arthritis. The ankle mortise is symmetric with a smooth talar dome and no evidence of widening of the distal tibiofibular syndesmosis. SOFT TISSUES: There is no significant soft tissue swelling or mass. No evidence of significant soft tissue calcifications. No radiopaque foreign bodies. There is no evidence of an ankle joint effusion. IMPRESSION: No acute osseous abnormality. Remainder of findings as described above. Electronically signed by: Dana Santana MD 09/23/2018 1:21 PM CDT
[2018-09-23 14:13] VITALS: BP 113/70; TEMP 96.3; O2SAT 95
== END 2018-09-23 14:13 | disposition home or self-care (01) ==
LOC: ER 11:48
DX: G40.909 Epilepsy, unspecified, not intractable, without status epilepticus (principal); S90.31XA Contusion of right foot, initial encounter; R51 Headache; J45.909 Unspecified asthma, uncomplicated; F32.9 Major depressive disorder, single episode, unspecified; Z91.14 Patient's other noncompliance with medication regimen; Z79.899 Other long term (current) drug therapy; Z86.73 Personal history of transient ischemic attack (TIA), and cerebral infarction without residual deficits; W23.0XXA Caught, crushed, jammed, or pinched between moving objects, initial encounter; Y92.810 Car as the place of occurrence of the external cause

== ENCOUNTER 2018-09-27 02:16 | Emergency (ER) | payer OTHER ==
[2018-09-27 02:23] VITALS: TEMP 98
[2018-09-27] MEDS ORDERED: diphenhydrAMINE HCL 25 MG CAP PO ONE (03:12)
[2018-09-27] MEDS ORDERED: predniSONE 10 MG TAB PO ONE (03:12)
--- NOTE | 2018-09-27 03:12 | ED.PDOC ---
History of Present Illness - General Chief Complaint: Abdominal Pain Stated Complaint: abdomnal pain Time Seen by Provider: 09/27/18 02:39 Information Source: patient Exam Limitations: no limitations - History of Present Illness Initial Comments: Betsey Rowan 33 y/o female brought by EMS to ER with intermittent left sided flank pain radiating to left lower abdomen the last 3 days stated had passed out small dark hard material after urinating about 1 1/2 hours ago and had recurrence of pain was given Morphine and zofran by ems and developed welps injection site right forearm.No n/v;no hematuria,no dysuria no anorexia. Abdominal Pain Onset Location: flank - left Pain Radiation: LLQ Quality: intermittent, sharpness Timing/Duration: days - 3 Improving Factors: nothing Worsening Factors: nothing Associated Symptoms: other - see hpi Review of Systems - Review of Systems Gastrointestinal/Abdominal: States: other - flank pain Past Medical History (General) - Patient Medical History Hx Seizures: Yes Hx Stroke: Yes - 2017 Hx Dementia: No Hx Asthma: Yes Hx of COPD: No Hx Cardiac Disorders: No Hx Congestive Heart Failure: No Hx Pacemaker: No Hx Hypertension: No Hx Thyroid Disease: No Hx Diabetes: No Hx Gastroesophageal Reflux: No Hx Renal Disease: No Hx Cancer: No Hx of HIV: No Hx Hepatitis C: No Hx MRSA: No Surgical History: cholecystectomy, other - hysterectomy - Vaccination History Hx Tetanus, Diphtheria Vaccination: Yes Hx Influenza Vaccination: No Hx Pneumococcal Vaccination: No Immunizations Up to Date: No - Social History Hx Tobacco Use: No Hx Chewing Tobacco Use: No Hx Alcohol Use: No Hx Substance Use: No Hx Substance Use Treatment: No Hx Depression: Yes Hx Physical Abuse: No Hx Emotional Abuse: No Hx Suspected Abuse: No - Female History Patient is a Female of Child Bearing Age (10 -59 yrs old): No Patient : No - Hysterectomy Family Medical History - Family History Mother Family History: Unknown Living Status: Hx Family Asthma: Yes - child Hx Family Cancer: Yes - breast-sister Physical Exam - Physical Exam General Appearance: Alert, Comfortable, No apparent distress Eyes, Ears, Nose, Throat Exam: normal ENT inspection Neck: supple, normal inspection Respiratory: chest non-tender, lungs clear, normal breath sounds, no respiratory distress Cardiovascular/Chest: normal peripheral pulses, regular rate, rhythm, no murmur Peripheral Pulses: No deficit Gastrointestinal/Abdominal: soft, tenderness - left flank Back Exam: CVA tenderness (L) Extremity: no pedal edema, no calf tenderness Neurologic: alert, oriented x 3 Skin Exam: warm/dry Lymphatic: no adenopathy Special Observations: Using mobile device Progress - Progress Progress: 09/27/18 03:23 Vital Signs - 8 hr 09/27/18 02:21 Temperature 98.0 F Pulse Rate [ 60 Left Brachial] Respiratory 20 Rate Blood Pressure 142/87 [Left Arm] O2 Sat by Pulse 97 Oximetry - Results/Orders Results/Orders: Laboratory Results - last 24 hr 09/27/18 03:25 Urine Color Yellow Urine Appearance Clear Urine pH 6.5 Ur Specific [place] 1.025 Urine Protein Negative Urine Glucose (UA) Negative Urine Ketones Negative Urine Blood Negative Urine Nitrite Negative Urine Bilirubin Negative Urine Urobilinogen 0.2 Ur Leukocyte Esterase Negative Urine RBC 0 Urine WBC 3-5 H Ur Epithelial Cells 1-3 Urine Bacteria Rare Discuss all test result with patient - EKG/XRAY/CT CT Ordered: Yes - abd/p-no acute findings Departure - Departure Clinical Impression: Acute left flank pain Time of Disposition: 03:59 Disposition: Discharge to Home or Self Care Condition: Good Departure Forms: ED Discharge - Pt. Copy, Patient Portal Self Enrollment Instructions: DI for Abdominal Pain-Adult Prescriptions: Cyclobenzaprine Tab (ER Disp) [Flexeril Tab (ER Dispense)] 10 mg PO BID PRN #14 tab PRN Reason: Muscle Spasms Home Medications: Ambulatory Orders carBAMazepine [TEGretol] 300 mg PO TID 01/08/18 Buspirone HCl 15 mg PO BID 04/02/18 HYDROcodone 5MG/APAP 325MG [[place] 5/325] 1 tab PO Q4H PRN 04/02/18 Llpoapfmpkqfr-Dwmi-Rpaccchvgc [Fioricet] 1 ea PO Q8H PRN #10 tab 08/03/18 Albuterol Inhaler [Ventolin Hfa Inhaler] 1 puff INH PRN 08/03/18 Zolpidem Tartrate [Ambien] 10 mg PO BEDTIME 08/03/18 Methylprednisolone [Medrol Dose Sky] 4 mg PO DAILY #1 tab 08/29/18 Acetamin W/Cod #3 Tab [Tylenol w/CODEINE #3] 1 ea PO BID #2 tab 09/09/18 Methocarbamol [Robaxin] 750 mg PO TID #3 tab 09/09/18 Cyclobenzaprine Tab (ER Disp) [Flexeril Tab (ER Dispense)] 10 mg PO BID PRN #14 tab 09/27/18 Additional Instructions: Followup with primary Md 02 October 2018 for recheck
--- NOTE | 2018-09-27 03:45 | CT ---
EXAM: CT Abdomen and Pelvis Without Intravenous Contrast CLINICAL HISTORY: The patient is 33 years old and is Female; flank pain/history of nephrolithiasis TECHNIQUE: Axial computed tomography images of the abdomen and pelvis without intravenous contrast. Sagittal and coronal reformatted images were created and reviewed. This CT exam was performed using one or more of the following dose reduction techniques: automated exposure control, adjustment of the mA and/or kV according to patient size, and/or use of iterative reconstruction technique. COMPARISON: CT abdomen and pelvis August 29, 2018. FINDINGS: LUNG BASES: Unremarkable. No mass. No consolidation. ABDOMEN: LIVER: There is a diffuse decrease in hepatic parenchymal density, consistent with fatty infiltration. GALLBLADDER AND BILE DUCTS: Surgical clips are present in the right upper quadrant, consistent with previous cholecystectomy. PANCREAS: Unremarkable. No ductal dilation. SPLEEN: Unremarkable. ADRENALS: Unremarkable. No mass. KIDNEYS AND URETERS: No obstructing stones. No hydronephrosis. STOMACH AND BOWEL: The stomach is distended with food contents. The small bowel is normal in caliber. Moderate amount stool is present throughout the colon. There is no mucosal thickening or evidence of bowel obstruction. PELVIS: APPENDIX: The appendix is normal in caliber without surrounding inflammation. BLADDER: Unremarkable. No stones. REPRODUCTIVE: The patient is status post hysterectomy. ABDOMEN and PELVIS: INTRAPERITONEAL SPACE: Unremarkable. No free air. No significant fluid collection. BONES/JOINTS: No acute fracture. SOFT TISSUES: The soft tissues are normal. VASCULATURE: Unremarkable. No abdominal aortic aneurysm. LYMPH NODES: Unremarkable. No enlarged lymph nodes. IMPRESSION: No acute findings on this noncontrasted CT of the abdomen and pelvis to explain the patient's symptoms. Electronically signed by: Gloria Bazan MD 09/27/2018 3:43 AM CDT
[2018-09-27] MEDS ORDERED: HYDROcodone 5MG/APAP 325MG 1 EA TAB PO ONE (03:57)
[2018-09-27] MEDS ORDERED: BACLOFEN 10 MG TAB PO ONE (03:58)
[2018-09-27 05:01] VITALS: BP 132/87; O2SAT 95
== END 2018-09-27 05:00 | disposition home or self-care (01) ==
LOC: ER 02:16
DX: R10.32 Left lower quadrant pain (principal); F32.9 Major depressive disorder, single episode, unspecified; R56.9 Unspecified convulsions; J45.909 Unspecified asthma, uncomplicated; Z86.73 Personal history of transient ischemic attack (TIA), and cerebral infarction without residual deficits; Z90.49 Acquired absence of other specified parts of digestive tract; Z90.710 Acquired absence of both cervix and uterus
CPT/HCPCS: 74176; 81001; J7512; Q0163

== ENCOUNTER 2018-10-08 11:55 | Observation (INO) | payer OTHER ==
--- NOTE | 2018-10-08 12:15 | ED.PDOC ---
History of Present Illness - General Chief Complaint: Neuro Symptoms/Deficits Stated Complaint: L sided weakness Time Seen by Provider: 10/08/18 12:03 Source: patient, family, EMS Exam Limitations: no limitations - History of Present Illness Initial Comments: patient comes in via EMS for left sided weakness. Patient states she was fine when she went to bed last night but awoke this morning unable to move the left side of her body. Patient states her entire body is numb but she was able to get up and walk leaning against the wall to the bathroom. After that she was sitting up on top of the stairs when EMS arrived. Patient was holding her arm across her stomach and states that she could not move it. She denies any headache, vision change, or altered LOC. She states she can't feel the left side of her face but does not have a facial droop on initial exam. Patient has no slurring of her words is alert and oriented to person place and time. She states that this is how her last pulmonary embolus presented which was a year ago. She took blood thinners for 6 months and then was off the medication. They did not find initial reason for the blood clot although she does have a family history of them she herself does not know that she has any thromboembolic diseases, nor has she had trauma, and she is on control. She has had a Hysterectomy and has a past medical history of seizure disorder. Timing/Duration: unknown - patient awoke with the symptoms 1 hours ago Severity: severe Improving Factors: nothing Worsening Factors: nothing Associated Symptoms: denies symptoms Allergies/Adverse Reactions: Allergies Aspirin Allergy (Verified 10/08/18 15:20) Azithromycin Allergy (Verified 10/08/18 15:20) Ibuprofen Allergy (Verified 10/08/18 15:20) Ketorolac Tromethamine [From Toradol] Allergy (Verified 10/08/18 15:20) Levofloxacin [From Levaquin] Allergy (Verified 10/08/18 15:20) Phenytoin [From Dilantin] Allergy (Verified 10/08/18 15:20) Tramadol Allergy (Verified 10/08/18 15:20) Vancomycin Allergy (Verified 10/08/18 15:20) Home Medications: Ambulatory Orders carBAMazepine [TEGretol] 300 mg PO TID 01/08/18 HYDROcodone 5MG/APAP 325MG [[place] 5/325] 1 tab PO Q4H PRN 04/02/18 Qnpmrwnlpkbcf-Jyvc-Wtotazxtek [Fioricet] 1 ea PO Q8H PRN #10 tab 08/03/18 Albuterol Inhaler [Ventolin Hfa Inhaler] 1 puff INH PRN 08/03/18 Zolpidem Tartrate [Ambien] 10 mg PO BEDTIME 08/03/18 Acetamin W/Cod #3 Tab [Tylenol w/CODEINE #3] 1 ea PO BID #2 tab 09/09/18 Review of Systems - Review of Systems Constitutional: States: no symptoms reported. Denies: chills, fever EENTM: States: no symptoms reported. Denies: eye pain, blurred vision, ear pain, nose pain, throat pain Respiratory: States: no symptoms reported. Denies: cough, short of breath Cardiology: States: no symptoms reported. Denies: chest pain, palpitations Gastrointestinal/Abdominal: States: no symptoms reported. Denies: abdominal pain, nausea, vomiting Genitourinary: States: no symptoms reported. Denies: discharge, dysuria, frequency, hematuria Neurological: States: see HPI, other - dizziness Past Medical History (General) - Patient Medical History Hx Seizures: Yes Hx Stroke: No Hx Dementia: No Hx Asthma: Yes Hx of COPD: No Hx Cardiac Disorders: Yes - Hx PE Hx Congestive Heart Failure: No Hx Pacemaker: No Hx Hypertension: No Hx Thyroid Disease: No Hx Diabetes: No Hx Gastroesophageal Reflux: No Hx Renal Disease: No Hx Cancer: No Hx of HIV: No Hx Hepatitis C: No Hx MRSA: No Surgical History: cholecystectomy, Hysterectomy, other - Vaccination History Hx Tetanus, Diphtheria Vaccination: Yes Hx Influenza Vaccination: No Hx Pneumococcal Vaccination: No - Social History Hx Tobacco Use: No Hx Chewing Tobacco Use: No Hx Alcohol Use: No Hx Substance Use: No Hx Substance Use Treatment: No Hx Depression: Yes Hx Physical Abuse: No Hx Emotional Abuse: No Hx Suspected Abuse: No - Female History Patient : No - Hysterectomy Family Medical History - Family History Mother Family History: Unknown Living Status: Hx Family Asthma: Yes - child Hx Family Cancer: Yes - breast-sister Physical Exam - Physical Exam General Appearance: Alert, Comfortable, No apparent distress Eye Exam: bilateral normal ENT Exam: normal ENT inspection, hearing grossly normal, TMs normal, pharynx normal, nasal congestion Neck: non-tender, full range of motion, supple, normal inspection Respiratory: chest non-tender, lungs clear, normal breath sounds, no respiratory distress Cardiovascular/Chest: normal peripheral pulses, regular rate, rhythm, no edema, no gallop, no JVD, no murmur Peripheral Pulses: radial,right: 2+, radial,left: 2+ Gastrointestinal/Abdominal: normal bowel sounds, non tender, soft Back Exam: normal inspection, no CVA tenderness, no vertebral tenderness Extremities Exam: non-tender, no evidence of injury Mental Status: alert, oriented x 3, 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 A specific localization is difficult with her pattern of weakness and numbeness of the arm and leg. She has no dysarthria, facial droop, numbness of the face. Discussed with environmental protection forester Carole Arzate 10/08/18 15:11 10/08/18 15:13 - Results/Orders Results/Orders: Patient Name: FREDERICK WALTERS Gender: Female Date of : 1985 Referring Physician: ALMA MILLIGAN Organization: [facility] Accession Number: [id number] Requested Date: October 08, 2018 12:11 Report Status: Final Requested Procedure: 1 Procedure Description: Head Modality: CT Findings Reporting MD: Dana Santana Fellow MD: Not available Dictation Time: Powerhouse Operator: Not available Quill Skinner Date: PROCEDURE: CT Head Without Intravenous Contrast CLINICAL INDICATION: The patient is 33 years years old, Female; Left sided weakness TECHNIQUE: Axial computed tomography images of the head/brain without intravenous contrast. Sagittal and coronal reformatted images were created and reviewed. This CT exam was performed using one or more of the following dose reduction techniques: automated exposure control, adjustment of the mA and/or kV according to patient size, and/or use of iterative reconstruction technique. COMPARISON: No relevant prior studies available. FINDINGS: BRAIN: No intracerebral or extracerebral mass lesions are identified. Cummings/white matter distinction is maintained. There is no evidence of intracranial hemorrhage. There are no areas of acute territorial infarct. (It should be noted that acute infarct may not be discernible in the first [address] ) MIDLINE SHIFT: There is no shift of the midline structures. VENTRICLES: The ventricles are normal in size and configuration. BONES/JOINTS: There is no acute calvarial abnormality or other discernible acute osseous abnormalities. SOFT TISSUES: The extracranial soft tissues are unremarkable. SINUSES: The visualized paranasal sinuses are clear. MASTOID AIR CELLS: The mastoids and middle ears are clear. IMPRESSION: 1. No acute intracranial abnormality. A negative head CT does not exclude an acute CVA. A followup head CT or MRI is recommended if neurologic symptoms persist. 2. Remainder of findings as discussed above. 10/08/18 13:06 CTA Chest [CT] Stat Laboratory Results WBC 7.5 K/mm3 (4.8-10.8) 10/08/18 12: RBC 4.88 M/mm3 (4.20-5.40) 10/08/18 12:19 Hgb 13.6 gm/dL (12.0-16.0) 10/08/18 12: Hct 41.5 % (36.0-47.0) 10/08/18 12: MCV 84.9 fl (81.0-99.0) 10/08/18 12: MCH 27.9 pg (27.0-31.0) 10/08/18 12: MCHC 32.9 g/dL (33.0-37.0) L 10/08/18 12:19 RDW 14.3 % (11.5-14.5) 10/08/18 12:19 Plt Count 283 K/mm3 (130-400) 10/08/18 12: MPV 8.3 fl (7.40-10.4) 10/08/18 12:19 Absolute Neuts (auto) 4.30 K/uL (1.8-6.8) 10/08/18 12: Absolute Lymphs (auto) 2.40 K/uL (1.0-3.4) 10/08/18 12:19 Absolute Monos (auto) 0.60 K/uL (0.2-0.8) 10/08/18 12:19 Absolute Eos (auto) 0.20 K/uL (0.0-0.4) 10/08/18 12:19 Absolute Basos (auto) 0.00 K/uL (0.0-0.1) 10/08/18 12:19 Neutrophils % 57.4 % (42.0-78.0) 10/08/18 12:19 Lymphocytes % 32.1 % (20.0-50.0) 10/08/18 12:19 Monocytes % 7.7 % (2.0-9.0) 10/08/18 12: Eosinophils % 2.2 % (1.0-5.0) 10/08/18 12: Basophils % 0.6 % (0.0-2.0) 10/08/18 12:19 PT 8.9 SECONDS (9.0-10.9) L 10/08/18 12:19 INR 0.89 (0.9-1.15) L 10/08/18 12:19 PTT (SP) 23.1 SECONDS (21.8-31.6) 10/08/18 12:19 D-Dimer, Quantitative 0.94 mg/L FEU (0-0.49) H* 10/08/18 12:19 Sodium 139 mmol/L (135-145) 10/08/18 12:19 Potassium 4.3 mmol/L (3.6-5.0) 10/08/18 12:19 Chloride 104 mmol/L (101-111) 10/08/18 12:19 Carbon Dioxide 23 mmol/L (21-31) 10/08/18 12:19 Anion Gap 16.3 (12-18) 10/08/18 12:19 BUN 19 mg/dL (7-18) H 10/08/18 12:19 Creatinine 0.92 mg/dL (0.6-1.3) 10/08/18 12:19 BUN/Creatinine Ratio 20.7 (10-20) H 10/08/18 12:19 Random Glucose 108 mg/dL (70-105) H 10/08/18 12:19 Serum Osmolality 280.3 mOsm/L (275-295) 10/08/18 12:19 Calcium 9.1 mg/dL (8.4-10.2) 10/08/18 12:19 Total Bilirubin 0.3 mg/dL (0.2-1.0) 10/08/18 12:19 AST 18 IU/L (10-42) 10/08/18 12:19 ALT 21 IU/L (10-60) 10/08/18 12:19 Alkaline Phosphatase 121 IU/L (42-121) 10/08/18 12:19 Serum Total Protein 7.5 gm/dL (6.4-8.2) 10/08/18 12:19 Albumin 3.5 g/dl (3.2-5.5) 10/08/18 12:19 Globulin 4.0 gm/dL (2.3-3.5) H 10/08/18 12:19 Albumin/Globulin Ratio 0.9 (1.1-1.9) L 10/08/18 12:19 Patient Name: FREDERICK WALTERS Gender: Female Date of : 1985 Referring Physician: ALMA MILLIGAN Organization: [facility] Accession Number: [id number] Requested Date: October 08, 2018 13:06 Report Status: Corrected Requested Procedure: 1 Procedure Description: CT CHEST ANGIOGRAPHY WITH IV CONTRAST Modality: CT Findings Reporting MD: Marquez Mcgraw MD: Not available Dictation Time: Powerhouse Operator: Not available Quill Skinner Date: ADDENDUM #1 THIS REPORT CONTAINS FINDINGS THAT MAY BE CRITICAL TO PATIENT CARE: The findings were verbally discussed via telephone conference with Dr. ALMA MILLIGAN by Dr. Marquez Mcgraw on 10/08/2018 3:01 PM CDT .The results were acknowledged and understood. Electronically signed by: Marquez Mcgraw MD 10/08/2018 3:01 PM CDT ORIGINAL REPORT PROCEDURE: CT Angiography Chest With Intravenous Contrast CLINICAL INDICATION: The patient is 33 years old and is Female; elevated d-dimer TECHNIQUE: Of note, the patient's IV infiltrated during the scan. Axial computed tomographic angiography images of the chest with intravenous contrast using pulmonary embolism protocol. Sagittal and coronal reformatted images were created and reviewed. Sagittal and coronal reformatted images were created and reviewed. This CT exam was performed using one or more of the following dose reduction techniques: automated exposure control, adjustment of the mA and/or kV according to patient size, and/or use of iterative reconstruction technique. MIP reconstructed images were created and reviewed. COMPARISON: Prior CTA study from 01/16/2018. FINDINGS: PULMONARY ARTERIES: This study is nondiagnostic as I cannot even clear the main pulmonary artery branches with confidence due to lack of opacification. The contrast bolus is markedly suboptimal for this evaluation. AORTA: The thoracic aorta is within normal limits without [facility] [address] [place] [address], [address] [place], [place] T [phone] F [phone] [email or web address] - Report exported on Oct 08, 2018 15:04:95 -[id number] - Page 2 of 3 aneurysm or dissection. GREAT VESSELS OF AORTIC ARCH: Great vessels are unremarkable in appearance. LUNGS: The lungs are clear. No focal consolidation or pulmonary nodules are seen. PLEURAL SPACE: No pleural effusions identified. No pneumothorax. HEART: No pericardial effusion is identified. Heart is enlarged in size. No evidence of RV dysfunction. BONES/JOINTS: Mild S-shaped scoliosis of the thoracic spine. No acute fracture. No dislocation. SOFT TISSUES: Unremarkable. LYMPH NODES: There is no mediastinal, hilar or axillary lymphadenopathy. LIVER: Hepatic steatosis is identified. No intrahepatic lesions are noted. GALLBLADDER AND BILE DUCTS: There are postsurgical changes from prior cholecystectomy in the gallbladder fossa. UPPER ABDOMEN: Fatty infiltration of the LEFT diaphragmatic bijan. IMPRESSION: This study is nondiagnostic as I cannot even clear the main pulmonary artery branches with confidence due to lack of opacification secondary to suboptimal bolus related to IV infiltration. Recommend either a repeat study or VQ scan for better evaluation. If there is extravasation of contrast, please treat per department protocol. Electronically signed by: Marquez Mcgraw MD 10/08/2018 2:51 PM CDT END ADDENDUM PROCEDURE: CT Angiography Chest With Intravenous Contrast CLINICAL INDICATION: The patient is 33 years old and is Female; elevated d-dimer TECHNIQUE: Of note, the patient's IV infiltrated during the scan. Axial computed tomographic angiography images of the chest with intravenous contrast using pulmonary embolism protocol. Sagittal and coronal reformatted images were created and reviewed. Sagittal and coronal reformatted images were created and reviewed. This CT exam was performed using one or more of the following dose reduction techniques: automated exposure control, adjustment of the mA and/or kV according to patient size, and/or use of iterative reconstruction technique. MIP reconstructed images were created and reviewed. COMPARISON: Prior CTA study from 01/16/2018. FINDINGS: PULMONARY ARTERIES: This study is nondiagnostic as I cannot even clear the main pulmonary artery branches with confidence due to lack of opacification. The contrast bolus is markedly suboptimal for this [facility] [address] [place] [address], [address] [place] [address] T [phone] F [phone] [email or web address] - Report exported on Oct 08, 2018 15:04:44 -[id number] - Page 3 of 3 evaluation. AORTA: The thoracic aorta is within normal limits without aneurysm or dissection. GREAT VESSELS OF AORTIC ARCH: Great vessels are unremarkable in appearance. LUNGS: The lungs are clear. No focal consolidation or pulmonary nodules are seen. PLEURAL SPACE: No pleural effusions identified. No pneumothorax. HEART: No pericardial effusion is identified. Heart is enlarged in size. No evidence of RV dysfunction. BONES/JOINTS: Mild S-shaped scoliosis of the thoracic spine. No acute fracture. No dislocation. SOFT TISSUES: Unremarkable. LYMPH NODES: There is no mediastinal, hilar or axillary lymphadenopathy. LIVER: Hepatic steatosis is identified. No intrahepatic lesions are noted. GALLBLADDER AND BILE DUCTS: There are postsurgical changes from prior cholecystectomy in the gallbladder fossa. UPPER ABDOMEN: Fatty infiltration of the LEFT diaphragmatic bijan. IMPRESSION: This study is nondiagnostic as I cannot even clear the main pulmonary artery branches with confidence due to lack of opacification secondary to suboptimal bolus related to IV infiltration. Recommend either a repeat study or VQ scan for better evaluation. If there is extravasation of contrast, please treat per department protocol. Patient Name: FREDERICK WALTERS Gender: Female Date of : 1985 Referring Physician: ALMA MILLIGAN Organization: [facility] Accession Number: [id number] Requested Date: October 08, 2018 12:11 Report Status: Final Requested Procedure: 1 Procedure Description: Head Modality: CT Findings Reporting MD: Dana Santana Fellow MD: Not available Dictation Time: Powerhouse Operator: Not available Quill Skinner Date: PROCEDURE: CT Head Without Intravenous Contrast CLINICAL INDICATION: The patient is 33 years years old, Female; Left sided weakness TECHNIQUE: Axial computed tomography images of the head/brain without intravenous contrast. Sagittal and coronal reformatted images were created and reviewed. This CT exam was performed using one or more of the following dose reduction techniques: automated exposure control, adjustment of the mA and/or kV according to patient size, and/or use of iterative reconstruction technique. COMPARISON: No relevant prior studies available. FINDINGS: BRAIN: No intracerebral or extracerebral mass lesions are identified. Cummings/white matter distinction is maintained. There is no evidence of intracranial hemorrhage. There are no areas of acute territorial infarct. (It should be noted that acute infarct may not be discernible in the first [address] ) MIDLINE SHIFT: There is no shift of the midline structures. VENTRICLES: The ventricles are normal in size and configuration. BONES/JOINTS: There is no acute calvarial abnormality or other discernible acute osseous abnormalities. SOFT TISSUES: The extracranial soft tissues are unremarkable. SINUSES: The visualized paranasal sinuses are clear. MASTOID AIR CELLS: The mastoids and middle ears are clear. IMPRESSION: 1. No acute intracranial abnormality. A negative head CT does not exclude an acute CVA. A followup head CT or MRI is recommended if neurologic symptoms persist. 2. Remainder of findings as discussed above. Electronically signed by: Dana Santana MD 10/08 - EKG/XRAY/CT EKG: Sinus, RBBB - incomplete, no ST T wave changes Comments: HR 89 normal QTC Departure - Departure Clinical Impression: Weakness, Arm paresthesia, left, Left leg paresthesias Disposition: Admit Patient Condition: Good Home Medications: Ambulatory Orders carBAMazepine [TEGretol] 300 mg PO TID 01/08/18 HYDROcodone 5MG/APAP 325MG [[place] 5/325] 1 tab PO Q4H PRN 04/02/18 Yvzkckzsglxpl-Pxmx-Fnrhajcwyd [Fioricet] 1 ea PO Q8H PRN #10 tab 08/03/18 Albuterol Inhaler [Ventolin Hfa Inhaler] 1 puff INH PRN 08/03/18 Zolpidem Tartrate [Ambien] 10 mg PO BEDTIME 08/03/18 Acetamin W/Cod #3 Tab [Tylenol w/CODEINE #3] 1 ea PO BID #2 tab 09/09/18 Decision To Admit - Decistion To Admit Decision to Admit Reason: Admit from ER Decision to Admit Date: 10/08/18 Decision to Admit Time: 15:13
--- NOTE | 2018-10-08 13:46 | CT ---
PROCEDURE: CT Head Without Intravenous Contrast CLINICAL INDICATION: The patient is 33 years years old, Female; Left sided weakness TECHNIQUE: Axial computed tomography images of the head/brain without intravenous contrast. Sagittal and coronal reformatted images were created and reviewed. This CT exam was performed using one or more of the following dose reduction techniques: automated exposure control, adjustment of the mA and/or kV according to patient size, and/or use of iterative reconstruction technique. COMPARISON: No relevant prior studies available. FINDINGS: BRAIN: No intracerebral or extracerebral mass lesions are identified. Cummings/white matter distinction is maintained. There is no evidence of intracranial hemorrhage. There are no areas of acute territorial infarct. (It should be noted that acute infarct may not be discernible in the first [address] ) MIDLINE SHIFT: There is no shift of the midline structures. VENTRICLES: The ventricles are normal in size and configuration. BONES/JOINTS: There is no acute calvarial abnormality or other discernible acute osseous abnormalities. SOFT TISSUES: The extracranial soft tissues are unremarkable. SINUSES: The visualized paranasal sinuses are clear. MASTOID AIR CELLS: The mastoids and middle ears are clear. IMPRESSION: 1. No acute intracranial abnormality. A negative head CT does not exclude an acute CVA. A followup head CT or MRI is recommended if neurologic symptoms persist. 2. Remainder of findings as discussed above. Electronically signed by: Dana Santana MD 10/08/2018 1:44 PM CDT
--- NOTE | 2018-10-08 14:53 | CT ---
PROCEDURE: CT Angiography Chest With Intravenous Contrast CLINICAL INDICATION: The patient is 33 years old and is Female; elevated d-dimer TECHNIQUE: Of note, the patient's IV infiltrated during the scan. Axial computed tomographic angiography images of the chest with intravenous contrast using pulmonary embolism protocol. Sagittal and coronal reformatted images were created and reviewed. Sagittal and coronal reformatted images were created and reviewed. This CT exam was performed using one or more of the following dose reduction techniques: automated exposure control, adjustment of the mA and/or kV according to patient size, and/or use of iterative reconstruction technique. MIP reconstructed images were created and reviewed. COMPARISON: Prior CTA study from 01/16/2018. FINDINGS: PULMONARY ARTERIES: This study is nondiagnostic as I cannot even clear the main pulmonary artery branches with confidence due to lack of opacification. The contrast bolus is markedly suboptimal for this evaluation. AORTA: The thoracic aorta is within normal limits without aneurysm or dissection. GREAT VESSELS OF AORTIC ARCH: Great vessels are unremarkable in appearance. LUNGS: The lungs are clear. No focal consolidation or pulmonary nodules are seen. PLEURAL SPACE: No pleural effusions identified. No pneumothorax. HEART: No pericardial effusion is identified. Heart is enlarged in size. No evidence of RV dysfunction. BONES/JOINTS: Mild S-shaped scoliosis of the thoracic spine. No acute fracture. No dislocation. SOFT TISSUES: Unremarkable. LYMPH NODES: There is no mediastinal, hilar or axillary lymphadenopathy. LIVER: Hepatic steatosis is identified. No intrahepatic lesions are noted. GALLBLADDER AND BILE DUCTS: There are postsurgical changes from prior cholecystectomy in the gallbladder fossa. UPPER ABDOMEN: Fatty infiltration of the LEFT diaphragmatic bijan. IMPRESSION: This study is nondiagnostic as I cannot even clear the main pulmonary artery branches with confidence due to lack of opacification secondary to suboptimal bolus related to IV infiltration. Recommend either a repeat study or VQ scan for better evaluation. If there is extravasation of contrast, please treat per department protocol. Electronically signed by: Marquez Mcgraw MD 10/08/2018 2:51 PM CDT
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
[2018-10-08] MEDS ORDERED: ONDANSETRON INJ 4 MG/2 ML VIAL IV PRN (17:15)
[2018-10-08] MEDS ORDERED: SODIUM CHLORIDE 0.9% (FLUSH) 10 ML SYG IV PRN (17:15)
[2018-10-08] MEDS ORDERED: IV SET AND CAP CHANGE INJ INJ SCH (17:30)
[2018-10-08] MEDS: SODIUM CHLORIDE 0.9% (FLUSH) 10 ML SYG IV SCH (20:53)
[2018-10-08] MEDS: ZOLPIDEM TARTRATE 10 MG TAB PO SCH (20:54)
[2018-10-08] MEDS: ENOXAPARIN SODIUM 40 MG/0.4 ML SYG SUBCU SCH (20:54)
[2018-10-08] MEDS: carBAMazepine 200 MG TAB PO SCH (20:54)
[2018-10-08] MEDS: ACETAMINOPHEN-CAFF-BUTALBITAL 1 EA TAB PO PRN (20:58)
[2018-10-08] MEDS: HYDROcodone 5MG/APAP 325MG 1 EA TAB PO PRN (20:58)
[2018-10-08] MEDS ORDERED: ALBUTEROL SULFATE 2.5 MG/3 ML VIAL NEB PRN (21:44)
[2018-10-08] MEDS: ALBUTEROL SULFATE 2.5 MG/3 ML VIAL NEB SCH (22:54)
[2018-10-08] MEDS ORDERED: HYDROcodone 7.5MG/APAP 325MG 1 EA TAB PO ONE (23:51)
[2018-10-09] MEDS: PANTOPRAZOLE SODIUM IV 40 MG VIAL IV SCH (06:13)
[2018-10-09] MEDS: carBAMazepine 200 MG TAB PO SCH ×3 (08:05→20:47)
[2018-10-09] MEDS: SODIUM CHLORIDE 0.9% (FLUSH) 10 ML SYG IV SCH ×2 (08:08→20:48)
[2018-10-09] MEDS ORDERED: ASPIRIN (CHEWABLE) 81 MG TAB PO SCH (09:00)
[2018-10-09] MEDS: ALBUTEROL SULFATE 2.5 MG/3 ML VIAL NEB SCH ×4 (09:01→20:25)
--- NOTE | 2018-10-09 10:15 | MRI ---
EXAM DESCRIPTION: Brain w/oContrast: MRI. CLINICAL HISTORY: TIA COMPARISON: Ultrasound duplex carotid vertebral scan today. TECHNIQUE: Multiplanar, high-field MRI unit, multiple diffusion sequences, multiple conventional sequences without contrast. FINDINGS: Normal FLAIR and T2-weighted signal in the periventricular white matter and smith-white matter junctions of the cerebral hemispheres. . No hemorrhage, no cerebral edema, no mass-effect. No diffusion restriction. Normal bilateral basal ganglia. Normal signal in the brainstem and cerebellar hemispheres. No hemorrhage, no parenchymal edema, no diffusion restriction.. Concordance of the diffusion and non-diffusion sequences with no diffusion restriction. Cortical sulci, ventricles, and other CSF spaces, and the subdural spaces are normally configured for patients age. No effacement or displacement. No midline shift. No extra-axial hemorrhage. Normal flow signal void in the major vessels of the [place], and the venous sinuses. IACs are symmetric bilaterally. Normal signal in the bilateral mastoid air cells. No mass effect in the bilateral cerebellopontine angles. Pituitary gland occupies all of the sella. Base of the cerebellar tonsils is slightly above the foramen magnum. Small polyp or mucous retention cyst in the anterior base of the right maxillary antrum.. The bony calvarium is intact. IMPRESSION: 1. Normal noncontrast MRI scan of the brain with no hemorrhage, no mass effect, and no cerebral edema. 2. Normal noncontrast MRI diffusion study with no acute or subacute significant ischemia or infarction. Electronically signed by: Monty Kim MD 10/09/2018 10:13 AM CDT
[2018-10-09] MEDS: HYDROcodone 5MG/APAP 325MG 1 EA TAB PO PRN ×2 (10:29→20:46)
[2018-10-09] MEDS: diazePAM 5 MG TAB PO SCH ×2 (15:25→20:47)
--- NOTE | 2018-10-09 16:17 | US ---
EXAM DESCRIPTION: Carotid Duplex: ULTRASOUND. CLINICAL HISTORY: 33 years Female TIA COMPARISON: MR scan of the brain without contrast on this visit. TECHNIQUE: Transcutaneous scanning utilizing smith-scale and Doppler modes to evaluate the bilateral carotid systems and vertebral arteries. Percentage of diameter of stenosis or no stenosis recorded will be based upon NASCET criteria. FINDINGS: Peak systolic/end diastolic (CM-Sec) CCA Right 99/19 Left 93/28. ICA Right proximal 111/18, mid 65/25. Left proximal 54/20, mid 68/26. Vertebral Right 58/19 Left 36/12. ECA (PS Only) Right 76 left 17. ICA/CCA peak systolic ratio: Right 1.1 Left 0.7 ICA/CCA end diastolic ratio: Right 0.9 Left 0.9 Vertebral arteries: antegrade flow. Comments: Spectral broadening in the bilateral proximal ICAs. IMPRESSION: 1. Doppler evaluation of the bilateral carotid systems and vertebral arteries shows no hemodynamically significant stenoses. 2. No significant amount of plaque seen in the carotid arteries bilaterally. Bilateral vertebral arteries showed antegrade-cephalad flow. Electronically signed by: Monty Kim MD 10/09/2018 4:15 PM CDT
[2018-10-09] MEDS: ACETAMINOPHEN-CAFF-BUTALBITAL 1 EA TAB PO PRN (20:47)
[2018-10-09] MEDS: ENOXAPARIN SODIUM 40 MG/0.4 ML SYG SUBCU SCH (20:47)
[2018-10-09] MEDS: ZOLPIDEM TARTRATE 10 MG TAB PO SCH (20:48)
--- NOTE | 2018-10-09 21:29 | PN ---
DATE: 10/09/18 SUPERVISING PHYSICIAN: Adalid Felix M.D. SUBJECTIVE: The patient states she still cannot move her left side and has numbness on that side as well. No other deficits. No slurred speech. No facial asymmetry. OBJECTIVE: Blood pressure 133/66, heart rate 88, respiratory rate 16, temperature 98.7, oxygen saturation 98%. GENERAL: Ms. Rowan is a 33 year-old female in no active distress. NEUROLOGIC: The patient is alert and oriented. She is unable to move her left arm or left leg. Her DTRs are intact. She seems to wince to nail bed pressure on the left hand. She did not move the arm though. LUNGS: Clear to auscultation bilaterally. CARDIOVASCULAR: Regular rate and rhythm. Normal S1 and S2. ABDOMEN: Obese, soft. Positive bowel sounds. EXTREMITIES: Lower extremities with no significant edema. LABORATORY: Labs are reviewed and unremarkable. She did have an MRI of the brain which did not show any acute findings. She had a carotid sonogram which did not show any acute findings. ASSESSMENT: 1. Left sided paresthesias and paralysis concerning for conversion disorder. 2. History of seizure disorder secondary to head trauma as a child. 3. Asthma. 4. Anxiety and depression. 5. Posttraumatic stress disorder. PLAN: MRI as well as carotid sonogram were negative. I do not see any physiologic reason for the left sided paralysis. I discussed with Dr. Felix the likelihood of conversion disorder and he agreed at this time. Will watch her again overnight and attempt to refer to rehab tomorrow. I cannot think of any other diagnostics to do at this time. Will reevaluate in the morning. There is no need to repeat any labs at this time. #[id number] [facility]
[2018-10-10] MEDS: HYDROcodone 5MG/APAP 325MG 1 EA TAB PO PRN ×2 (00:45→06:01)
[2018-10-10] MEDS: PANTOPRAZOLE SODIUM IV 40 MG VIAL IV SCH (06:01)
[2018-10-10] MEDS: carBAMazepine 200 MG TAB PO SCH (08:33)
[2018-10-10] MEDS: diazePAM 5 MG TAB PO SCH (08:34)
[2018-10-10] MEDS: ALBUTEROL SULFATE 2.5 MG/3 ML VIAL NEB SCH (09:20)
[2018-10-10 11:45] VITALS: BP 109/73; TEMP 98.4; O2SAT 95
--- NOTE | 2018-10-10 13:33 | DS ---
SUPERVISING PHYSICIAN: Adalid Felix MD ADMISSION DIAGNOSIS: 1. Left sided numbness with questionable transient ischemic attack like symptoms. 2. Elevated D-dimer, history of pulmonary embolism and inclusive CT scan of the chest for pulmonary embolism. 3. History of seizure disorder secondary to head trauma as a child. 4. Asthma. 5. Anxiety and depression. 6. Posttraumatic stress disorder. DISCHARGE DIAGNOSIS: 1. Left sided paresthesias and paralysis concerning for conversion disorder. 2. History of seizure disorder secondary to head trauma as a child. 3. Asthma. 4. Anxiety and depression. 5. Posttraumatic stress disorder. HOSPITAL COURSE: This is a 33-year-old female who called EMS due to left sided weakness. She has a significant history of seizures and woke up with inability to move the left side of her body as well as numbness. Initially, she could grossly move her arm, but she did not have any facial drooping and no slurred speech. She came to the Emergency Room and also stated she had a history of pulmonary embolism, but is not taking currently any anticoagulation. She had a CT of the brain in the Emergency Room which did not show any acute findings. She was admitted to the hospital and had an MRI which did not show any findings. She also had a carotid sonogram which was normal. Initially in the Emergency Room, she had gross motor movement on the left side, but then day 2 of admission, she stated she could not move that side at all. She did wince to nailbed pressure in the left hand although she stated she could not feel it. Due to inability to find anything on diagnostic workup, her findings were more consistent with a conversion disorder. 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 Her concern was resuming her home medications, which I did write prescriptions for her Tegretol, a reduced dose of Valium, and her Ambien. I did not write any prescriptions for hydrocodone or Tylenol #3. She states she will followup with her primary care physician, Abelino Bond in [place]. I provided the diagnostics disc as well as reports for her take to him. She may need to see another neurologist, however, once again, I do feel like this is conversion disorder. She did have an inconclusive CTA of the chest that was done due to elevated D-dimer, she has never had any symptoms consistent with pulmonary embolism such as shortness of breath, pleuritic chest pain or tachycardia. She will be discharged today in stable condition. No new medications, but I have once again written for her Tegretol, a reduced dose of Valium and q.h.s. Ambien. Activity is as tolerated. Diet as tolerated. #[id number] [facility]
== END 2018-10-10 11:00 | disposition home or self-care (01) ==
LOC: ER 11:55 → MS 16:08
PROVIDERS: ADMIT Nurse Practitioner Acute Care; ATTEND Nurse Practitioner
DX: G83.9 Paralytic syndrome, unspecified (principal); R20.2 Paresthesia of skin; G40.909 Epilepsy, unspecified, not intractable, without status epilepticus; J45.909 Unspecified asthma, uncomplicated; F41.9 Anxiety disorder, unspecified; F32.9 Major depressive disorder, single episode, unspecified; F43.10 Post-traumatic stress disorder, unspecified; M62.81 Muscle weakness (generalized); I45.10 Unspecified right bundle-branch block; Z79.899 Other long term (current) drug therapy; Z88.1 Allergy status to other antibiotic agents; Z88.3 Allergy status to other anti-infective agents; Z88.6 Allergy status to analgesic agent; Z88.8 Allergy status to other drugs, medicaments and biological substances; Z86.711 Personal history of pulmonary embolism; Z62.810 Personal history of physical and sexual abuse in childhood; Z90.49 Acquired absence of other specified parts of digestive tract; Z90.710 Acquired absence of both cervix and uterus
CPT/HCPCS: 96374; 96376; 96372 ×2; J7611 ×4; J1650 ×2; 85379; 80053 ×2; 80061; 36415 ×2; 85025 ×2; 83735; 85730; 85610; 70450; 71275; 93880; 94640 ×5; 94760 ×10; 97530; G8978; G8979; 97162; 99285; 70551; 93005

== ENCOUNTER 2018-10-18 21:33 | Emergency (ER) | payer OTHER ==
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
[2018-10-19 03:45] VITALS: BP 125/92; TEMP 98.2; O2SAT 99
== END 2018-10-19 03:07 | disposition left against medical advice (07) ==
LOC: ER 21:33
DX: T42.4X2A Poisoning by benzodiazepines, intentional self-harm, initial encounter (principal); T42.6X2A Poisoning by other antiepileptic and sedative-hypnotic drugs, intentional self-harm, initial encounter; T43.592A Poisoning by other antipsychotics and neuroleptics, intentional self-harm, initial encounter; F33.3 Major depressive disorder, recurrent, severe with psychotic symptoms; R00.0 Tachycardia, unspecified; I45.10 Unspecified right bundle-branch block; J45.909 Unspecified asthma, uncomplicated; R56.9 Unspecified convulsions; Z53.29 Procedure and treatment not carried out because of patient's decision for other reasons; Z91.5 Personal history of self-harm; Z86.711 Personal history of pulmonary embolism; Z79.899 Other long term (current) drug therapy; Z88.1 Allergy status to other antibiotic agents; Z88.5 Allergy status to narcotic agent; Z88.6 Allergy status to analgesic agent

== ENCOUNTER 2018-10-21 22:33 | Emergency (ER) | payer OTHER ==
[2018-10-21] MEDS ORDERED: MORPHINE SULFATE INJ 10 MG/ML VIAL IV ONE (23:14)
[2018-10-21] MEDS ORDERED: PROCHLORPERAZINE INJ 10 MG/2 ML VIAL IV ONE (23:14)
--- NOTE | 2018-10-21 23:16 | RAD ---
CLINICAL HISTORY: chest pain COMPARISON: 08/21/2018. TECHNIQUE: XR CHEST 1 VIEW 10/21/2018 10:41 PM CDT FINDINGS: The heart is enlarged. Lungs are clear without consolidation, atelectasis, mass or edema. There is no pleural effusion. There is no pneumothorax. There are no acute osseous findings. IMPRESSION: Clear lungs. Electronically signed by: Mario Elliott MD 10/21/2018 11:14 PM CDT
[2018-10-21 23:17] VITALS: TEMP 97.9
[2018-10-21] MEDS ORDERED: SODIUM CHLORIDE 0.9% 1000ML 1,000 ML IVS ONE (23:18)
[2018-10-21] MEDS ORDERED: CLOPIDOGREL 75 MG TAB PO ONE (23:19)
--- NOTE | 2018-10-21 23:31 | ED.PDOC ---
History of Present Illness - General Chief Complaint: Chest Pain/IL Stated Complaint: chest pain Time Seen by Provider: 10/21/18 22:38 Source: patient Exam Limitations: no limitations - History of Present Illness Initial Comments: Betsey Rowan 33 y/o female came to ER with generalized weakness and dull left sided chest pains this evening which had been constant.She was here 3 days ago for multiple drug overdose was about to be sent to [facility] in [place] [facility] but left ama.Had also been hospitalized for numbness and tingling ,weakness left side 2 weeks ago but MRI head no acute changes noted and was sent home.Had been seen here multiple times for different complaints in the past. Timing/Duration: 1-3 hours Severity: moderate Location: central Activities at Onset: none Prior Chest Pain/Cardiac Workup: no prior cardiac workup Improving Factors: nothing Worsening Factors: nothing Nitro Today/Relief: no nitro taken today Aspirin Treatment Today: no aspirin today - ALLERGIES Associated Symptoms: other - see hpi Allergies/Adverse Reactions: Allergies Aspirin Allergy (Verified 10/08/18 15:20) Azithromycin Allergy (Verified 10/08/18 15:20) Ibuprofen Allergy (Verified 10/08/18 15:20) Ketorolac Tromethamine [From Toradol] Allergy (Verified 10/08/18 15:20) Levofloxacin [From Levaquin] Allergy (Verified 10/08/18 15:20) Phenytoin [From Dilantin] Allergy (Verified 10/08/18 15:20) Tramadol Allergy (Verified 10/08/18 15:20) Vancomycin Allergy (Verified 10/08/18 15:20) Home Medications: Ambulatory Orders HYDROcodone 5MG/APAP 325MG [[place] 5/325] 1 tab PO Q4H PRN 04/02/18 Yxhczvmatnuyn-Fkpo-Anfxpmksqk [Fioricet] 1 ea PO Q8H PRN #10 tab 08/03/18 Albuterol Inhaler [Ventolin Hfa Inhaler] 1 puff INH PRN 08/03/18 Zolpidem Tartrate [Ambien] 10 mg PO BEDTIME #30 tab 10/10/18 carBAMazepine [Tegretol] 300 mg PO TID #90 tab 10/10/18 diazePAM [Valium] 5 mg PO TID PRN #60 tab 10/10/18 Review of Systems - Review of Systems Constitutional: States: weakness - generalized EENTM: States: no symptoms reported Respiratory: States: no symptoms reported Cardiology: States: see HPI Gastrointestinal/Abdominal: States: no symptoms reported Genitourinary: States: no symptoms reported Musculoskeletal: States: no symptoms reported Skin: States: no symptoms reported Neurological: States: see HPI Endocrine: States: no symptoms reported All other Systems: Reviewed and Negative, No Change from Baseline Past Medical History (General) - Patient Medical History Hx Seizures: Yes Hx Stroke: No Hx Dementia: No Hx Asthma: Yes Hx of COPD: No Hx Congestive Heart Failure: No Hx Pacemaker: No Hx Hypertension: No Hx Thyroid Disease: No Hx Diabetes: No Hx Gastroesophageal Reflux: No Hx Renal Disease: No Hx Cancer: No Hx of HIV: No Hx Hepatitis C: No Hx MRSA: No Hx Other PMH: Yes - bipolar disorder Surgical History: cholecystectomy, other - hysterectomy - Vaccination History Hx Tetanus, Diphtheria Vaccination: Yes Hx Influenza Vaccination: No Hx Pneumococcal Vaccination: No Immunizations Up to Date: Yes - Social History Hx Tobacco Use: No Hx Chewing Tobacco Use: No Hx Alcohol Use: No Hx Substance Use: No Hx Substance Use Treatment: No Hx Depression: Yes Feels Threatened In Home Enviroment: No Feels Threatened In a Relationship: No Hx Physical Abuse: No Hx Emotional Abuse: No Hx Suspected Abuse: No - Activities of Daily Living Hospice Agency (if applicable):: None - Female History Patient is a Female of Child Bearing Age (10 -59 yrs old): No Patient : No - tubal - Triage Comment ED Triage Comment: pt is AAOX4, clam and coopertive Family Medical History - Family History Mother Family History: Unknown Age (years): 28 Living Status: Cause of : Hit By Car Hx Family Asthma: Yes - child Hx Family Cancer: Yes - breast-sister Physical Exam - Physical Exam General Appearance: Alert, Anxious, No apparent distress Eyes, Ears, Nose, Throat Exam: normal ENT inspection Neck: non-tender, supple Respiratory: chest non-tender, lungs clear, normal breath sounds Cardiovascular/Chest: normal peripheral pulses, regular rate, rhythm, no murmur Peripheral Pulses: radial,right: 2+, radial,left: 2+ Gastrointestinal/Abdominal: non tender, soft Neurologic: alert, oriented x 3 Skin Exam: normal color, warm/dry Progress - Progress Progress: 10/21/18 23:36 Vital Signs - 24 hr 10/21/18 10/21/18 10/21/18 22:35 22:38 23:00 Temperature 97.9 F Pulse Rate 97 H Pulse Rate [ 97 H 80 99 H pulse ox] Respiratory 20 20 Rate Blood Pressure 118/72 [left] O2 Sat by Pulse 99 Oximetry - Results/Orders Results/Orders: 10/21/18 22:41 EKG Stat Pulse Ox Stat Pulse Oximetry Assessment DAILY Laboratory Results - last 24 hr 10/21/18 10/21/18 10/22/18 22:41 22:41 00:47 WBC 7.7 RBC 4.71 Hgb 13.3 Hct 39.9 MCV 84.7 MCH 28.2 MCHC 33.3 RDW 13.9 Plt Count 293 MPV 7.6 Absolute Neuts (auto) 4.50 Absolute Lymphs (auto) 2.40 Absolute Monos (auto) 0.50 Absolute Eos (auto) 0.20 Absolute Basos (auto) 0.00 Neutrophils % 58.8 Lymphocytes % 31.7 Monocytes % 7.1 Eosinophils % 2.1 Basophils % 0.3 PT 9.0 INR 0.90 PTT (SP) 21.6 L D-Dimer, Quantitative 1.13 H* Sodium 141 Potassium 4.0 Chloride 107 Carbon Dioxide 24 Anion Gap 14.0 BUN 15 Creatinine 0.49 L BUN/Creatinine Ratio 30.6 H Random Glucose 126 H Serum Osmolality 283.6 Calcium 9.5 Magnesium 2.0 Creatine Kinase 54 CK-MB (CK-2) 0.8 CK-MB (CK-2) % Not Reportable Troponin I < 0.02 < 0.02 B-Natriuretic Peptide 5.6 Discuss all test results with patient advised to keep appointment with agapito Haddad as scheduled - EKG/XRAY/CT XRAY: chest - clear lungs CT Ordered: Yes - CTA-Chest;NO pulmonary embolus Departure - Departure Clinical Impression: Malaise and fatigue Chest pain Qualifiers: Chest pain type: unspecified Qualified Code(s): R07.9 - Chest pain, unspecified Time of Disposition: 01:53 Disposition: Discharge to Home or Self Care Departure Forms: ED Discharge - Pt. Copy, Patient Portal Self Enrollment Instructions: DI for Chest Pain Home Medications: Ambulatory Orders HYDROcodone 5MG/APAP 325MG [[place] 5/325] 1 tab PO Q4H PRN 04/02/18 Mhxaghjwlsjsd-Eqzh-Fdkhkjgtky [Fioricet] 1 ea PO Q8H PRN #10 tab 08/03/18 Albuterol Inhaler [Ventolin Hfa Inhaler] 1 puff INH PRN 08/03/18 Zolpidem Tartrate [Ambien] 10 mg PO BEDTIME #30 tab 10/10/18 carBAMazepine [Tegretol] 300 mg PO TID #90 tab 10/10/18 diazePAM [Valium] 5 mg PO TID PRN #60 tab 10/10/18 Additional Instructions: Keep appointment with primary Md as scheduled;Return to emergency room as needed;continue with all home medications
--- NOTE | 2018-10-22 00:08 | CT ---
EXAM DESCRIPTION: CTA Chest CLINICAL HISTORY: 33 years, Female, chest pain;elevated d-dimer COMPARISON: None. TECHNIQUE: Axial images through the chest were performed after the administration of intravenous contrast using a pulmonary embolus protocol. MIPS were performed. This exam was performed according to our departmental dose-optimization program which includes use of Automated Exposure Control, adjustment of the mA and/or kV according to patient size and/or use of iterative reconstruction technique. FINDINGS: No pulmonary embolus is identified. Normal caliber aorta without dissection. No pericardial effusion. No pleural effusion. No focal lung consolidation. No pneumothorax. Patent central airway. Soft tissues are unremarkable. No acute osseous findings. No acute abnormality within the visualized upper abdomen. IMPRESSION: No pulmonary embolus. Electronically signed by: Roque Chavez DO 10/22/2018 12:07 AM CDT
[2018-10-22 01:32] VITALS: O2SAT 96
[2018-10-22 03:06] VITALS: BP 133/85
== END 2018-10-22 02:00 | disposition home or self-care (01) ==
LOC: ER 22:33
DX: R07.9 Chest pain, unspecified (principal); R53.83 Other fatigue; R53.81 Other malaise; J45.909 Unspecified asthma, uncomplicated; F31.9 Bipolar disorder, unspecified; R56.9 Unspecified convulsions; Z79.899 Other long term (current) drug therapy; Z88.1 Allergy status to other antibiotic agents; Z88.8 Allergy status to other drugs, medicaments and biological substances; Z88.5 Allergy status to narcotic agent; Z88.6 Allergy status to analgesic agent
CPT/HCPCS: 36415; 71045; 71275; 80048; 82550; 82553; 83880; 84484; 85025; 85379; 85610; 85730; 93005; J0780; J2270; J7030

== ENCOUNTER 2020-01-25 20:23 | Emergency (ER) | payer OTHER ==
[2020-01-25] MEDS ORDERED: methylPREDNISolone SODIUM SUC 125 MG/2 ML VIAL IV ONE (20:24)
[2020-01-25] MEDS ORDERED: diphenhydrAMINE HCL 50 MG/ML VIAL IV ONE (20:24)
[2020-01-25] MEDS ORDERED: EPINEPHrine HCL AMP 1 MG/ML AMP SUBCU ONE (20:24)
[2020-01-25] MEDS ORDERED: CETIRIZINE HCL 10 MG TAB PO ONE (21:27)
[2020-01-25] MEDS ORDERED: predniSONE 20 MG TAB PO ONE (21:27)
--- NOTE | 2020-01-25 21:30 | ED.PDOC ---
History of Present Illness - General Chief Complaint: Allergic Reaction Stated Complaint: I ate zimmerman peppers and I'm allergic Time Seen by Provider: 01/25/20 20:24 Source: patient Exam Limitations: no limitations - History of Present Illness Initial Comments: The patient is a 34-year-old presented emergency room secondary to a severe food allergy. The patient apparently ate a zimmerman pepper about 30 minutes prior to arrival. Her tongue is extremely swollen and she cannot talk. She is still breathing fairly easily through her nose. She does report itching. Though no rashes visible. No chest pain. No shortness of breath yet. No altered mental status. Apparently getting in the car the patient did trip and fall and hit her head. She does have a scalp hematoma to the crown of her head. No significant laceration. No loss of consciousness. Vital signs are stable at this point. Timing/Duration: 1/2 hour Severity: severe Improving Factors: nothing Worsening Factors: nothing Associated Symptoms: denies symptoms Allergies/Adverse Reactions: Allergies Aspirin Allergy (Verified 10/08/18 15:20) Azithromycin Allergy (Verified 10/08/18 15:20) Ibuprofen Allergy (Verified 10/08/18 15:20) Ketorolac Tromethamine [From Toradol] Allergy (Verified 10/08/18 15:20) Levofloxacin [From Levaquin] Allergy (Verified 10/08/18 15:20) Phenytoin [From Dilantin] Allergy (Verified 10/08/18 15:20) Tramadol Allergy (Verified 10/08/18 15:20) Vancomycin Allergy (Verified 10/08/18 15:20) Home Medications: Ambulatory Orders HYDROcodone 5MG/APAP 325MG [[place] 5/325] 1 tab PO Q4H PRN 04/02/18 Txgmubxqieqto-Fyjt-Ihzndvmbui [Fioricet] 1 ea PO Q8H PRN #10 tab 08/03/18 Albuterol Inhaler [Ventolin Hfa Inhaler] 1 puff INH PRN 08/03/18 Zolpidem Tartrate [Ambien] 10 mg PO BEDTIME #30 tab 10/10/18 carBAMazepine [Tegretol] 300 mg PO TID #90 tab 10/10/18 diazePAM [Valium] 5 mg PO TID PRN #60 tab 10/10/18 Epinephrine [Epipen 2-Sky] 0.3 mg IJ Q30MIN #1 ml 10/30/20 predniSONE [Prednisone] 20 mg PO DAILY #5 tab 01/25/20 Review of Systems - Review of Systems Review of Systems: 01/25/20 21:28 Patient initially unable to give much of a review of systems secondary to inability to talk. Most information is gathered after. Constitutional: States: no symptoms reported EENTM: States: see HPI, nose congestion Respiratory: States: no symptoms reported Cardiology: States: no symptoms reported Gastrointestinal/Abdominal: States: no symptoms reported Genitourinary: States: no symptoms reported Musculoskeletal: States: no symptoms reported Skin: States: see HPI Neurological: States: anxiety Endocrine: States: no symptoms reported All other Systems: No Change from Baseline Past Medical History (General) - Patient Medical History Hx Seizures: Yes Hx Stroke: No Hx Dementia: No Hx Asthma: Yes Hx of COPD: No Hx Cardiac Disorders: Yes - Hx PE Hx Congestive Heart Failure: No Hx Pacemaker: No Hx Hypertension: No Hx Thyroid Disease: No Hx Diabetes: No Hx Gastroesophageal Reflux: No Hx Renal Disease: No Hx Cancer: No Hx of HIV: No Hx Hepatitis C: No Hx MRSA: No - Vaccination History Hx Tetanus, Diphtheria Vaccination: Yes Hx Influenza Vaccination: No Hx Pneumococcal Vaccination: Yes - Social History Hx Tobacco Use: No Hx Chewing Tobacco Use: No Hx Alcohol Use: No Hx Substance Use: No Hx Substance Use Treatment: No Hx Depression: Yes Hx Physical Abuse: No Hx Emotional Abuse: No Hx Suspected Abuse: No - Female History Patient is a Female of Child Bearing Age (10 -59 yrs old): Yes Patient : No - tubal - Triage Comment ED Triage Comment: Patient denies there is any chance that she is . d/t swollen tongue unable to determine lmp Family Medical History - Family History Mother Family History: Unknown Age (years): 28 Living Status: Cause of : Hit By Car Hx Family Asthma: Yes - child Hx Family Cancer: Yes - breast-sister Physical Exam - Physical Exam General Appearance: Alert, Anxious Eye Exam: bilateral normal Ears, Nose, Throat: hearing grossly normal, other - The posterior oropharynx cannot be visualized due to the large protruding tongue. 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 Again she does have a scalp hematoma. No significant rash otherwise. Comments: Vital Signs - 24 hr 01/25/20 20:23 Temperature 98.2 F Pulse Rate [ 104 H monitor] Respiratory 18 Rate Blood Pressure 178/102 [Right Arm] O2 Sat by Pulse 92 L Oximetry Progress - Progress Progress: 01/25/20 21:30 The patient to 34-year-old female presents emergency room secondary to anaphylaxis from severe food allergy. The patient received a dose of subcutaneous epinephrine which did help reverse the tongue swelling significantly. She also received Benadryl and steroids. She was also given a dose of Zyrtec prior to discharge. 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 She will also be written for 5 days of low-dose prednisone. She will also be written for EpiPen's for as needed use. ER warnings are given for any significant worsening. Patient did exhibit some very mild hypoxia with falling asleep even after the swelling had decreased. It is likely that she has some sleep apnea and should be evaluated with her primary care doctor for it in the future. She will likely have mild headache for the next week secondary to scalp hematoma. I do not believe that there is evidence to support a concussion on this patient at this time. [email or web address] [email or web address] [phone] Departure - Departure Clinical Impression: Anaphylaxis Qualifiers: Encounter type: initial encounter Qualified Code(s): T78.2XXA - Anaphylactic shock, unspecified, initial encounter Hematoma of scalp Qualifiers: Encounter type: initial encounter Qualified Code(s): S00.03XA - Contusion of scalp, initial encounter Disposition: Discharge to Home or Self Care Condition: Fair Departure Forms: ED Discharge - Pt. Copy, Patient Portal Self Enrollment Instructions: DI for Allergic Rhinitis, Anaphylaxis, Food Allergy Diet: regular diet Activity: increase activity as tolerated Referrals: KYLE MONTES IV DIP DYER [Primary Care Provider] - 1-2 Weeks Prescriptions: Epinephrine [Epipen 2-Sky] 0.3 mg IJ Q30MIN #1 ml predniSONE [Prednisone] 20 mg PO DAILY #5 tab Home Medications: Ambulatory Orders HYDROcodone 5MG/APAP 325MG [[place] 5/325] 1 tab PO Q4H PRN 04/02/18 Royhviaefvpug-Vzvu-Jisgskclml [Fioricet] 1 ea PO Q8H PRN #10 tab 08/03/18 Albuterol Inhaler [Ventolin Hfa Inhaler] 1 puff INH PRN 08/03/18 Zolpidem Tartrate [Ambien] 10 mg PO BEDTIME #30 tab 10/10/18 carBAMazepine [Tegretol] 300 mg PO TID #90 tab 10/10/18 diazePAM [Valium] 5 mg PO TID PRN #60 tab 10/10/18 Epinephrine [Epipen 2-Sky] 0.3 mg IJ Q30MIN #1 ml 01/25/20 predniSONE [Prednisone] 20 mg PO DAILY #5 tab 01/25/20 Additional Instructions: The patient to 34-year-old female presents emergency room secondary to anaphylaxis from severe food allergy. The patient received a dose of subcutaneous epinephrine which did help reverse the tongue swelling significantly. She also received Benadryl and steroids. She was also given a dose of Zyrtec prior to discharge. 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 She will also be written for 5 days of low-dose prednisone. She will also be written for EpiPen's for as needed use. ER warnings are given for any significant worsening. Patient did exhibit some very mild hypoxia with falling asleep even after the swelling had decreased. It is likely that she has some sleep apnea and should be evaluated with her primary care doctor for it in the future. She will likely have mild headache for the next week secondary to scalp hematoma. I do not believe that there is evidence to support a concussion on this patient at this time.
[2020-01-25 21:46] VITALS: BP 125/87; TEMP 98.4; O2SAT 98
== END 2020-01-25 21:49 | disposition home or self-care (01) ==
LOC: ER 20:23
DX: T78.04XA Anaphylactic reaction due to fruits and vegetables, initial encounter (principal); S00.03XA Contusion of scalp, initial encounter; F32.9 Major depressive disorder, single episode, unspecified; J45.909 Unspecified asthma, uncomplicated; R56.9 Unspecified convulsions; Z79.899 Other long term (current) drug therapy; Z86.711 Personal history of pulmonary embolism; Z88.5 Allergy status to narcotic agent; Z88.1 Allergy status to other antibiotic agents; Z88.8 Allergy status to other drugs, medicaments and biological substances; Z88.6 Allergy status to analgesic agent; V48.4XXA Person boarding or alighting a car injured in noncollision transport accident, initial encounter; Y92.810 Car as the place of occurrence of the external cause
CPT/HCPCS: 36415; 80053; 85025; J1200; J2930; J7512

== ENCOUNTER 2020-02-06 21:19 | Emergency (ER) | payer OTHER ==
[2020-02-06 21:36] VITALS: TEMP 97.7
[2020-02-06] MEDS ORDERED: SODIUM CHLORIDE 0.9% 1000ML 1,000 ML IVS ONE (21:42)
--- NOTE | 2020-02-06 21:45 | ED.PDOC ---
History of Present Illness - General Chief Complaint: Abdominal Pain Stated Complaint: lower abdomen pain radiates to her back Time Seen by Provider: 02/06/20 21:20 Information Source: patient, RN notes reviewed, Vital Signs reviewed, old records Exam Limitations: no limitations - History of Present Illness Initial Comments: 34 yo F comes in with one day of RLQ pain radiating to her back. states pain is constant. no associated n/v/d. pain sharp. no dsyruia or hematuria. Hx of cholecysectomy, total hysterectomy. no fever. still has her appendix. no history of kidney stones. patient states she was at [facility] and was told her lymph nodes were enlarged and that was causing her abd pain. Review of Systems - Review of Systems Constitutional: Denies: chills, fever, malaise EENTM: Denies: blurred vision, throat pain, mouth pain Respiratory: Denies: cough, short of breath, stridor Cardiology: Denies: chest pain, palpitations, syncope Gastrointestinal/Abdominal: States: abdominal pain. Denies: constipation, diarrhea, nausea, vomiting Genitourinary: Denies: dysuria, frequency, hematuria Musculoskeletal: States: back pain. Denies: joint pain, muscle pain, neck pain Skin: Denies: rash Neurological: Denies: headache, numbness, seizure, weakness Endocrine: Denies: unexplained weight gain, unexplained weight loss Hematologic/Lymphatic: Denies: easy bleeding, easy bruising Past Medical History (General) - Patient Medical History Hx Seizures: Yes Hx Stroke: No Hx Dementia: No Hx Asthma: Yes Hx of COPD: No Hx Cardiac Disorders: Yes - Hx PE Hx Congestive Heart Failure: No Hx Pacemaker: No Hx Hypertension: No Hx Thyroid Disease: No Hx Diabetes: No Hx Gastroesophageal Reflux: No Hx Renal Disease: No Hx Cancer: No Hx of HIV: No Hx Hepatitis C: No Hx MRSA: No Surgical History: cholecystectomy, Hysterectomy - Vaccination History Hx Tetanus, Diphtheria Vaccination: No Hx Influenza Vaccination: No Hx Pneumococcal Vaccination: No - Social History Hx Tobacco Use: No Hx Chewing Tobacco Use: No Hx Alcohol Use: No Hx Substance Use: No Hx Substance Use Treatment: No Hx Depression: Yes Hx Physical Abuse: No Hx Emotional Abuse: No Hx Suspected Abuse: No - Female History Patient : No - tubal Family Medical History - Family History Mother Family History: Unknown Age (years): 28 Living Status: Cause of : Hit By Car Hx Family Asthma: Yes - child Hx Family Cancer: Yes - breast-sister Physical Exam - Physical Exam General Appearance: Alert, Comfortable, No apparent distress, Obese, Well De veloped, Well Groomed, Well Hydrated, Well Nourished Eyes, Ears, Nose, Throat Exam: PERRL/EOMI, normal ENT inspection Neck: non-tender, full range of motion, supple, normal inspection Respiratory: chest non-tender, lungs clear, normal breath sounds, no respiratory distress, no accessory muscle use Cardiovascular/Chest: normal peripheral pulses, regular rate, rhythm, no edema, no gallop, no JVD, no murmur Peripheral Pulses: 2+ Gastrointestinal/Abdominal: normal bowel sounds, non tender, soft, no organomegaly, no pulsatile mass Rectal Exam: deferred Back Exam: normal inspection, no CVA tenderness, no vertebral tenderness Extremity: normal range of motion, non-tender, normal inspection, no pedal edema, no calf tenderness, normal capillary refill, other - no knee instability. negative lachmans, drawer. 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 given she is PO tolerant and has no midepigastric pain, do not feel she has pancreatitis at this time. The data reviewed when caring for this patient included: nurse notes, prior records, etc. The history and assessments from nurses notes were reviewed and considered, and the patient's home medication list was also reviewed and consid ered. My assessment and the results of testing completed here in the ED were discussed with the patient/family. All questions were answered, and they express understanding of my assessment and the plan. They have been instructed to return if their symptoms worsen, and have been asked to follow up with their primary care physician to recheck today's presenting complaint. Strict abdominal return precautions given. I have reviewed medication, benefits, alternatives and side effects. Patient decided to proceed with medication. Brissa Echeverria DO #[id number] 02/06/20 22:32 - Results/Orders Results/Orders: 02/06/20 21:42 Hold Metformin x 48Hrs [id number] 02/06/20 23:32 [id number] CITRATE INJ [Sublimaze Inj] 50 mcg IV ONCE ONE Laboratory Results WBC 7.5 K/mm3 (4.8-10.8) 02/06/20 21:55 RBC 4.60 M/mm3 (4.20-5.40) 02/06/20 21:55 Hgb 13.4 gm/dL (12.0-16.0) 02/06/20 21:55 Hct 39.4 % (36.0-47.0) 02/06/20 21:55 MCV 85.6 fl (81.0-99.0) 02/06/20 21:55 MCH 29.1 pg (27.0-31.0) 02/06/20 21:55 MCHC 34.0 g/dL (33.0-37.0) 02/06/20 21:55 RDW 14.0 % (11.5-14.5) 02/06/20 21:55 Plt Count 256 K/mm3 (130-400) 02/06/20 21:55 MPV 7.7 fl (7.40-10.4) 02/06/20 21:55 Absolute Neuts (auto) 4.40 K/uL (1.8-6.8) 02/06/20 21:55 Absolute Lymphs (auto) 2.50 K/uL (1.0-3.4) 02/06/20 21:55 Absolute Monos (auto) 0.50 K/uL (0.2-0.8) 02/06/20 21:55 Absolute Eos (auto) 0.10 K/uL (0.0-0.4) 02/06/20 21:55 Absolute Basos (auto) 0.10 K/uL (0.0-0.1) 02/06/20 21:55 Neutrophils % 57.8 % (42.0-78.0) 02/06/20 21:55 Lymphocytes % 32.9 % (20.0-50.0) 02/06/20 21:55 Monocytes % 6.7 % (2.0-9.0) 02/06/20 21:55 Eosinophils % 1.9 % (1.0-5.0) 02/06/20 21:55 Basophils % 0.7 % (0.0-2.0) 02/06/20 21:55 Sodium 143 mmol/L (135-145) 02/06/20 21:55 Potassium 4.0 mmol/L (3.6-5.0) 02/06/20 21:55 Chloride 104 mmol/L (101-111) 02/06/20 21:55 Carbon Dioxide 28 mmol/L (21-31) 02/06/20 21:55 Anion Gap 15.0 (12-18) 02/06/20 21:55 BUN 15 mg/dL (7-18) 02/06/20 21:55 Creatinine 0.77 mg/dL (0.6-1.3) 02/06/20 21:55 BUN/Creatinine Ratio 19.5 (10-20) 02/06/20 21:55 Random Glucose 107 mg/dL (70-105) H 02/06/20 21:55 Serum Osmolality 286.3 mOsm/L (275-295) 02/06/20 21:55 Calcium 9.0 mg/dL (8.4-10.2) 02/06/20 21:55 Total Bilirubin 0.3 mg/dL (0.2-1.0) 02/06/20 21:55 AST 22 IU/L (10-42) 02/06/20 21:55 ALT 25 IU/L (10-60) 02/06/20 21:55 Alkaline Phosphatase 97 IU/L (42-121) 02/06/20 21:55 Serum Total Protein 7.2 gm/dL (6.4-8.2) 02/06/20 21:55 Albumin 3.7 g/dl (3.2-5.5) 02/06/20 21:55 Globulin 3.5 gm/dL (2.3-3.5) 02/06/20 21:55 Albumin/Globulin Ratio 1.1 (1.1-1.9) 02/06/20 21:55 Lipase 55 U/L (22-51) H 02/06/20 21:55 Urine Color Yellow (Yellow) 02/06/20 23:00 Urine Appearance Clear (Clear) 02/06/20 23:00 Urine pH 7.5 (4.5-7.8) 02/06/20 23:00 Ur Specific [place] 1.020 (1.005-1.030) 02/06/20 23:00 Urine Protein Negative mg/dL 02/06/20 23:00 Urine Glucose (UA) Negative mg/dL (Negative) 02/06/20 23:00 Urine Ketones Negative mg/dL (NEGATIVE) 02/06/20 23:00 Urine Blood Negative (Negative) 02/06/20 23:00 Urine Nitrite Negative 02/06/20 23:00 Urine Bilirubin Negative (NEGATIVE) 02/06/20 23:00 Urine Urobilinogen 0.2 mg/dL (0.2-1.0) 02/06/20 23:00 Ur Leukocyte Esterase Negative (Negative) 02/06/20 23:00 Urine RBC 0 /hpf 02/06/20 23:00 Urine WBC 0 /hpf 02/06/20 23:00 Ur Epithelial Cells 1-3 /hpf 02/06/20 23:00 Urine Bacteria 0 02/06/20 23:00 - EKG/XRAY/CT XRAY: knee - no acute fracture or dislocation. CT: abd/pelvis: no acute pathology Departure - Departure Clinical Impression: Abdominal pain Qualifiers: Abdominal location: right lower quadrant Qualified Code(s): R10.31 - Right lower quadrant pain Time of Disposition: 23:32 Disposition: Discharge to Home or Self Care Departure Forms: ED Discharge - Pt. Copy, Patient Portal Self Enrollment Instructions: DI for Abdominal Pain-Adult, Acute Abdomen (Belly Pain), Adult (DC) Referrals: KYLE MONTES IV, HOSPICE AIDE [Primary Care Provider] - 1-2 Weeks Home Medications: Ambulatory Orders HYDROcodone 5MG/APAP 325MG [[place] 5/325] 1 tab PO Q4H PRN 04/02/18 Jcuzwyzteifvk-Uorb-Lxasftomzf [Fioricet] 1 ea PO Q8H PRN #10 tab 08/03/18 Albuterol Inhaler [Ventolin Hfa Inhaler] 1 puff INH PRN 08/03/18 Zolpidem Tartrate [Ambien] 10 mg PO BEDTIME #30 tab 10/10/18 carBAMazepine [Tegretol] 300 mg PO TID #90 tab 10/10/18 diazePAM [Valium] 5 mg PO TID PRN #60 tab 10/10/18 Epinephrine [Epipen 2-Sky] 0.3 mg IJ Q30MIN #1 ml 01/25/20 predniSONE [Prednisone] 20 mg PO DAILY #5 tab 01/25/20
[2020-02-06] MEDS ORDERED: MORPHINE SULFATE INJ 10 MG/ML VIAL IV ONE (21:59)
--- NOTE | 2020-02-06 22:18 | RAD ---
EXAM DESCRIPTION: Knee,Left Complete 02/06/2020 10:16 PM RADIAL SAW OPERATOR CLINICAL HISTORY: 34 years, Female, fall COMPARISON: None FINDINGS: 3 X-ray views of the left knee (frontal lateral and sunrise views) were performed. There is no evidence for fracture or dislocation. There are no gross intraosseous lesions. Minimal early spur formation is identified within the superior aspect of the patella. No gross articular or soft tissue abnormality is identified. The sunrise views demonstrate no definitive evidence for subluxation There is no joint effusion. There is no periostitis. IMPRESSION: NO EVIDENCE FOR FRACTURE OR DISLOCATION AT THE LEFT KNEE. Electronically signed by: Devonte Rivera MD 02/06/2020 10:17 PM RADIAL SAW OPERATOR
--- NOTE | 2020-02-06 22:30 | CT ---
EXAM DESCRIPTION: Abdomen/Pelvis w/Contrast 02/06/2020 10:25 PM TITLE CLERK CLINICAL HISTORY: 34 years, Female, rlq pain COMPARISON: 09/27/2018. PROCEDURE: Contrast-enhanced images of the abdomen and pelvis were performed utilizing 2 mm slice thickness at 2 mm interval reconstruction from the lung bases to the ischial tuberosities after the administration of IV contrast. No dose administration was provided. In addition multiplanar reformats in the coronal and sagittal plane were obtained and reviewed. An individualized dose optimization technique, Automated Exposure Control, was utilized for the performed procedure. FINDINGS: The lung bases demonstrate to be clear. The liver demonstrate slight decreased attenuation suggesting mild fatty infiltration. Surgical clips within the gallbladder fossa corresponding to previous cholecystectomy. No significant intra and/or extra hepatic biliary duct dilatation. The pancreas, spleen and adrenal glands demonstrate to be unremarkable, no focal lesions are noted. The kidneys demonstrate normal uptake of contrast media. No hydronephrosis and/or stones were identified. Grossly the unopacified stomach demonstrate distended with food content. The small bowel and large bowel demonstrate to be within normal limits. Fecal residue and underdistention within the large bowel limits the evaluation. There is no evidence for bowel dilatation and/or free air. The appendix is normal. The urinary bladder demonstrate to be unremarkable. The uterus is absent. There are no adnexal masses. The aorta demonstrate to be normal. There is no retroperitoneal lymphadenopathy. There is no evidence for ascites and/or significant abnormal fluid collections the bone windows demonstrate no significant skeletal lesions. IMPRESSION: MILD FATTY INFILTRATION OF THE LIVER. STATUS POST CHOLECYSTECTOMY. NORMAL APPENDIX. NO EVIDENCE FOR ACUTE INTRA-ABDOMINAL PROCESS. Electronically signed by: Devonte Rivera MD 02/06/2020 10:28 PM TITLE CLERK
[2020-02-06 23:06] VITALS: BP 147/83; O2SAT 97
[2020-02-06] MEDS ORDERED: fentaNYL CITRATE INJ 50 MCG/ML 2 ML AMP IV ONE (23:32)
== END 2020-02-06 23:41 | disposition home or self-care (01) ==
LOC: ER 21:19
DX: R10.31 Right lower quadrant pain (principal); J45.909 Unspecified asthma, uncomplicated; F32.9 Major depressive disorder, single episode, unspecified; R56.9 Unspecified convulsions; Z86.711 Personal history of pulmonary embolism; Z90.49 Acquired absence of other specified parts of digestive tract; Z90.710 Acquired absence of both cervix and uterus
CPT/HCPCS: 36415; 73562; 74177; 80053; 81001; 83690; 85025; J2270; J3010; J7030

== ENCOUNTER → 2020-03-03 | Outpatient (CLI) | payer OTHER ==
--- NOTE | 2020-03-05 14:18 | US ---
EXAM DESCRIPTION: 3D Diagnostic BILATERAL (accession [id number]), Breast,Left (accession [id number]): Ultrasound CLINICAL HISTORY: 34 yearsFemaleLEFT BREAST LUMP 6:00 position posteriorly at the inferior breast angle with the chest wall. Tender with wearing of a brassiere. Mother with breast and ovarian cancer at age 26. Sister with breast cancer at age 22. Remote family history of breast cancer. Menarche age 11. Childbirth 19. Menopause age 29. No HRT Lifetime risk of developing breast cancer (Tyrer-Cuzick model)(%): 35.4. COMPARISON: Bilateral screening digital breast tomosynthesis September 2017 TECHNIQUE: Bilateral LM, CC, and MLO projection full-field images, digital tomosynthesis technique. Bilateral 2-D digital full-field images: LM, CC, and MLO projections. CAD available for 2-D images.. Transcutaneous scanning of the left breast utilizing smith-scale and Doppler modes. Scanning performed by the international project manager and Dr. Kim. FINDINGS: The breast parenchymal density pattern is: Scattered areas of fibroglandular density. Triangular skin marker at the 6:00 position of the posterior left breast at the inferior angle with the chest wall. No mammographic abnormality. Nodular pattern of fibroglandular tissues in the middle third and anterior third bilaterally. Axillary nodes. Stable since the prior examination. No skin thickening or nipple retraction No new focal, stellate mass or density, focal asymmetry , and no suspicious microcalcifications bilaterally. Stable mammograms compared to prior study, taking into account differences in mammographic technique Ultrasound: The site of palpable mass posterior inferior left breast abutting the skin marker is predominantly fatty tissue with no significant amount of fibroglandular tissue. Well-defined slightly echogenic mass thin capsule is present measuring 2.1 x 3.1 cm. Small echogenic streaks within. Not vascular. Wider than tall orientation. Predominantly posterior acoustic enhancement. Consistent with a subcutaneous lipoma., IMPRESSION: Benign exam. BIRAD CATEGORY: 2 BENIGN FINDINGS. RECOMMENDATIONS: FOLLOW UP: Routine digital bilateral mammographic screening, one year interval from February 2020. Written communication explaining the IMPRESSION and follow-up, will be mailed to the patient and referring health care provider. The FINDINGS and the FOLLOW-UP plan were reviewed in person with the patient after the examination. According to the [employer], yearly mammograms are recommended starting at age 40 and continuing as long as a woman is in good health. Any breast change noted on a breast self-exam should be reported promptly to the patient's healthcare provider. Breast MRI is recommended for women with an approximately 20-25% or greater lifetime risk of breast cancer, including women with a strong family history of breast or ovarian cancer and women who have been treated for Hodgkin's disease. A negative mammographic report should not delay tissue diagnosis in patients with significant clinical history or physical findings. Extremely dense breast tissue limits the sensitivity of digital mammography. Electronically signed by: Monty Kim MD 03/05/2020 2:17 PM [facility]
== END ==
LOC: MAMMO 13:43
PROVIDERS: ATTEND Nurse Practitioner Family
DX: N63.15 Unspecified lump in the right breast, overlapping quadrants (principal)
CPT/HCPCS: 76641; 77066; G0279

== ENCOUNTER 2020-03-09 19:40 | Emergency (ER) | payer OTHER ==
[2020-03-09 19:55] VITALS: TEMP 97.9
--- NOTE | 2020-03-09 20:13 | ED.PDOC ---
History of Present Illness - General Chief Complaint: General Stated Complaint: fever , congestion , cough nausea and vomiting with positive covid exposure Time Seen by Provider: 03/09/20 19:55 Source: patient Exam Limitations: no limitations - History of Present Illness Timing/Duration: other - 2 days Improving Factors: nothing Worsening Factors: nothing Associated Symptoms: denies symptoms, cough, fever/chills, nausea/vomiting Allergies/Adverse Reactions: Allergies Aspirin Allergy (Verified 10/08/18 15:20) Azithromycin Allergy (Verified 10/08/18 15:20) Ibuprofen Allergy (Verified 10/08/18 15:20) Ketorolac Tromethamine [From Toradol] Allergy (Verified 10/08/18 15:20) Levofloxacin [From Levaquin] Allergy (Verified 10/08/18 15:20) Phenytoin [From Dilantin] Allergy (Verified 10/08/18 15:20) Tramadol Allergy (Verified 10/08/18 15:20) Vancomycin Allergy (Verified 10/08/18 15:20) Home Medications: Ambulatory Orders HYDROcodone 5MG/APAP 325MG [[place] 5/325] 1 tab PO Q4H PRN 04/02/18 Hutsxgzlruydu-Rphf-Yrshymdnrp [Fioricet] 1 ea PO Q8H PRN #10 tab 08/03/18 Albuterol Inhaler [Ventolin Hfa Inhaler] 1 puff INH PRN 08/03/18 Zolpidem Tartrate [Ambien] 10 mg PO BEDTIME #30 tab 10/10/18 carBAMazepine [Tegretol] 300 mg PO TID #90 tab 10/10/18 diazePAM [Valium] 5 mg PO TID PRN #60 tab 10/10/18 Epinephrine [Epipen 2-Sky] 0.3 mg IJ Q30MIN #1 ml 01/25/20 predniSONE [Prednisone] 20 mg PO DAILY #5 tab 01/25/20 Review of Systems - Review of Systems Constitutional: States: chills, fever EENTM: Denies: eye pain, tearing Respiratory: States: cough. Denies: orthopnea, short of breath Cardiology: Denies: chest pain, edema, palpitations, syncope Gastrointestinal/Abdominal: States: nausea, vomiting. Denies: abdominal pain, diarrhea Musculoskeletal: States: other - body aches . Denies: back pain, gout Skin: Denies: change in color, dryness, lesions Neurological: Denies: no symptoms reported, depressed, emotional problems, paresthesia, pre-existing deficit Endocrine: Denies: intolerance to cold, intolerance to heat, unexplained weight gain, unexplained weight loss Hematologic/Lymphatic: Denies: anemia, easy bleeding, easy bruising Past Medical History (General) - Patient Medical History Hx Seizures: Yes Hx Stroke: No Hx Dementia: No Hx Asthma: Yes Hx of COPD: No Hx Cardiac Disorders: No Hx Congestive Heart Failure: No Hx Pacemaker: No Hx Hypertension: No Hx Thyroid Disease: No Hx Diabetes: No Hx Gastroesophageal Reflux: No Hx Renal Disease: No Hx Cancer: No Hx of HIV: No Hx Hepatitis C: No Hx MRSA: No - Vaccination History Hx Tetanus, Diphtheria Vaccination: No Hx Influenza Vaccination: Yes Hx Pneumococcal Vaccination: No - Social History Hx Tobacco Use: Yes Hx Chewing Tobacco Use: No Hx Alcohol Use: Yes Hx Substance Use: No Hx Substance Use Treatment: No Hx Depression: Yes Feels Threatened In Home Enviroment: No Feels Threatened In a Relationship: No Hx Physical Abuse: No Hx Emotional Abuse: No Hx Suspected Abuse: No - Female History Patient is a Female of Child Bearing Age (10 -59 yrs old): Yes Patient : No - Triage Comment ED Triage Comment: The patient walked into ER room 4 and was placed in bed. She did not appear to be in distress and complained of nausea, vomiting, and fever. She denied shortness of breath and chest pain. She had no other noted complaints at the time of assessment. Family Medical History - Family History Mother Family History: Unknown Age (years): 28 Living Status: Cause of : Hit By Car Hx Family Asthma: Yes - child Hx Family Cancer: Yes - breast-sister Physical Exam - Physical Exam General Appearance: Alert, Comfortable Eye Exam: bilateral normal Ears, Nose, Throat: hearing grossly normal, normal ENT inspection, normal pharynx Neck: non-tender, full range of motion, supple, normal inspection Respiratory: chest non-tender, lungs clear, normal breath sounds, no respiratory distress, no accessory muscle use Cardiovascular/Chest: normal peripheral pulses, regular rate, rhythm, no edema, no gallop, no JVD, no murmur Peripheral Pulses: radial,right: 2+, radial,left: 2+ Gastrointestinal/Abdominal: normal bowel sounds, non tender, soft, no organomegaly Back Exam: normal inspection Extremity: normal range of motion, non-tender, normal inspection Neurologic: political anthropologist II-XII nml as tested, no motor/sensory deficits, alert, normal mood/affect, oriented x 3 Skin Exam: normal color, warm/dry Progress - Progress Progress: 03/09/20 20:19The patient is a 34-year-old female that presents with symptoms consistent with viral syndrome. Respiratory panel obtained report pending. She reports Covid exposure discharging the patient home with isolation precautions, return precautions and follow-up instructions she verbalized understanding to all instructions -Also refill the patient's nebulizer she states that she has asthma and ran out of her nebulizer and she is worried she can have an acute exacerbation with her current symptoms bilateral Departure - Departure Clinical Impression: Viral syndrome Disposition: Discharge to Home or Self Care Departure Forms: ED Discharge - Pt. Copy, Patient Portal Self Enrollment Instructions: Isolation Precautions, Viral Syndrome (DC) Referrals: KYLE MONTES IV, VENETIAN BLIND WASHER [Primary Care Provider] - 1-2 Weeks Home Medications: Ambulatory Orders HYDROcodone 5MG/APAP 325MG [[place] 5/325] 1 tab PO Q4H PRN 04/02/18 Ikqmelyrzidpc-Asal-Wzcbfnffpi [Fioricet] 1 ea PO Q8H PRN #10 tab 08/03/18 Albuterol Inhaler [Ventolin Hfa Inhaler] 1 puff INH PRN 08/03/18 Zolpidem Tartrate [Ambien] 10 mg PO BEDTIME #30 tab 10/10/18 carBAMazepine [Tegretol] 300 mg PO TID #90 tab 10/10/18 diazePAM [Valium] 5 mg PO TID PRN #60 tab 10/10/18 Epinephrine [Epipen 2-Sky] 0.3 mg IJ Q30MIN #1 ml 01/25/20 predniSONE [Prednisone] 20 mg PO DAILY #5 tab 01/25/20 Comments: -Please Follow the current CDC guidelines for isolation. -Follow-up with your primary care physician 1 to 2 days -Return to the emergency department as needed -We will call you with your Covid testing result -Please use [id number] Tylenol or ibuprofen as prescribed as needed for fevers -Zofran has been prescribed as needed for nausea and vomiting -Return to emergency department immediately if your symptoms worsen or you have any further concerns
[2020-03-09 20:28] VITALS: BP 112/81; O2SAT 95
== END 2020-03-09 20:29 | disposition home or self-care (01) ==
LOC: ER 19:40
DX: B34.9 Viral infection, unspecified (principal); F32.9 Major depressive disorder, single episode, unspecified; J45.909 Unspecified asthma, uncomplicated; R56.9 Unspecified convulsions; Z20.828 Contact with and (suspected) exposure to other viral communicable diseases; Z87.891 Personal history of nicotine dependence; Z79.899 Other long term (current) drug therapy; Z88.6 Allergy status to analgesic agent; Z88.1 Allergy status to other antibiotic agents; Z88.8 Allergy status to other drugs, medicaments and biological substances

== ENCOUNTER 2020-03-17 09:14 | Emergency (ER) | payer OTHER ==
[2020-03-17] MEDS ORDERED: TETRACAINE HCL 0.5% OPHTH SOL 1 DROP ONE (09:22)
[2020-03-17] MEDS ORDERED: FLUORESCEIN SODIUM OPHTH STRIP ONE (09:22)
[2020-03-17] MEDS ORDERED: ERYTHROMYCIN OPHTH OINT 1 APPLIC OPHTH ONE (10:17)
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
[2020-03-17 10:31] VITALS: BP 116/82; TEMP 97.7; O2SAT 93
== END 2020-03-17 10:30 | disposition home or self-care (01) ==
LOC: ER 09:14
DX: S05.02XA Injury of conjunctiva and corneal abrasion without foreign body, left eye, initial encounter (principal); J45.909 Unspecified asthma, uncomplicated; F32.9 Major depressive disorder, single episode, unspecified; R56.9 Unspecified convulsions; Y08.89XA Assault by other specified means, initial encounter; W22.8XXA Striking against or struck by other objects, initial encounter; Y92.9 Unspecified place or not applicable; Z85.43 Personal history of malignant neoplasm of ovary; Z79.899 Other long term (current) drug therapy; Z88.6 Allergy status to analgesic agent; Z88.1 Allergy status to other antibiotic agents; Z88.8 Allergy status to other drugs, medicaments and biological substances; Z88.5 Allergy status to narcotic agent

== ENCOUNTER 2020-03-23 00:06 | Emergency (ER) | payer OTHER ==
[2020-03-23] MEDS ORDERED: SODIUM CHLORIDE 0.9% (FLUSH) 10 ML SYG IV PRN (00:22)
[2020-03-23] MEDS ORDERED: SODIUM CHLORIDE 0.9% 1000ML 1,000 ML IVS ONE (00:23)
--- NOTE | 2020-03-23 00:39 | ED.PDOC ---
History of Present Illness - General Chief Complaint: General Stated Complaint: Left Flank pain and difficulty urinating Time Seen by Provider: 03/23/20 00:22 Source: patient, EMS notes reviewed Exam Limitations: no limitations - History of Present Illness Initial Comments: she denies any heavy lifting of trauma to the area Timing/Duration: 4-6 hours Severity: moderate Improving Factors: nothing Worsening Factors: nothing Associated Symptoms: denies symptoms Allergies/Adverse Reactions: Allergies Aspirin Allergy (Verified 10/08/18 15:20) Azithromycin Allergy (Verified 10/08/18 15:20) Ibuprofen Allergy (Verified 10/08/18 15:20) Ketorolac Tromethamine [From Toradol] Allergy (Verified 10/08/18 15:20) Levofloxacin [From Levaquin] Allergy (Verified 10/08/18 15:20) Nitroglycerin Allergy (Verified 03/23/20 01:02) NSAIDs Allergy (Verified 03/23/20 01:02) Phenytoin [From Dilantin] Allergy (Verified 10/08/18 15:20) Tramadol Allergy (Verified 10/08/18 15:20) Vancomycin Allergy (Verified 10/08/18 15:20) Home Medications: Ambulatory Orders Albuterol Inhaler [Ventolin Hfa Inhaler] 1 puff INH PRN PRN 08/03/18 Zolpidem Tartrate [Ambien] 10 mg PO BEDTIME #30 tab 10/10/18 carBAMazepine [Tegretol] 300 mg PO TID #90 tab 10/10/18 Epinephrine [Epipen 2-Sky] 0.3 mg IJ Q30MIN #1 ml 01/25/20 diazePAM [Valium] 10 mg PO TID PRN 03/23/20 Review of Systems - Review of Systems Constitutional: Denies: chills, fever EENTM: Denies: blurred vision, nose pain Respiratory: Denies: cough, short of breath, stridor Cardiology: Denies: chest pain Gastrointestinal/Abdominal: States: other - left flank pain . Denies: abdominal pain, diarrhea, nausea Genitourinary: States: other - difficulty urinating . Denies: discharge, frequency, hematuria Musculoskeletal: States: other. Denies: gout, muscle stiffness Neurological: Denies: anxiety, depressed, emotional problems Endocrine: Denies: excessive sweating, flushing, intolerance to cold Hematologic/Lymphatic: Denies: anemia, blood clots, easy bleeding Past Medical History (General) - Patient Medical History Hx Seizures: Yes Hx Stroke: No Hx Dementia: No Hx Asthma: Yes Hx of COPD: No Hx Cardiac Disorders: No Hx Congestive Heart Failure: No Hx Pacemaker: No Hx Hypertension: No Hx Thyroid Disease: No Hx Diabetes: No Hx Gastroesophageal Reflux: No Hx Renal Disease: No Hx Cancer: No Hx of HIV: No Hx Hepatitis C: No Hx MRSA: No Surgical History: cholecystectomy, Hysterectomy - Vaccination History Hx Tetanus, Diphtheria Vaccination: Yes Hx Influenza Vaccination: No Hx Pneumococcal Vaccination: No - Social History Hx Tobacco Use: No Hx Chewing Tobacco Use: No Hx Alcohol Use: No Hx Substance Use: No Hx Substance Use Treatment: No Hx Depression: No Feels Threatened In Home Enviroment: No Feels Threatened In a Relationship: No Hx Physical Abuse: No Hx Emotional Abuse: No Hx Suspected Abuse: No - Female History Patient is a Female of Child Bearing Age (10 -59 yrs old): Yes Patient : No - Triage Comment ED Triage Comment: The patient was alert and oriented times 4 and rated her left flank pain a 10 on the pain scale. She complained of nausea and had thrown up 3 times prior to arriving at the ED. She denied chest pain shortness of breath and abdominal pain. She had no other noted complaints at the time of assessment. Family Medical History - Family History Mother Family History: Unknown Age (years): 28 Living Status: Cause of : Hit By Car Hx Family Asthma: Yes - child Hx Family Cancer: Yes - breast-sister Physical Exam - Physical Exam General Appearance: Alert Eye Exam: bilateral normal Ears, Nose, Throat: hearing grossly normal, normal ENT inspection, normal pharynx Neck: non-tender, full range of motion, supple, normal inspection Respiratory: chest non-tender, lungs clear, normal breath sounds, no respiratory distress, no accessory muscle use Cardiovascular/Chest: normal peripheral pulses, regular rate, rhythm, no edema, no gallop, no JVD Gastrointestinal/Abdominal: normal bowel sounds, non tender, soft, no organomegaly, no pulsatile mass, other Back Exam: normal inspection, CVA tenderness (L) - left sided flank pain , mild . states its much improved after morphin in EMS Extremity: normal range of motion, non-tender, normal inspection Neurologic: chief dispatcher service II-XII nml as tested, alert, normal mood/affect, oriented x 3 Skin Exam: normal color, warm/dry Progress - Progress Progress: 03/23/20 01:19 The patient states 4-year-old female that presents to the emergency department complaints of left-sided flank. She reports a history of kidney stones and states is the same pain that she has she complains of difficulty urinating as well.CT of the abdomen and pelvis is unremarkable.Urine is negative for any urinary tract infection we will discharge the patient patient follow primary care physician 1 to 2-day - EKG/XRAY/CT CT: unremarkable , no stone stones, no acute infection Departure - Departure Clinical Impression: Flank pain, Muscle strain Time of Disposition: :20 Disposition: Discharge to Home or Self Care Condition: Good Departure Forms: ED Discharge - Pt. Copy, Patient Portal Self Enrollment Referrals: KYLE MONTES IV, ADVENTURE CHALLENGE INSTRUCTOR [Primary Care Provider] - 1-2 Weeks Home Medications: Ambulatory Orders Albuterol Inhaler [Ventolin Hfa Inhaler] 1 puff INH PRN PRN 08/03/18 Zolpidem Tartrate [Ambien] 10 mg PO BEDTIME #30 tab 10/10/18 carBAMazepine [Tegretol] 300 mg PO TID #90 tab 10/10/18 Epinephrine [Epipen 2-Sky] 0.3 mg IJ Q30MIN #1 ml 01/25/20 diazePAM [Valium] 10 mg PO TID PRN 03/23/20 Additional Instructions: Please follow-up with your primary care physician in 1 to 2 days. Return to emergency department as needed
--- NOTE | 2020-03-23 01:04 | CT ---
EXAM DESCRIPTION: Abdoment/Pelvis w/o Contrast CLINICAL HISTORY: 34 years Female flank pain COMPARISON: 02/06/2020 TECHNIQUE: Multiple contiguous axial CT slices were taken from the diaphragms to the pubic symphysis without intravenous contrast. This exam was performed according to our departmental dose-optimization program, which includes automated exposure control, adjustment of the mA and/or kV according to patient size and/or use of iterative reconstruction technique. FINDINGS: The lung bases are clear. Visualized cardiomediastinal structures are normal. No focal hepatic lesions. Steatosis. gallbladder surgically absent bile ducts, pancreas, spleen and adrenals are normal. The kidneys, ureters and bladder are normal. The uterus is absent. No adnexal masses. The small bowel is normal. The appendix is normal. The large bowel is normal. No ascites, pneumatosis or pneumoperitoneum. No lymphadenopathy. The aorta and IVC are normal. There are no abdominal wall hernia defects. No destructive osseous lesions. IMPRESSION: 1. No acute abnormality evident. 2. Hepatic steatosis. Electronically signed by: Anjel Coulter MD 03/23/2020 1:02 AM [facility]
[2020-03-23 01:54] VITALS: O2SAT 96
[2020-03-23 01:59] VITALS: BP 130/97; TEMP 97.7
== END 2020-03-23 01:40 | disposition home or self-care (01) ==
LOC: ER 00:06
DX: S39.011A Strain of muscle, fascia and tendon of abdomen, initial encounter (principal); R30.0 Dysuria; J45.909 Unspecified asthma, uncomplicated; Z90.710 Acquired absence of both cervix and uterus; Z90.49 Acquired absence of other specified parts of digestive tract; R56.9 Unspecified convulsions; Z79.899 Other long term (current) drug therapy; Z88.1 Allergy status to other antibiotic agents; Z88.5 Allergy status to narcotic agent; Z88.8 Allergy status to other drugs, medicaments and biological substances; Z88.6 Allergy status to analgesic agent; X58.XXXA Exposure to other specified factors, initial encounter; Y92.9 Unspecified place or not applicable
CPT/HCPCS: 74176; 80048; 81001; 84703; 85025; J7030

== ENCOUNTER 2020-04-20 22:36 | Emergency (ER) | payer OTHER ==
[2020-04-20] MEDS ORDERED: ALPRAZolam 0.25 MG TAB PO ONE (22:47)
--- NOTE | 2020-04-20 22:49 | ED.PDOC ---
History of Present Illness - General Chief Complaint: Behavioral / Psych Stated Complaint: Anxiety Time Seen by Provider: 04/20/20 22:40 Source: patient - History of Present Illness Initial Comments: Pt W/ LONGSTANDING HISTORY OF ANXIETY, PANIC ATTACKS EXPERIENCING SOB, HYPERVENTILATION, PERIORAL NUMBNESS AND FINDER NUMBNESS X 45 MINUTES, SYMPTOMS BETTER SINCE ARRIVAL TO ER. DENIES KNOWN PRICIPITAING EVENT. DENIES ANYTHING MAKES BETTER. PREVIOUSLY ON ANTIDEPRESSANT BUT RAN OUT AND HAS NOT FOLLOWED UP. Allergies/Adverse Reactions: Allergies Aspirin Allergy (Verified 10/08/18 15:20) Azithromycin Allergy (Verified 10/08/18 15:20) Ibuprofen Allergy (Verified 10/08/18 15:20) Ketorolac Tromethamine [From Toradol] Allergy (Verified 10/08/18 15:20) Levofloxacin [From Levaquin] Allergy (Verified 10/08/18 15:20) Nitroglycerin Allergy (Verified 03/23/20 01:02) NSAIDs Allergy (Verified 03/23/20 01:02) Phenytoin [From Dilantin] Allergy (Verified 10/08/18 15:20) Tramadol Allergy (Verified 10/08/18 15:20) Vancomycin Allergy (Verified 10/08/18 15:20) Home Medications: Ambulatory Orders Albuterol Inhaler [Ventolin Hfa Inhaler] 1 puff INH PRN PRN 08/03/18 Zolpidem Tartrate [Ambien] 10 mg PO BEDTIME #30 tab 10/10/18 carBAMazepine [Tegretol] 300 mg PO TID #90 tab 10/10/18 Epinephrine (Anaphylaxis) [Epipen 2-Sky] 0.3 mg IJ Q30MIN #1 ml 01/25/20 diazePAM [Valium] 10 mg PO TID PRN 03/23/20 Cyclobenzaprine HCl [Flexeril] 10 mg PO TID PRN #20 tab 04/23/20 predniSONE [Prednisone] 20 mg PO DAILY #7 tab 04/23/20 Review of Systems - Review of Systems Constitutional: States: no symptoms reported EENTM: States: no symptoms reported Respiratory: States: see HPI, short of breath Cardiology: States: no symptoms reported, chest pain Gastrointestinal/Abdominal: States: no symptoms reported Genitourinary: States: no symptoms reported Musculoskeletal: States: see HPI Skin: States: see HPI Neurological: States: see HPI, anxiety, numbness Endocrine: States: no symptoms reported Past Medical History (General) - Patient Medical History Hx Seizures: Yes Hx Stroke: No Hx Dementia: No Hx Asthma: Yes Hx of COPD: No Hx Cardiac Disorders: No Hx Congestive Heart Failure: No Hx Pacemaker: No Hx Hypertension: No Hx Thyroid Disease: No Hx Diabetes: No Hx Gastroesophageal Reflux: No Hx Renal Disease: No Hx Cancer: No Hx of HIV: No Hx Hepatitis C: No Hx MRSA: No - Vaccination History Hx Tetanus, Diphtheria Vaccination: Yes Hx Influenza Vaccination: No Hx Pneumococcal Vaccination: No - Social History Hx Tobacco Use: No Hx Chewing Tobacco Use: No Hx Alcohol Use: No Hx Substance Use: No Hx Substance Use Treatment: No Hx Depression: No Hx Physical Abuse: No Hx Emotional Abuse: No Hx Suspected Abuse: No - Female History Patient : No Family Medical History - Family History Mother Family History: Unknown Age (years): 28 Living Status: Cause of : Hit By Car Hx Family Asthma: Yes - child Hx Family Cancer: Yes - breast-sister Physical Exam - Physical Exam General Appearance: Alert, Anxious, Comfortable Neck: supple, normal inspection, lymphadenopathy (R) - NO, lymphadenopathy (L) - NO, thyromegaly - NO Respiratory: chest non-tender, lungs clear, normal breath sounds, no respiratory distress, no accessory muscle use, respiratory distress - NO Cardiovascular/Chest: normal peripheral pulses, regular rate, rhythm, no edema, no gallop Neurological: alert, normal mood/affect, oriented x 3, anxious Appearance: appropriate appearance, appropriate insight, neat, no memory impairment Behavior/Eye Contact/Speech: cooperative, good eye contact, normal speech Thoughts/Hallucinations: normal thought pattern, no apparent hallucination, auditory hallucinations - NO, delusions - NO, flight of ideas - NO Skin Exam: normal color, warm/dry, cyanosis - NO Departure - Departure Clinical Impression: Anxiety attack Time of Disposition: 22:49 Disposition: Discharge to Home or Self Care Condition: Good Departure Forms: ED Discharge - Pt. Copy, Patient Portal Self Enrollment Instructions: DI for Psychosis, Panic Disorder Referrals: KYLE MONTES IV MINE LABORER [Primary Care Provider] - 1-2 Weeks Home Medications: Ambulatory Orders Albuterol Inhaler [Ventolin Hfa Inhaler] 1 puff INH PRN PRN 08/03/18 Zolpidem Tartrate [Ambien] 10 mg PO BEDTIME #30 tab 10/10/18 carBAMazepine [Tegretol] 300 mg PO TID #90 tab 10/10/18 Epinephrine (Anaphylaxis) [Epipen 2-Sky] 0.3 mg IJ Q30MIN #1 ml 01/25/20 diazePAM [Valium] 10 mg PO TID PRN 03/23/20 Cyclobenzaprine HCl [Flexeril] 10 mg PO TID PRN #20 tab 04/23/20 predniSONE [Prednisone] 20 mg PO DAILY #7 tab 04/23/20 Additional Instructions: YOU NEED TO FOLLOW UP WITH YOUR PSYCHIATRIST FOR REFILLS OF YOUR ANXIETY AND DEPRESSION MEDICATIONS. YOU SHOULD NOT ALLOW YOURSELF TO RUN OUT.
[2020-04-20 22:58] VITALS: BP 152/92; TEMP 97.3; O2SAT 97
== END 2020-04-20 23:00 | disposition home or self-care (01) ==
LOC: ER 22:36
DX: F41.9 Anxiety disorder, unspecified (principal); J45.909 Unspecified asthma, uncomplicated; R56.9 Unspecified convulsions; Z88.6 Allergy status to analgesic agent; Z88.1 Allergy status to other antibiotic agents; Z88.5 Allergy status to narcotic agent; Z79.899 Other long term (current) drug therapy

== ENCOUNTER 2020-04-23 20:53 | Emergency (ER) | payer OTHER ==
[2020-04-23] MEDS ORDERED: predniSONE 20 MG TAB PO ONE (21:17)
[2020-04-23] MEDS ORDERED: CYCLOBENZAPRINE HCL 10 MG TAB PO ONE (21:17)
--- NOTE | 2020-04-23 21:58 | RAD ---
2 VIEWS LUMBAR SPINE HISTORY: Lower back pain. COMPARISON: 02/03/2018 FINDINGS: No acute compression fracture is seen. There is normal lumbar alignment. The disc spaces and facet joints are intact. The sacroiliac joints are preserved. IMPRESSION: No acute lumbar findings are seen. Electronically signed by: Garth Smith MD 04/23/2020 9:56 PM [facility]
[2020-04-23 22:06] VITALS: BP 133/85
--- NOTE | 2020-04-23 22:10 | ED.PDOC ---
History of Present Illness - General Chief Complaint: General Stated Complaint: leg cramps and back pain Time Seen by Provider: 04/23/20 20:58 Source: patient Exam Limitations: no limitations - History of Present Illness Initial Comments: The patient is a 34-year-old female well-known to the emergency room presenting with what she reports as acute onset of low back pain. The patient was getting out of a chair when she twisted and felt something pop in her low back. She reports muscle spasm primarily to the right of the lumbar spine. There is no obvious step-off. I see no evidence of trauma. She moves extremities well. No incontinence. She was able to ambulate in without significant difficulty. The patient does have a history of drug-seeking behavior, and has apparently been out of her Valium for the last month. Timing/Duration: 1-3 hours Severity: severe Improving Factors: immobilization Worsening Factors: movement Associated Symptoms: denies symptoms Allergies/Adverse Reactions: Allergies Aspirin Allergy (Verified 10/08/18 15:20) Azithromycin Allergy (Verified 10/08/18 15:20) Ibuprofen Allergy (Verified 10/08/18 15:20) Ketorolac Tromethamine [From Toradol] Allergy (Verified 10/08/18 15:20) Levofloxacin [From Levaquin] Allergy (Verified 10/08/18 15:20) Nitroglycerin Allergy (Verified 03/23/20 01:02) NSAIDs Allergy (Verified 03/23/20 01:02) Phenytoin [From Dilantin] Allergy (Verified 10/08/18 15:20) Tramadol Allergy (Verified 10/08/18 15:20) Vancomycin Allergy (Verified 10/08/18 15:20) Home Medications: Ambulatory Orders Albuterol Inhaler [Ventolin Hfa Inhaler] 1 puff INH PRN PRN 08/03/18 Zolpidem Tartrate [Ambien] 10 mg PO BEDTIME #30 tab 10/10/18 carBAMazepine [Tegretol] 300 mg PO TID #90 tab 10/10/18 Epinephrine (Anaphylaxis) [Epipen 2-Sky] 0.3 mg IJ Q30MIN #1 ml 01/25/20 diazePAM [Valium] 10 mg PO TID PRN 03/23/20 Cyclobenzaprine HCl [Flexeril] 10 mg PO TID PRN #20 tab 04/23/20 predniSONE [Prednisone] 20 mg PO DAILY #7 tab 04/23/20 Review of Systems - Review of Systems Constitutional: States: no symptoms reported EENTM: States: no symptoms reported Respiratory: States: no symptoms reported Cardiology: States: no symptoms reported Gastrointestinal/Abdominal: States: no symptoms reported Genitourinary: States: no symptoms reported Skin: States: no symptoms reported Neurological: States: no symptoms reported Endocrine: States: no symptoms reported All other Systems: No Change from Baseline Past Medical History (General) - Patient Medical History Hx Seizures: Yes Hx Stroke: No Hx Dementia: No Hx Asthma: Yes Hx of COPD: No Hx Cardiac Disorders: No Hx Congestive Heart Failure: No Hx Pacemaker: No Hx Hypertension: No Hx Thyroid Disease: No Hx Diabetes: No Hx Gastroesophageal Reflux: No Hx Renal Disease: No Hx Cancer: No Hx of HIV: No Hx Hepatitis C: No Hx MRSA: No Surgical History: cholecystectomy, Hysterectomy - Vaccination History Hx Tetanus, Diphtheria Vaccination: Yes Hx Influenza Vaccination: No Hx Pneumococcal Vaccination: No - Social History Hx Tobacco Use: No Hx Chewing Tobacco Use: No Hx Alcohol Use: No Hx Substance Use: No Hx Substance Use Treatment: No Hx Depression: No Hx Physical Abuse: No Hx Emotional Abuse: No Hx Suspected Abuse: No - Female History Patient : No Family Medical History - Family History Mother Family History: Unknown Age (years): 28 Living Status: Cause of : Hit By Car Hx Family Asthma: Yes - child Hx Family Cancer: Yes - breast-sister Physical Exam - Physical Exam General Appearance: Alert Eye Exam: bilateral normal Ears, Nose, Throat: hearing grossly normal, normal pharynx Neck: non-tender, supple Respiratory: lungs clear, normal breath sounds, no respiratory distress, no accessory muscle use Cardiovascular/Chest: normal peripheral pulses, regular rate, rhythm, no edema Peripheral Pulses: radial,right: 2+, radial,left: 2+, dorsalis pedis,right: 2+, dorsalis pedis,left: 2+ Gastrointestinal/Abdominal: non tender - Obese, soft Rectal Exam: deferred Back Exam: no vertebral tenderness, CVA tenderness (R) Extremity: non-tender, normal inspection, no pedal edema, normal capillary refill Neurologic: deputy clerk of court II-XII nml as tested, alert, oriented x 3 Skin Exam: normal color Comments: Vital Signs - 24 hr 04/23/20 04/23/20 20:57 22:04 Temperature 96.8 F L Pulse Rate [ 105 H 95 H left arm] Respiratory 16 16 Rate Blood Pressure 136/96 133/85 [Left Arm] O2 Sat by Pulse 96 94 L Oximetry Progress - Progress Progress: 04/23/20 22:11 The patient is a 34-year-old female presented emergency room secondary to a low back strain. X-ray is reassuring. The patient will be written for a week's worth of prednisone and for some Flexeril for as needed use. Heat pad and stretching will likely prove beneficial. ER warnings are given. Follow-up with primary care doctor next week. nicki [email or web address] [phone] - Results/Orders Results/Orders: X-ray lumbar spine shows no acute pathology. Departure - Departure Clinical Impression: Low back strain Qualifiers: Encounter type: initial encounter Qualified Code(s): S39.012A - Strain of muscle, fascia and tendon of lower back, initial encounter Disposition: Discharge to Home or Self Care Condition: Fair Departure Forms: ED Discharge - Pt. Copy, Patient Portal Self Enrollment Instructions: Back Muscle Strain (DC) Diet: regular diet Activity: increase activity as tolerated Referrals: KYLE MONTES IV, PRACTICE OFFICE ASSOCIATE [Primary Care Provider] - 1-2 Weeks Prescriptions: Cyclobenzaprine HCl [Flexeril] 10 mg PO TID PRN #20 tab PRN Reason: Muscle Spasms predniSONE [Prednisone] 20 mg PO DAILY #7 tab Home Medications: Ambulatory Orders Albuterol Inhaler [Ventolin Hfa Inhaler] 1 puff INH PRN PRN 08/03/18 Zolpidem Tartrate [Ambien] 10 mg PO BEDTIME #30 tab 10/10/18 carBAMazepine [Tegretol] 300 mg PO TID #90 tab 10/10/18 Epinephrine (Anaphylaxis) [Epipen 2-Sky] 0.3 mg IJ Q30MIN #1 ml 01/25/20 diazePAM [Valium] 10 mg PO TID PRN 03/23/20 Cyclobenzaprine HCl [Flexeril] 10 mg PO TID PRN #20 tab 04/23/20 predniSONE [Prednisone] 20 mg PO DAILY #7 tab 04/23/20 Additional Instructions: The patient is a 34-year-old female presented emergency room secondary to a low back strain. X-ray is reassuring. The patient will be written for a week's worth of prednisone and for some Flexeril for as needed use. Heat pad and stretching will likely prove beneficial. ER warnings are given. Follow-up with primary care doctor next week.
[2020-04-23 22:16] VITALS: TEMP 97.2; O2SAT 95
== END 2020-04-23 22:16 | disposition home or self-care (01) ==
LOC: ER 20:53
DX: S39.012A Strain of muscle, fascia and tendon of lower back, initial encounter (principal); R56.9 Unspecified convulsions; J45.909 Unspecified asthma, uncomplicated; Z79.899 Other long term (current) drug therapy; Z88.6 Allergy status to analgesic agent; Z88.8 Allergy status to other drugs, medicaments and biological substances; Z88.5 Allergy status to narcotic agent; Z88.1 Allergy status to other antibiotic agents; X58.XXXA Exposure to other specified factors, initial encounter; Y93.89 Activity, other specified; Y92.9 Unspecified place or not applicable
CPT/HCPCS: 72100; J7512

== ENCOUNTER 2020-05-10 16:47 | Emergency (ER) | payer OTHER ==
[2020-05-10] MEDS ORDERED: ONDANSETRON ODT 8 MG TAB SL ONE (16:57)
[2020-05-10] MEDS ORDERED: HYDROcodone 5MG/APAP 325MG 1 EA TAB PO ONE (16:57)
--- NOTE | 2020-05-10 16:59 | ED.PDOC ---
History of Present Illness - General Chief Complaint: Respiratory Problem Stated Complaint: n/v, loss of taste Time Seen by Provider: 05/10/20 16:56 Source: patient Exam Limitations: no limitations - History of Present Illness Comments: Is a 34-year-old female with history of asthma presenting to the emergency department with cough, body aches, headaches, nausea, vomiting began this morning. She has a known Covid exposure. 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 She was not wearing a mask. She reports loss of taste and smell. Allergies/Adverse Reactions: Allergies Aspirin Allergy (Verified 10/08/18 15:20) Azithromycin Allergy (Verified 10/08/18 15:20) Ibuprofen Allergy (Verified 10/08/18 15:20) Ketorolac Tromethamine [From Toradol] Allergy (Verified 10/08/18 15:20) Levofloxacin [From Levaquin] Allergy (Verified 10/08/18 15:20) Nitroglycerin Allergy (Verified 03/23/20 01:02) NSAIDs Allergy (Verified 03/23/20 01:02) Phenytoin [From Dilantin] Allergy (Verified 10/08/18 15:20) Tramadol Allergy (Verified 10/08/18 15:20) Vancomycin Allergy (Verified 10/08/18 15:20) Home Medications: Ambulatory Orders Albuterol Inhaler [Ventolin Hfa Inhaler] 1 puff INH PRN PRN 08/03/18 carBAMazepine [Tegretol] 300 mg PO TID #90 tab 10/10/18 Epinephrine (Anaphylaxis) [Epipen 2-Sky] 0.3 mg IJ Q30MIN #1 ml 01/25/20 diazePAM [Valium] 10 mg PO TID PRN 03/23/20 Albuterol Inhaler [Ventolin Hfa Inhaler] 2 - 4 puff INH Q4H PRN 7 Days #1 inh aler 05/10/20 Benzonatate Perles [Tessalon Perles] 100 mg PO Q4HR PRN #20 cap 05/10/20 Melatonin 10 mg PO DAILY 05/10/20 Ondansetron Odt [Zofran ODT] 4 - 8 mg PO Q6H PRN #12 tab 05/10/20 Review of Systems - Review of Systems Constitutional: States: chills, fever EENTM: States: nose congestion, throat pain. Denies: ear pain, nose pain Respiratory: States: cough, short of breath, wheezing Cardiology: Denies: chest pain, edema Gastrointestinal/Abdominal: States: nausea, vomiting. Denies: abdominal pain Musculoskeletal: Denies: back pain, joint pain Skin: Denies: lesions, rash Neurological: States: headache. Denies: paresthesia, weakness Endocrine: States: no symptoms reported Hematologic/Lymphatic: States: no symptoms reported Past Medical History (General) - Patient Medical History Hx Seizures: Yes Hx Stroke: No Hx Dementia: No Hx Asthma: Yes Hx of COPD: No Hx Cardiac Disorders: No Hx Congestive Heart Failure: No Hx Pacemaker: No Hx Hypertension: No Hx Thyroid Disease: No Hx Diabetes: No Hx Gastroesophageal Reflux: No Hx Renal Disease: No Hx Cancer: No Hx of HIV: No Hx Hepatitis C: No Hx MRSA: No - Vaccination History Hx Tetanus, Diphtheria Vaccination: Yes Hx Influenza Vaccination: No Hx Pneumococcal Vaccination: No - Social History Hx Tobacco Use: No Hx Chewing Tobacco Use: No Hx Alcohol Use: No Hx Substance Use: No Hx Substance Use Treatment: No Hx Depression: No Hx Physical Abuse: No Hx Emotional Abuse: No Hx Suspected Abuse: No - Female History Patient : No Family Medical History - Family History Mother Family History: Unknown Age (years): 28 Living Status: Cause of : Hit By Car Hx Family Asthma: Yes - child Hx Family Cancer: Yes - breast-sister Physical Exam - Physical Exam General Appearance: Alert, Obese Eye Exam: bilateral normal ENT Exam: hearing grossly normal, TMs normal Neck: non-tender, full range of motion, supple Respiratory: chest non-tender, lungs clear, normal breath sounds, no respiratory distress Cardiovascular/Chest: normal peripheral pulses, regular rate, rhythm, no edema Gastrointestinal/Abdominal: normal bowel sounds, non tender Extremity: normal range of motion, non-tender, normal inspection Neurologic: no motor/sensory deficits, alert, normal mood/affect, oriented x 3 Skin Exam: normal color, warm/dry Progress - Progress Progress: 05/10/20 17: Old records reviewed. This is the patient's third ER visit in the past month. She had a prescription for 45 Tylenol 3 tablets filled on by her primary care doctor 2 weeks ago. 05/10/20 17:44 Recheck. Discussed x-ray/Covid test findings. Recommended follow-up with PCP in 3 to 5 days for recheck and to discuss repeat Covid test if not improving. Strict warnings given to return to emergency room for intractable vomiting, shortness of breath, change in mental status, or new concerns.Patient refused Tessalon Perles for cough, so I recommended [id number] cough medication as directed. DDx: Covid, pneumonia, other viral URI MDM: Patient presenting with symptoms suggestive of COVID-19 infection, chest x-ray is clear, COVID-19 swab is negative. I discussed the decreased sensitivity of rapid Covid testing early on infection and possibility of a false negative test. Will treat symptomatically. Warnings given to return for worsening. Cesar Funes DO [facility] #[id number] 05/10/20 17:53 - Results/Orders Results/Orders: EXAM: Chest,1 View CLINICAL INDICATION: Cough COMPARISON: 10/21/2018 FINDINGS: A single view of the chest was obtained. The heart size is normal. The pulmonary vascularity is unremarkable. The lungs are clear. There is no consolidation, infiltrate, pleural effusion, or pneumothorax. IMPRESSION: No evidence of active pulmonary disease. Electronically signed by: Kyle Metcalf MD 05/10/2020 5:15 PM SALESFORCE BUSINESS ANALYST Rapid Covid test is negative Departure - Departure Clinical Impression: Viral upper respiratory tract infection with cough, Exposure to COVID-19 virus Disposition: Discharge to Home or Self Care Condition: Good Departure Forms: ED Discharge - Pt. Copy, Patient Portal Self Enrollment Instructions: Viral Upper Respiratory Infection, Adult (DC) Referrals: KYLE MONTES IV, AUTOMOBILE WRECKER [Primary Care Provider] - 1-5 Days Prescriptions: Benzonatate Perles [Tessalon Perles] 100 mg PO Q4HR PRN #20 cap PRN Reason: Cough Albuterol Inhaler [Ventolin Hfa Inhaler] 2 - 4 puff INH Q4H PRN 7 Days #1 inhaler PRN Reason: Wheezing Ondansetron Odt [Zofran ODT] 4 - 8 mg PO Q6H PRN #12 tab PRN Reason: Nausea Home Medications: Ambulatory Orders Albuterol Inhaler [Ventolin Hfa Inhaler] 1 puff INH PRN PRN 08/03/18 carBAMazepine [Tegretol] 300 mg PO TID #90 tab 10/10/18 Epinephrine (Anaphylaxis) [Epipen 2-Sky] 0.3 mg IJ Q30MIN #1 ml 01/25/20 diazePAM [Valium] 10 mg PO TID PRN 03/23/20 Albuterol Inhaler [Ventolin Hfa Inhaler] 2 - 4 puff INH Q4H PRN 7 Days #1 inhaler 05/10/20 Benzonatate Perles [Tessalon Perles] 100 mg PO Q4HR PRN #20 cap 05/10/20 Melatonin 10 mg PO DAILY 05/10/20 Ondansetron Odt [Zofran ODT] 4 - 8 mg PO Q6H PRN #12 tab 05/10/20
--- NOTE | 2020-05-10 17:17 | RAD ---
EXAM: Chest,1 View CLINICAL INDICATION: Cough COMPARISON: 10/21/2018 FINDINGS: A single view of the chest was obtained. The heart size is normal. The pulmonary vascularity is unremarkable. The lungs are clear. There is no consolidation, infiltrate, pleural effusion, or pneumothorax. IMPRESSION: No evidence of active pulmonary disease. Electronically signed by: Anjel Metcalf MD 05/10/2020 5:15 PM ACQUISITION ANALYST
[2020-05-10] MEDS ORDERED: DEXAMETHASONE 1 MG/ML BTTL PO ONE (17:49)
[2020-05-10] MEDS ORDERED: DEXAMETHASONE INJ 10 MG/ML VIAL ONE (17:59)
[2020-05-10] MEDS ORDERED: DEXAMETHASONE INJ 10 MG/ML VIAL PO ONE (17:59)
[2020-05-10 18:34] VITALS: BP 123/80; TEMP 97.3; O2SAT 100
== END 2020-05-10 18:00 | disposition home or self-care (01) ==
LOC: ER 16:47
DX: J06.9 Acute upper respiratory infection, unspecified (principal); Z20.822 Contact with and (suspected) exposure to COVID-19; R11.2 Nausea with vomiting, unspecified; R51.9 Headache, unspecified; J45.909 Unspecified asthma, uncomplicated; R56.9 Unspecified convulsions; E66.9 Obesity, unspecified; Z79.899 Other long term (current) drug therapy; Z88.1 Allergy status to other antibiotic agents; Z88.5 Allergy status to narcotic agent; Z88.6 Allergy status to analgesic agent; Z88.8 Allergy status to other drugs, medicaments and biological substances
CPT/HCPCS: 71045; 87635; J1100

== ENCOUNTER 2020-05-17 23:31 | Emergency (ER) | payer OTHER ==
[2020-05-17] MEDS ORDERED: SODIUM CHLORIDE 0.9% (FLUSH) 10 ML SYG IV PRN (23:41)
--- NOTE | 2020-05-17 23:47 | ED.PDOC ---
History of Present Illness - General Time Seen by Provider: 05/17/20 23:41 Source: patient, EMS - History of Present Illness Initial Comments: 34-year-old female with PMH of asthma, seizure disorder, anxiety who is brought in by EMS from home for chief complaint of chest pain. Patient reports chest pain has been going on for the past 3 days with gradual worsening. She states it worsened further this evening approximately 3 to 4 hours ago while she was watching her brother's take place at home on the computer. Pain is located to the center of the chest but radiates throughout the chest, constant, "feels like someone hit me with a sledgehammer", rates it at 8/10 severity, worsens with palpation of the chest wall/deep breathing/exertion, states that she took her home Lexapro, Tegretol, and Valium a couple hours ago at home with little relief. Denies any known history of cardiac disease or history of ACS. Denies any illicit substance usage. EMS reported pt stable en route but drowsy from taking all her home meds. Pt denies any intentional overdose or any ideas or attempts of self-harm. Denies fevers, chills, cough, dyspnea, abd pain, n/v/d, leg swelling, leg pain. PCP is Lui Ware. Allergies/Adverse Reactions: Allergies Aspirin Allergy (Verified 10/08/18 15:20) Azithromycin Allergy (Verified 10/08/18 15:20) Ibuprofen Allergy (Verified 10/08/18 15:20) Ketorolac Tromethamine [From Toradol] Allergy (Verified 10/08/18 15:20) Levofloxacin [From Levaquin] Allergy (Verified 10/08/18 15:20) Nitroglycerin Allergy (Verified 03/23/20 01:02) NSAIDs Allergy (Verified 03/23/20 01:02) Phenytoin [From Dilantin] Allergy (Verified 10/08/18 15:20) Tramadol Allergy (Verified 10/08/18 15:20) Vancomycin Allergy (Verified 10/08/18 15:20) Home Medications: Ambulatory Orders Albuterol Inhaler [Ventolin Hfa Inhaler] 1 puff INH PRN PRN 08/03/18 carBAMazepine [Tegretol] 300 mg PO TID #90 tab 10/10/18 Epinephrine (Anaphylaxis) [Epipen 2-Sky] 0.3 mg IJ Q30MIN #1 ml 01/25/20 diazePAM [Valium] 10 mg PO TID PRN 03/23/20 Albuterol Inhaler [Ventolin Hfa Inhaler] 2 - 4 puff INH Q4H PRN 7 Days #1 inhaler 05/10/20 Benzonatate Perles [Tessalon Perles] 100 mg PO Q4HR PRN #20 cap 05/10/20 Melatonin 10 mg PO DAILY 05/10/20 Ondansetron Odt [Zofran ODT] 4 - 8 mg PO Q6H PRN #12 tab 05/10/20 Review of Systems - Review of Systems Review of Systems: 05/17/20 23:47 as per HPI All other Systems: Reviewed and Negative Past Medical History (General) - Patient Medical History Hx Seizures: Yes Hx Stroke: No Hx Dementia: No Hx Asthma: Yes Hx of COPD: No Hx Cardiac Disorders: No Hx Congestive Heart Failure: No Hx Pacemaker: No Hx Hypertension: No Hx Thyroid Disease: No Hx Diabetes: No Hx Gastroesophageal Reflux: No Hx Renal Disease: No Hx Cancer: No Hx of HIV: No Hx Hepatitis C: No Hx MRSA: No - Vaccination History Hx Tetanus, Diphtheria Vaccination: Yes Hx Influenza Vaccination: No Hx Pneumococcal Vaccination: No - Social History Hx Tobacco Use: No Hx Chewing Tobacco Use: No Hx Alcohol Use: No Hx Substance Use: No Hx Substance Use Treatment: No Hx Depression: No Hx Physical Abuse: No Hx Emotional Abuse: No Hx Suspected Abuse: No - Female History Patient : No Family Medical History - Family History Mother Family History: Unknown Age (years): 28 Living Status: Cause of : Hit By Car Hx Family Asthma: Yes - child Hx Family Cancer: Yes - breast-sister Physical Exam - Physical Exam General Appearance: Alert, Comfortable, No apparent distress, Obese Eye Exam: bilateral normal Ears, Nose, Throat: hearing grossly normal, normal ENT inspection, normal pharynx Neck: non-tender, full range of motion, supple, normal inspection Respiratory: lungs clear, normal breath sounds, no respiratory distress, no accessory muscle use Cardiovascular/Chest: normal peripheral pulses, regular rate, rhythm, no edema, no gallop, no JVD, no murmur, other - Chest wall ttp, reproduces/worsens chest pain sx's Peripheral Pulses: radial,right: 2+, radial,left: 2+ Gastrointestinal/Abdominal: non tender, soft, no organomegaly Back Exam: normal inspection, no CVA tenderness, no vertebral tenderness Extremity: normal range of motion, non-tender, normal inspection, no pedal edema, no calf tenderness, normal capillary refill Neurologic: inspector automatic typewriter II-XII nml as tested, no motor/sensory deficits, alert, normal mood/affect, oriented x 3, other - appears slightly drowsy Skin Exam: normal color, warm/dry Progress - Progress Progress: 05/17/20 23:48 Chest pain -Appears very atypical in nature. Consider musculoskeletal versus anxiety/panic attack most likely. Consider also GERD, ACS, pneumonia, other -Patient stable upon ED arrival, vitals within normal limits. Patient is negative for PE by PERC rule. -Obtain stat cardiac work-up, monitor in the ED 05/18/20 01:00 -Patient has remained stable in the ED with observation. She is sleeping comfortably in the ED bed in no distress. She reports all of her symptoms appear resolved without any ED treatment. I advised her that I believe taking all of her medications at once made her very drowsy and to avoid this in the future. Chest pain does not appear to be cardiac in nature as EKG appears unchanged from 2019 EKG and troponin level was negative. Her HEART score is 1. Remainder of labs pretty unremarkable. -Discussed all findings with the patient. I suspect that her chest pain is likely of noncardiac origin such as anxiety or musculoskeletal in nature. I advised that she follow-up closely with her PCP. -Discharge home in good condition, return warnings discussed at length. Reyes Lee MD Billing #[id number] 05/17/20 23:41 IV Care:Saline Lock per Protoc QSHIFT Telemetry .ONCE Sodium Chloride 0.9% (Flush) [Saline Flush Syringe] 10 ml IV PRN PRN Pulse Oximetry Assessment DAILY 05/17/20 23:45 EKG STAT 05/18/20 09:00 Pulse Ox Daily Laboratory Results - last 24 hr 05/17/20 05/17/20 05/18/20 23:31 23:31 00:09 WBC 7.6 RBC 4.58 Hgb 13.1 Hct 39.0 MCV 85.2 MCH 28.6 MCHC 33.6 RDW 13.5 Plt Count 290 MPV 7.7 Absolute Neuts (auto) 4.80 Absolute Lymphs (auto) 2.10 Absolute Monos (auto) 0.50 Absolute Eos (auto) 0.20 Absolute Basos (auto) 0.00 Neutrophils % 62.6 Lymphocytes % 28.3 Monocytes % 6.8 Eosinophils % 2.0 Basophils % 0.3 Sodium 139 Potassium 3.8 Chloride 102 Carbon Dioxide 27 Anion Gap 13.8 BUN 16 Creatinine 0.68 BUN/Creatinine Ratio 23.5 H Random Glucose 160 H Serum Osmolality 282.1 Calcium 8.8 Total Bilirubin 0.2 AST 20 ALT 25 Alkaline Phosphatase 108 Troponin I < 0.02 B-Natriuretic Peptide < 15.0 Serum Total Protein 6.9 Albumin 3.5 Globulin 3.4 Albumin/Globulin Ratio 1.0 L - EKG/XRAY/CT EKG: Sinus - Normal sinus rhythm with incomplete right bundle branch block, heart rate 85, no ST elevations or Q waves noted, left axis deviation noted, intervals normal, compared to 10/21/18 EKG appears largely unchanged XRAY: chest - No acute processes per my read Departure - Departure Clinical Impression: Anxiety, Chest pain, atypical, Musculoskeletal chest pain Time of Disposition: 00:58 Disposition: Discharge to Home or Self Care Condition: Good Instructions: Anxiety, Adult (DC), Costochondritis (DC) Diet: low fat, low cholesterol Activity: increase activity as tolerated Referrals: KYLE WARE IV, BRIDGE IRONWORKER [Primary Care Provider] - 1-2 Weeks Home Medications: Ambulatory Orders Albuterol Inhaler [Ventolin Hfa Inhaler] 1 puff INH PRN PRN 08/03/18 carBAMazepine [Tegretol] 300 mg PO TID #90 tab 10/10/18 Epinephrine (Anaphylaxis) [Epipen 2-Sky] 0.3 mg IJ Q30MIN #1 ml 01/25/20 diazePAM [Valium] 10 mg PO TID PRN 03/23/20 Albuterol Inhaler [Ventolin Hfa Inhaler] 2 - 4 puff INH Q4H PRN 7 Days #1 inhaler 05/10/20 Benzonatate Perles [Tessalon Perles] 100 mg PO Q4HR PRN #20 cap 05/10/20 Melatonin 10 mg PO DAILY 05/10/20 Ondansetron Odt [Zofran ODT] 4 - 8 mg PO Q6H PRN #12 tab 05/10/20 Additional Instructions: Gradually increase your activity level as tolerated over the next several days. You may continue to take [id number] medications as needed for control of pain and inflammation such as ibuprofen 600 mg every 6 hours as needed and Tylenol 650 mg every 6 hours as needed. Return to the ED if you develop any new or concerning symptoms such as worsening or changing chest pain, shortness of b reath, etc. Follow-up with your primary care physician is recommended in the next 1 to 2 weeks for repeat evaluation or sooner as needed.
--- NOTE | 2020-05-18 00:25 | RAD ---
EXAM DESCRIPTION: Chest,1 View CLINICAL HISTORY: chest pain, anxiety COMPARISON: Chest x-ray 05/10/2020. TECHNIQUE: Single view of the chest. FINDINGS: Lung volumes adequate. Cardiac silhouette is unchanged. No pneumothorax or large pleural effusion. No focal consolidation. Unchanged haziness projecting over the bilateral lung santos, likely secondary to chest wall/breast attenuation artifact. IMPRESSION: No acute chest findings. Electronically signed by: Catarina Mcmillan MD 05/18/2020 12:24 AM [facility]
[2020-05-18 01:10] VITALS: BP 113/68; TEMP 98.4; O2SAT 94
== END 2020-05-18 01:00 | disposition home or self-care (01) ==
LOC: ER 23:31
DX: R07.89 Other chest pain (principal); F41.9 Anxiety disorder, unspecified; I45.10 Unspecified right bundle-branch block; J45.909 Unspecified asthma, uncomplicated; R56.9 Unspecified convulsions; Z79.899 Other long term (current) drug therapy; Z88.6 Allergy status to analgesic agent; Z88.8 Allergy status to other drugs, medicaments and biological substances; Z88.5 Allergy status to narcotic agent; Z88.1 Allergy status to other antibiotic agents

== ENCOUNTER 2020-05-26 19:38 | Emergency (ER) | payer OTHER ==
[2020-05-26] MEDS ORDERED: SODIUM CHLORIDE 0.9% 1000ML 1,000 ML IVS ONE ×2 (19:48→21:45)
[2020-05-26] MEDS ORDERED: PROMETHAZINE HCL INJ 25 MG in SODIUM CHLORIDE 0.9% 50ML 50 ML IVPB ONE (19:48)
[2020-05-26] MEDS ORDERED: PANTOPRAZOLE SODIUM IV 40 MG VIAL IV ONE (19:48)
[2020-05-26] MEDS ORDERED: ALUMINUM & MAGNESIUM HYDROXIDE 30 ML UD PO ONE (20:31)
[2020-05-26] MEDS ORDERED: SUCRALFATE 1 GM/10 ML 1 GM UD PO ONE (20:31)
[2020-05-26] MEDS ORDERED: ONDANSETRON INJ 4 MG/2 ML VIAL IV ONE (21:02)
--- NOTE | 2020-05-26 21:40 | CT ---
EXAM: CT Abdomen and Pelvis Without Intravenous Contrast CLINICAL HISTORY: The patient is 34 years old and is Female; nv/abd pain TECHNIQUE: Axial computed tomography images of the abdomen and pelvis without intravenous contrast. Sagittal and coronal reformatted images were created and reviewed. This CT exam was performed using one or more of the following dose reduction techniques: automated exposure control, adjustment of the mA and/or kV according to patient size, and/or use of iterative reconstruction technique. COMPARISON: March 23, 2020 FINDINGS: Lung bases: Unremarkable. No mass. No consolidation. ABDOMEN: Liver: Unremarkable. Gallbladder and bile ducts: Cholecystectomy No ductal dilation. Pancreas: Unremarkable. No ductal dilation. Spleen: Unremarkable. No splenomegaly. Adrenals: Unremarkable. No mass. Kidneys and ureters: Unremarkable. No obstructing stones. No hydronephrosis. Stomach and bowel: Unremarkable. No obstruction. No mucosal thickening. PELVIS: Appendix: No findings to suggest acute appendicitis. Bladder: Unremarkable. No stones. Reproductive: Unremarkable as visualized. ABDOMEN and PELVIS: Intraperitoneal space: Unremarkable. No free air. No significant fluid collection. Bones/joints: No acute fracture. No dislocation. Soft tissues: Unremarkable. Vasculature: Unremarkable. No abdominal aortic aneurysm. Lymph nodes: Unremarkable. No enlarged lymph nodes. IMPRESSION: No acute intra-abdominal abnormality. Electronically signed by: Enrique Cuevas MD 05/26/2020 9:39 PM DEGREASER OPERATOR
[2020-05-26] MEDS ORDERED: diazePAM INJ 10 MG/2 ML SYG IV ONE (21:46)
--- NOTE | 2020-05-26 22:35 | ED.PDOC ---
History of Present Illness - General Chief Complaint: GI Problem Stated Complaint: N/V/D, LLR abd/back pain onset 0300 Time Seen by Provider: 05/26/20 19:39 Source: patient Exam Limitations: no limitations - History of Present Illness Initial Comments: The patient is a 34-year-old female presented emergency room secondary to nausea and vomiting starting this morning. She does have some pain in the right lower quadrant. No fever. No diarrhea. She states she has thrown up once and hours this morning. She is not able to hold down her medications and she does have epilepsy. Timing/Duration: other - 12 hours Severity: moderate Improving Factors: nothing Worsening Factors: eating Associated Symptoms: loss of appetite, malaise, nausea/vomiting Allergies/Adverse Reactions: Allergies Aspirin Allergy (Verified 10/08/18 15:20) Azithromycin Allergy (Verified 10/08/18 15:20) Ibuprofen Allergy (Verified 10/08/18 15:20) Ketorolac Tromethamine [From Toradol] Allergy (Verified 10/08/18 15:20) Levofloxacin [From Levaquin] Allergy (Verified 10/08/18 15:20) Nitroglycerin Allergy (Verified 03/23/20 01:02) NSAIDs Allergy (Verified 03/23/20 01:02) Phenytoin [From Dilantin] Allergy (Verified 10/08/18 15:20) Tramadol Allergy (Verified 10/08/18 15:20) Vancomycin Allergy (Verified 10/08/18 15:20) Home Medications: Ambulatory Orders Albuterol Inhaler [Ventolin Hfa Inhaler] 1 puff INH PRN PRN 08/03/18 carBAMazepine [Tegretol] 300 mg PO TID #90 tab 10/10/18 Epinephrine (Anaphylaxis) [Epipen 2-Sky] 0.3 mg IJ Q30MIN #1 ml 01/25/20 diazePAM [Valium] 10 mg PO TID PRN 03/23/20 Albuterol Inhaler [Ventolin Hfa Inhaler] 2 - 4 puff INH Q4H PRN 7 Days #1 inhaler 05/10/20 Benzonatate Perles [Tessalon Perles] 100 mg PO Q4HR PRN #20 cap 05/10/20 Melatonin 10 mg PO DAILY 05/10/20 Ondansetron Odt [Zofran ODT] 4 - 8 mg PO Q6H PRN #12 tab 05/10/20 Famotidine 20 mg PO DAILY #30 tab 05/26/20 Ondansetron Odt [Zofran ODT] 4 mg PO Q8HR PRN #5 tab 05/26/20 Sucralfate Tab [Carafate Tab] 1 gm PO QID #60 tab 05/26/20 Review of Systems - Review of Systems Constitutional: States: malaise EENTM: States: no symptoms reported Respiratory: States: no symptoms reported Cardiology: States: no symptoms reported Gastrointestinal/Abdominal: States: abdominal pain, nausea, vomiting Genitourinary: States: no symptoms reported Musculoskeletal: States: no symptoms reported Skin: States: no symptoms reported Neurological: States: no symptoms reported Endocrine: States: no symptoms reported Hematologic/Lymphatic: States: no symptoms reported All other Systems: No Change from Baseline Past Medical History (General) - Patient Medical History Hx Seizures: Yes Hx Stroke: No Hx Dementia: No Hx Asthma: Yes Hx of COPD: No Hx Cardiac Disorders: No Hx Congestive Heart Failure: No Hx Pacemaker: No Hx Hypertension: No Hx Thyroid Disease: No Hx Diabetes: No Hx Gastroesophageal Reflux: No Hx Renal Disease: No Hx Cancer: No Hx of HIV: No Hx Hepatitis C: No Hx MRSA: No Surgical History: cholecystectomy, Hysterectomy - Vaccination History Hx Tetanus, Diphtheria Vaccination: Yes Hx Influenza Vaccination: No Hx Pneumococcal Vaccination: No - Social History Hx Tobacco Use: No Hx Chewing Tobacco Use: No Hx Alcohol Use: No Hx Substance Use: No Hx Substance Use Treatment: No Hx Depression: No Hx Physical Abuse: No Hx Emotional Abuse: No Hx Suspected Abuse: No - Female History Patient : No Family Medical History - Family History Mother Family History: Unknown Age (years): 28 Living Status: Cause of : Hit By Car Hx Family Asthma: Yes - child Hx Family Cancer: Yes - breast-sister Physical Exam - Physical Exam General Appearance: Alert, No apparent distress Eye Exam: bilateral normal Ears, Nose, Throat: hearing grossly normal, normal pharynx Neck: non-tender, full range of motion Respiratory: lungs clear, normal breath sounds, no respiratory distress, no accessory muscle use Cardiovascular/Chest: normal peripheral pulses, regular rate, rhythm, no edema Peripheral Pulses: radial,right: 2+, radial,left: 2+ Gastrointestinal/Abdominal: soft, other - Mild right-sided abdominal discomfort to palpation. Morbid obesity. No palpable mass. 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, alert, normal mood/affect, oriented x 3 Skin Exam: normal color Comments: Vital Signs - 24 hr 05/26/20 05/26/20 05/26/20 19:41 21:00 21:30 Temperature 97.1 F L Pulse Rate [ 88 99 H 86 monitor] Respiratory 18 16 16 Rate Blood Pressure 129/102 137/101 121/89 [Left Arm] O2 Sat by Pulse 95 96 92 L Oximetry 05/26/20 22:00 Temperature Pulse Rate [ 88 monitor] Respiratory 16 Rate Blood Pressure 125/85 [Left Arm] O2 Sat by Pulse 91 L Oximetry Progress - Progress Progress: 05/26/20 22:35 The patient is a 34-year-old female presented emergency room secondary to abdominal discomfort as well as nausea and vomiting starting this morning. This appears to most likely be an acute viral gastroenteritis. The patient has responded well to IV fluids. She did have a mild lactic acidosis and received 2 L of IV fluids. Symptoms do seem to be significantly better at this point. The patient will be written for Zofran to control nausea and vomiting. She is also going to be written for a couple of weeks of Pepcid and Carafate. She needs to maintain a bland diet and eat small frequent meals keep her self well-hydrated. She is to follow back up with her primary care doctor in a week or so. ER warnings are given. Resume routine seizure medications. [email or web address] [email or web address] [id number] - Results/Orders Results/Orders: Rapid coronavirus and rapid flu are negative. CT scan of abdomen pelvis shows no acute pathology. See report for details. 05/26/20 21:45 Sodium Chloride 0.9% 1000ML [Ns 1000 ml] 1,000 ml IVS ONCE Laboratory Results - last 24 hr 05/26/20 05/26/20 05/26/20 20:03 20:03 20:03 WBC 10.2 RBC 5.16 Hgb 14.6 Hct 43.9 MCV 85.1 MCH 28.4 MCHC 33.4 RDW 13.5 Plt Count 294 MPV 7.5 Absolute Neuts (auto) 8.10 H Absolute Lymphs (auto) 1.60 Absolute Monos (auto) 0.40 Absolute Eos (auto) 0.00 Absolute Basos (auto) 0.00 Neutrophils % 80.0 H Lymphocytes % 15.4 L Monocytes % 4.0 Eosinophils % 0.3 L Basophils % 0.3 Sodium Potassium Chloride Carbon Dioxide Anion Gap BUN Creatinine BUN/Creatinine Ratio Random Glucose Serum Osmolality Lactic Acid Calcium Magnesium Total Bilirubin AST ALT Alkaline Phosphatase Serum Total Protein Albumin Globulin Albumin/Globulin Ratio Amylase Lipase Urine Color Yellow Urine Appearance Cloudy Urine pH 5.0 Ur Specific Thayer >= 1.030 Urine Protein Negative Urine Glucose (UA) Negative Urine Ketones Negative Urine Blood Negative Urine Nitrite Negative Urine Bilirubin Negative Urine Urobilinogen 0.2 Ur Leukocyte Esterase Negative Urine RBC 0-1 Urine WBC 3-5 H Ur Epithelial Cells 10-20 Urine Bacteria 1+ Urine Mucus Trace Urine HCG, Qual Negative 05/26/20 05/26/20 20:03 20:03 WBC RBC Hgb Hct MCV MCH MCHC RDW Plt Count MPV Absolute Neuts (auto) Absolute Lymphs (auto) Absolute Monos (auto) Absolute Eos (auto) Absolute Basos (auto) Neutrophils % Lymphocytes % Monocytes % Eosinophils % Basophils % Sodium 137 Potassium 4.1 Chloride 99 L Carbon Dioxide 26 Anion Gap 16.1 BUN 20 H Creatinine 0.69 BUN/Creatinine Ratio 29.0 H Random Glucose 167 H Serum Osmolality 280.2 Lactic Acid 3.2 H* Calcium 9.1 Magnesium 2.0 Total Bilirubin 0.2 AST 23 ALT 24 Alkaline Phosphatase 124 H Serum Total Protein 7.9 Albumin 3.9 Globulin 4.0 H Albumin/Globulin Ratio 1.0 L Amylase 80 Lipase 32 Urine Color Urine Appearance Urine pH Ur Specific Thayer Urine Protein Urine Glucose (UA) Urine Ketones Urine Blood Urine Nitrite Urine Bilirubin Urine Urobilinogen Ur Leukocyte Esterase Urine RBC Urine WBC Ur Epithelial Cells Urine Bacteria Urine Mucus Urine HCG, Qual Departure - Departure Clinical Impression: Gastroenteritis, Lactic acidosis Disposition: Discharge to Home or Self Care Condition: Fair Departure Forms: ED Discharge - Pt. Copy, Patient Portal Self Enrollment Instructions: Viral Gastroenteritis, Adult (DC) Diet: bland diet Activity: increase activity as tolerated Referrals: KYLE MONTES IV, CASE REPAIRER [Primary Care Provider] - 1-2 Weeks Prescriptions: Ondansetron Odt [Zofran ODT] 4 mg PO Q8HR PRN #5 tab PRN Reason: Nausea--Moderate Sucralfate Tab [Carafate Tab] 1 gm PO QID #60 tab Famotidine 20 mg PO DAILY #30 tab Home Medications: Ambulatory Orders Albuterol Inhaler [Ventolin Hfa Inhaler] 1 puff INH PRN PRN 08/03/18 carBAMazepine [Tegretol] 300 mg PO TID #90 tab 10/10/18 Epinephrine (Anaphylaxis) [Epipen 2-Sky] 0.3 mg IJ Q30MIN #1 ml 01/25/20 diazePAM [Valium] 10 mg PO TID PRN 03/23/20 Albuterol Inhaler [Ventolin Hfa Inhaler] 2 - 4 puff INH Q4H PRN 7 Days #1 inhaler 05/10/20 Benzonatate Perles [Tessalon Perles] 100 mg PO Q4HR PRN #20 cap 05/10/20 Melatonin 10 mg PO DAILY 05/10/20 Ondansetron Odt [Zofran ODT] 4 - 8 mg PO Q6H PRN #12 tab 05/10/20 Famotidine 20 mg PO DAILY #30 tab 05/26/20 Ondansetron Odt [Zofran ODT] 4 mg PO Q8HR PRN #5 tab 05/26/20 Sucralfate Tab [Carafate Tab] 1 gm PO QID #60 tab 05/26/20 Additional Instructions: The patient is a 34-year-old female presented emergency room secondary to abdominal discomfort as well as nausea and vomiting starting this morning. This appears to most likely be an acute viral gastroenteritis. The patient has responded well to IV fluids. She did have a mild lactic acidosis and received 2 L of IV fluids. Symptoms do seem to be significantly better at this point. The patient will be written for Zofran to control nausea and vomiting. She is also going to be written for a couple of weeks of Pepcid and Carafate. She needs to maintain a bland diet and eat small frequent meals keep her self well-hydrated. She is to follow back up with her primary care doctor in a week or so. ER warnings are given. Resume routine seizure medications.
[2020-05-26 22:46] VITALS: BP 127/85; TEMP 97.2; O2SAT 95
== END 2020-05-26 22:46 | disposition home or self-care (01) ==
LOC: ER 19:38
DX: K52.9 Noninfective gastroenteritis and colitis, unspecified (principal); E87.2 Acidosis; J45.909 Unspecified asthma, uncomplicated; G40.909 Epilepsy, unspecified, not intractable, without status epilepticus; Z20.822 Contact with and (suspected) exposure to COVID-19; Z90.49 Acquired absence of other specified parts of digestive tract; Z79.899 Other long term (current) drug therapy; Z88.8 Allergy status to other drugs, medicaments and biological substances; Z88.5 Allergy status to narcotic agent; Z88.1 Allergy status to other antibiotic agents; Z88.6 Allergy status to analgesic agent
CPT/HCPCS: 36415; 74176; 80053; 81001; 81025; 82150; 83605; 83690; 83735; 85025; 87502; 87635; A4216; J2405; J2550; J3360; J7030